=== PATIENT | female | born 1950 | race Caucasian/White ===

== ENCOUNTER → 2016-10-22 | Outpatient (CLI) | payer OTHER ==
[~2016-10-22] VITALS: Ht 160 cm; Wt 109.4 kg
[~2016-10-22] MED LIST: ACETAMINOPHEN325 M1 PO; ADULT LOW DOSE81 MG PO; ADVAIR HFA 230M1 AER INH; ALBUTEROL2.5 MG/0.5 INH; ALLOPURINOL 30300 M1 PO; AMLODIPINE BESY10 MG PO; ASPIR 8181 MG PO; ASPIRIN EC81 M1 PO; AUGMENTIN 875875 MG PO; AZITHROMYCIN 2250 MG PO; CARDIZEM CD180 MG PO; CEFTIN 250 MG250 MG PO; CEPACOL SORE T1 EAC7; COLACE100 MG PO; CORTISPORIN OTI10 M2; CORTISPORIN OTI10 ML OTIC; COUMADIN 3 MG TA3 M1 PO; COUMADIN 4 MG TA4 M1 PO; COUMADIN 5 MG TA5 M1 PO; COZAAR 25 MG TA25 M1 PO; DOLOPHINE HCL10 MG PO; DUONEB 2.5-0.5 M3 ML INH; EX-LAX MAXIMUM25 MG PO; FLECAINIDE ACET50 M1 PO; FOLIC ACID1 MG PO; GABAPENTIN800 M1 PO; INDAPAMIDE2.5 MG PO; LASIX 40 MG TAB40 M2 PO; LIPITOR10 MG PO; LOVENOX100 MG/1 M SQ; LYRICA300 MG PO; MAG-AL PLUS XS30 ML PO; METHADONE HCL 110 M1 PO; METHOTREXATE 22.5 M1 PO; METHOTREXATE 22.5 MG PO; MILK OF MA2400 MG/10 PO; MOBIC15 MG PO; NEO-POLYMYXIN-H10 ML OTIC; NEO/POLY/HC OTIC; NEURONTIN 300300 M1 PO; NEURONTIN 300M300 M2 PO; NEW BLOOD PRESSURE; NOLVADEX20 MG; NOLVADEX20 MG PO; OXCARBAZEPINE150 MG PO; OXCARBAZEPINE300 MG PO; OXYGEN; PEPCID20 MG PO; POTASSIUM20 PO; PRADAXA150 MG PO; PREDNISONE 10 M10 MG; PREDNISONE 20 M20 MG PO; PROAIR HFA8.5 GM INH; PROVENTIL; RECTICARE30 GM TP; SERTRALINE HCL50 MG PO; SPIRIVA INH; SPIRIVA18 MCG INH; STOOL SOFTENER; TENORMIN50 MG PO; TRILEPTAL 300300 MG PO; TRILEPTAL150 MG PO; TYLENOL325 MG PO; VENTOLIN HFA INH8 GM INH; VERAPAMIL ER180 MG PO; VITAMIN D400 UNI1; WATER PILL; ZOLOFT50 MG PO
--- NOTE | ~2016-10-22 | HPC ---
[facility] [address] PAIN MANAGEMENT CONSULTATION Name: DAVID VINCENT Room #: REG MICHAEL Heber.#: [id number] Admission: 10/22/16 Attend Phys: Asya Lai MD Discharge: Date of : 50 Report #: [id number] THIS REPORT FOR: //name// CC: Cole Lai DATE OF SERVICE: 10/22/2016 FOLLOWUP COMPLAINT: Here for medication renewal. FOLLOWUP HISTORY: The patient is a 66-year-old female who has been seen in the pain clinic because of chronic right arm pain. As you recall, she was injured a number of years ago. She continues to have pain and discomfort in her right arm, right wrist and hand. She feels that her medications are helpful. She would like to have the medications renewed. She has had no complication from their use. She notes that there has been some change in the pain course secondary to the change in weather. She feels that gabapentin, methadone and Neurontin continue to be efficacious. These enable her to engage in activities of daily living, she would not be able to without their use. She rates her pain as 5-6 at this juncture. She has pain and discomfort in her right arm as well as in her right leg. PHYSICAL EXAMINATION: GENERAL: BMI is 42, weight 109 kilograms, BMI is 42.7, weight 109 kilograms. VITAL SIGNS: Blood pressure 146/77, pulse 71, respiratory rate 18, room air saturation 94%. EXTREMITIES: The patient complains of pain in the right arm and right wrist especially, rates it as a 5-6 with it and it poses a deep aching pain. IMPRESSION: Chronic right arm pain treated with oxcarbazepine, Neurontin, methadone. RECOMMENDATIONS: We discussed treatment options with the patient. We will continue with her Trileptal 300 mg b.i.d.; Neurontin 300 mg 3 in the morning, 1 in the afternoon and 2 at bedtime; methadone 10, 2 in morning, 1 midday and 2 at night. She will call us if she has any problems with her medications. We would like to thank you for letting us participate in her care. We hope she continues to improve. <ELECTRONICALLY SIGNED> By: Asya Lai MD 10/25/16 0819 1426 1858 Asya Lai MD /nt
[2016-10-22 13:12] VITALS: BP 146/77
== END ==
LOC: PAIN 09:20
DX: G89.29 Other chronic pain (principal); I10 Essential (primary) hypertension; Z87.891 Personal history of nicotine dependence; J44.9 Chronic obstructive pulmonary disease, unspecified; I50.9 Heart failure, unspecified

== ENCOUNTER → 2016-11-18 | Outpatient (CLI) | payer OTHER ==
[~2016-11-18] VITALS: Ht 160 cm; Wt 107.2 kg
--- NOTE | ~2016-11-18 | HPC ---
[facility] [address] [address] PAIN MANAGEMENT CONSULTATION Name: DAVID VINCENT Room #: REG Renea MWill.#: [id number] Admission: 11/18/16 Attend Phys: Julio Silvestre DO Discharge: Date of : 50 Report #: [id number] THIS REPORT FOR: //name// CC: Cole Silvestre The patient is a 66-year-old female, prior seen in the pain clinic for neuropathic pain, brachial plexopathy (right side) requiring complex medication management. She has been stable for remarkably long time utilizing Trileptal 300 mg b.i.d., gabapentin 300 mg 3 tablets in the morning, 1 at noon, and 2 at night for a total of 6 a day and methadone 10 mg 2 in the morning, 1 at noon, and 2 at night. She was last seen by my partner, Dr. Lj Lai in the beginning of the month. She returns to pain clinic today noting that while medications have been helpful, she is having increasing pain in the right arm, which is quite problematic. She relates this to getting off of warfarin and starting Pradaxa. I researched the agent and there are no direct side effects of Pradaxa compatible with patient's increased neuropathic pain. Further, there are no drug interactions between Pradaxa and methadone, gabapentin or Trileptal. PHYSICAL EXAMINATION: Remains relatively unchanged. A 66-year-old female. BMI is 41.9 kilograms per meter squared. Vital signs stable as noted in the EMR. Cervical range of motion is modestly limited. Right arm has a significantly diminished supination, abduction is limited about 45 degrees. There is no light touch allodynia, but simply deep neuropathic aching in the shoulder and arm. ASSESSMENT: Neuropathic pain secondary to distant brachial plexopathy and injury requiring complex medication management. RECOMMENDATION: Given the patient has been stable for quite some time on these agents, the only seeming change is rotation from warfarin to Pradaxa, I would respectfully suggest that Dr. Carter consider rotating back to warfarin for at least 30 days to see if the symptoms erica. If they do, we can point to Pradaxa being the etiology of the change in her pain. If; however, she reverts back to warfarin for 30 days and pain remains unchanged, we can safely say that the changed Pradaxa had no effect and we will look at getting more aggressive with medication changes. I would like, however, to not make a great deal of changes in a patient who has been stable on some fairly significant central acting agents for several years, if the etiology of the pain change is correctable. Today, I have taken the liberty of renewing patient's baseline medication unchanged, methadone 10 mg 2 in the morning, 1 at noon and 2 at night, continuing Trileptal and gabapentin unchanged. Follow up in 2 months for reevaluation. She has a followup appointment with Dr. Carter later in [address] [place] [address] PAIN MANAGEMENT CONSULTATION Name: DAVID VINCENT Room #: REG MICHAEL Crawford#: [id number] Admission: 11/18/16 Attend Phys: Julio Silvestre DO Discharge: Date of : 50 Report #: [id number] November and I will ask that a copy of this dictation be sent to him and respectfully request the rotation back to warfarin or another agent in a class outside of [facility]. <ELECTRONICALLY SIGNED> By: Julio Silvestre DO 11/22/16 0811 1533 2049 Julio Silvestre DO /nt
[2016-11-18 13:12] VITALS: BP 135/70
== END | disposition home or self-care (01) ==
LOC: PAIN 07:07
DX: G54.0 Brachial plexus disorders (principal); G89.29 Other chronic pain; F11.20 Opioid dependence, uncomplicated; Z87.891 Personal history of nicotine dependence

== ENCOUNTER → 2017-02-10 | Outpatient (CLI) | payer OTHER ==
[~2017-02-10] VITALS: Ht 162.6 cm; Wt 110.0 kg
--- NOTE | ~2017-02-10 | HPC ---
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 She had been stable on methadone 10 mg 2 in the morning, 1 at noon and 2 at night for quite some time. Last visit 11/18/2016. Gabapentin 300 mg 6 a day, had prior been little higher, I believe we may have decreased that dose sometime this past fall. She had been doing quite well with this along with oxcarbazepine 300 mg b.i.d. She returns to pain clinic today noting pain is increasing in her right hand, this prompted a moderately prolonged visit, from 14:32 to 15:00 greater than 50% of the 25+ minute visit was spent counseling the patient. She notes she has been unable to afford methotrexate, which now costs $131. She also takes Pradaxa, which is again $132, fortunately Dr. Carter has been giving her samples for this, but with Spiriva and Advair for her chronic pulmonary disease, her medications are becoming quite onerous from an expense standpoint. Having discontinued the methotrexate due to cost concerns, she thought that this may have been increasing pain in her right arm. I am hard pressed think that discontinuing methotrexate would have affected neuropathic pain. She is actually describing transient epidsodic "waves" of pain in her right arm, which come on fairly quickly within seconds and last for 10-30 seconds, but are quite problematic. It has been going on for several months now, which on further discussion with the patient seems to have actually predated her cessation of methotrexate. PHYSICAL EXAMINATION: GENERAL: A 66-year-old female. VITAL SIGNS: BMI is 41.6 kilograms per meter squared. Uses supplemental oxygen. Vital signs stable with oxygen saturation 96 on 2 liters air. MUSCULOSKELETAL: Cervical range of motion is actually fairly good. Right arm has abduction limited about 45 degrees, unable to supinate. Does have some hyperpathia, allodynia about the right forearm. Remaining physical exam is unchanged. We reviewed the fact that opiate medications are being used to provide analgesia adequate to support activities of daily living, not attempting to achieve a specific pain score on the 0-10 Visual Analog Scale. The current opiate medications are providing sufficient analgesia to allow the patient to participate in activities of daily living. The patient is not exhibiting any aberrant behavior suggestive of drug diversion. The patient is not having any [address] [address] PAIN MANAGEMENT CONSULTATION Name: DAVID VINCENT Room #: REG [facility] Yvette#: [id number] Admission: 02/10/17 Attend Phys: Julio Silvestre DO Discharge: Date of : 50 Report #: [id number] adverse reactions to medications. The patient is not suffering from daytime somnolence or mental acuity changes. The patient is managing opiate-induced constipation with appropriate zfkt-rhb-btxvrdj agents and dietary considerations. The patient was counseled on concern for caution with operating a motor vehicle while using opiate medications. A physical exam was performed and the patient's functional status was evaluated. All patients with back pain were advised against the bed rest greater than 4 days and were advised to return to normal activities. Pain score assessment was noted and the treatment plan was reviewed with the patient. All current medications, both prescribed and OTC were reviewed and reconciled on the electronic medical record. Tobacco screening was accomplished and smoking cessation was advised when indicated. BMI was noted and diet/exercise modification was recommended for all patients following outside normal parameters. I reviewed with the patient today their responsibilities to safeguard prescription medications, reviewed their responsibility to utilize medications only as prescribed by the physician. They are to seek and receive pain medications only from 1 physician group ( [facility]). They are to use 1 pharmacy and keep the clinic informed if they change pharmacies. Their responsibilities include making followup visits in a timely fashion and to avoid abrupt discontinuation of medication usage. Their responsibilities further include bringing their medications (bottles from the pharmacy with residual pills) to the visit for possible confirmation of pill counts and the patient understands it is their responsibility to submit to random drug screens to ensure both that the medications prescribed are present, and that no other controlled substances are present. All prescriptions provided today were generated electronically. ASSESSMENT: Neuropathic pain, complex regional pain syndrome, right upper extremity, status post right brachial plexus avulsion injury greater than a decade ago requiring complex medication management. Incidentally, last urine drug screen was on October 2015, positive for prescribed medications. RECOMMENDATION: After a long discussion with the patient today, we have elected to increase gabapentin from 6 to 8 tablets a day. If after one week, this does not afford adequate relief, we will increase her oxcarbazepine from 300 mg b.i.d. to t.i.d. We will continue methadone unchanged 10 mg 2 in the morning, 1 at noon, and 2 at night. I have taken the liberty of writing for 2 months current medications. Follow up for medicaiton management in 2 months, earlier if needed. <ELECTRONICALLY SIGNED> By: Julio Silvestre DO 02/12/17 0932 1516 0216 Julio Silvestre DO /nt
[2017-02-10 14:20] VITALS: BP 141/85
== END | disposition home or self-care (01) ==
LOC: PAIN 07:49
DX: G90.511 Complex regional pain syndrome I of right upper limb (principal); I50.9 Heart failure, unspecified; F11.20 Opioid dependence, uncomplicated; J44.1 Chronic obstructive pulmonary disease with (acute) exacerbation; Z87.81 Personal history of (healed) traumatic fracture

== ENCOUNTER → 2017-03-26 | Outpatient (CLI) | payer OTHER | LOC: RAD 01:43 | DX: R92.1 Mammographic calcification found on diagnostic imaging of breast (principal) ==

== ENCOUNTER → 2017-04-17 | Outpatient (CLI) | payer OTHER ==
[~2017-04-17] VITALS: Ht 160 cm; Wt 111.3 kg
[2017-04-17 12:59] VITALS: BP 142/79
== END ==
LOC: PAIN 04-14 06:51
DX: M79.2 Neuralgia and neuritis, unspecified (principal); I10 Essential (primary) hypertension; Z87.891 Personal history of nicotine dependence; Z79.899 Other long term (current) drug therapy; Z98.890 Other specified postprocedural states; E66.01 Morbid (severe) obesity due to excess calories; Z68.41 Body mass index [BMI] 40.0-44.9, adult

== ENCOUNTER 2017-06-09 09:41 | Emergency (ER) | payer OTHER ==
[~2017-06-09] VITALS: Ht 160 cm; Wt 104.3 kg
--- NOTE | ~2017-06-09 | EKG ---
[address] [address] ELECTROCARDIOGRAM REPORT Name: DAVID VINCENT Room #: DEP HERMINIA Crawford#: [id number] Admission: 06/09/17 Attend Phys: Discharge: 06/09/17 Date of : 50 Report #: [id number] THIS REPORT FOR: //name// [facility] ED Test Date: 2017-06-09 Test Time: 10:01:21 Pat Name: DAVID VINCENT Department: Room: Gender: F Hematologist: MELONY : 1950 Requested By: Cole Lanza Order Number: [id number] MD: Walt Carter Measurements Intervals [place] Rate: 78 P: 52 NM: QRS: 24 QRSD: 178 T: 6 QT: 397 QTc: 453 Interpretive Statements Sinus rhythm RBBB Electronically Signed On 06-09-2017 16:48:45 CDT by Walt Carter [email or web address] <ELECTRONICALLY SIGNED> By: Walt Carter MD 06/09/17 1648 1001 1001 Walt Carter MD /EPI
--- NOTE | ~2017-06-09 | EKG ---
[address] [place] [address] ELECTROCARDIOGRAM REPORT Name: DAVID VINCENT Room #: DEP HREMINIA Crawford#: [id number] Admission: 06/09/17 Attend Phys: Discharge: 06/09/17 Date of : 50 Report #: [id number] THIS REPORT FOR: //name// [facility] ED Test Date: 2017-06-09 Test Time: 10:40:26 Pat Name: DAVID VINCENT Department: Room: Gender: F Rn Recruitment: MELONY : 1950 Requested By: Cole Lanza Order Number: [id number] MD: Walt Carter Measurements Intervals [place] Rate: 76 P: -21 [place]: 207 QRS: 16 QRSD: 149 T: 1 QT: 405 QTc: 456 Interpretive Statements Sinus rhythm Right bundle branch block Compared to ECG 09/18/2016 23:04:40 No significant changes Electronically Signed On 06-09-2017 16:49:48 CDT by Walt Carter [email or web address] <ELECTRONICALLY SIGNED> By: Walt Carter MD 06/09/17 1649 1040 39 Walt Carter MD /TORO
[2017-06-09] MEDS ORDERED: COUMADIN 2.5MG2.5 M1 PO (09:57)
[2017-06-09 10:26] LABS: HEMATOCRIT 35.6 % (37.0-47.0); HEMOGLOBIN 11.6 gm/dL (12.0-15.0); MANUAL DIFF YES; MCH 29.9 pg (26.0-34.0); MCHC 32.6 g/dL (28.0-37.0); MCV 91.6 fL (80.0-100.0); PLATELET COUNT 148 thou/uL (150-400); RBC 3.88 mil/uL (4.20-5.00); RDW 15.7 % (10.5-14.5); WBC 6.3 thou/uL (4.0-11.0)
[2017-06-09 10:34] LABS: ANION GAP 1 mmol/L (7-16); BUN 17 mg/dL (7-18); CHLORIDE 103 mmol/L (98-107); CO2 38 mmol/L (21-32); CREATININE 0.7 mg/dL (0.6-1.0); GLUCOSE 121 mg/dL (74-106); INR 2.7; POTASSIUM 4.5 mmol/L (3.5-5.1); SODIUM 142 mmol/L (136-145)
[2017-06-09 10:43] LABS: ALBUMIN 3.7 g/dL (3.4-5.0); ALKALINE PHOSPHATASE 118 U/L (46-116); SGOT 21 U/L (15-37); SGPT 19 U/L (30-65); TOTAL BILIRUBIN 0.2 mg/dL (<0.1-1.0); TOTAL PROTEIN 7.3 g/dL (6.4-8.2); TROPONIN-I < 0.04 ng/mL (<0.04-0.07)
[2017-06-09 11:00] LABS: ABSOLUTE NEUTROPHILS 5.4 thou/uL (1.4-8.2); ANISOCYTOSIS SLIGHT; TOTAL CELL COUNT 100
== END 2017-06-09 13:43 | disposition home or self-care (01) ==
LOC: ER 09:41
PROVIDERS: Emergency Medicine
DX: R06.00 Dyspnea, unspecified (principal); J44.9 Chronic obstructive pulmonary disease, unspecified; M06.9 Rheumatoid arthritis, unspecified; I48.91 Unspecified atrial fibrillation; I11.0 Hypertensive heart disease with heart failure; I50.9 Heart failure, unspecified; Z90.721 Acquired absence of ovaries, unilateral; Z88.5 Allergy status to narcotic agent; Z87.891 Personal history of nicotine dependence

== ENCOUNTER → 2017-06-20 | Outpatient (CLI) | payer OTHER ==
[~2017-06-20] VITALS: Ht 157.5 cm; Wt 110.2 kg
[~2017-06-20] MED LIST changes: +COUMADIN 2.5MG2.5 M1 PO
--- NOTE | ~2017-06-20 | HPC ---
[facility] [place] [address] PAIN MANAGEMENT CONSULTATION Name: DAVID VINCENT Room #: REG SWATIRenea Crawford#: [id number] Admission: 06/20/17 Attend Phys: Julio Silvestre DO Discharge: Date of : 50 Report #: [id number] THIS REPORT FOR: //name// CC: Cole Silvestre The patient is a 67-year-old female, long treated for neuropathic pain, status post brachial plexus avulsion (right) requiring high-risk complex medication management. Last seen on 04/17/2017. Continued on methadone 10 mg increased from 5 to 6 a day; gabapentin 300 mg, 2400 mg daily (3 in the morning, 2 at noon, 3 at night); oxcarbazepine 300 mg t.i.d. Last visit on 04/17/2017. We had obtained a urine drug screen. It was positive for prescribed medications as expected. She returns to the pain clinic today noting medications are helpful. The large bruise on her left arm. She does not remember what happened there, though she is on warfarin. She describes chronic deep aching sensation in that right arm. Rates it 6 on a VAS, exacerbated with movement. PHYSICAL EXAMINATION: Shows a pleasant 67-year-old female, BMI is elevated at 44.4 kg/m2. Blood pressure is elevated at 159/89, pulse 80, respirations 18. She has about 45 degrees abduction. She can pronate, but cannot supinate her right arm. Actually has pretty good flexion and extension at the elbow. Remarkable recoveries following nerve transposition surgery after the brachial plexus avulsion. We reviewed the fact that opiate medications are being used to provide analgesia adequate to support activities of daily living, not attempting to achieve a specific pain score on the 0-10 Visual Analog Scale. The current opiate medications are providing sufficient analgesia to allow the patient to participate in activities of daily living. The patient is not exhibiting any aberrant behavior suggestive of drug diversion. The patient is not having any adverse reactions to medications. The patient is not suffering from daytime somnolence or mental acuity changes. The patient is managing opiate-induced constipation with appropriate bjkx-kbq-kdahdvg agents and dietary considerations. The patient was counseled on concern for caution with operating a motor vehicle while using opiate medications. A physical exam was performed and the patient's functional status was evaluated. All patients with back pain were advised against the bed rest greater than 4 days and were advised to return to normal activities. Pain score assessment was noted and the treatment plan was reviewed with the patient. All current medications, both prescribed and OTC were reviewed and reconciled on the electronic medical record. Tobacco screening was accomplished and smoking cessation was advised when indicated. BMI was noted and diet/exercise modification was recommended for all patients following outside normal parameters. I reviewed with the patient today their responsibilities to [address] [address] PAIN MANAGEMENT CONSULTATION Name: DAVID VINCENT Room #: REG CL Yvette#: [id number] Admission: 06/20/17 Attend Phys: Julio Silvestre DO Discharge: Date of : 50 Report #: [id number] prescription medications, reviewed their responsibility to utilize medications only as prescribed by the physician. They are to seek and receive pain medications only from 1 physician group ([facility]). They are to use 1 pharmacy and keep the clinic informed if they change pharmacies. Their responsibilities include making followup visits in a timely fashion and to avoid abrupt discontinuation of medication usage. Their responsibilities further include bringing their medications (bottles from the pharmacy with residual pills) to the visit for possible confirmation of pill counts and the patient understands it is their responsibility to submit to random drug screens to ensure both that the medications prescribed are present, and that no other controlled substances are present. All prescriptions provided today were generated electronically. ASSESSMENT: Neuropathic pain requiring high-risk complex medication management. The patient with comorbidities including morbid obesity. Body mass index is 44.4 kg/m2. Chronic obstructive pulmonary disease. We did talk a little bit today about the patient changing from supplemental oxygen canisters to an oxygen concentrator. I suggested she follow up with her curriculum and assessment coordinator regarding this technology as I am not very well versed on outpatient care for her chronic obstructive pulmonary disease. She was admitted to the hospital on 06/09/2017 (again, last seen in the pain clinic on 04/17/2017) for shortness of breath. This appeared just to be an exacerbation of chronic obstructive pulmonary disease. Otherwise, the patient is doing well on current medications. We have elected to continue unchanged methadone 10 mg 6 a day, gabapentin 2400 mg a day, oxcarbazepine 900 mg a day. Follow up in 3 months for reevaluation. Discharged in good and stable condition. <ELECTRONICALLY SIGNED> By: Julio Silvestre DO 06/26/17 0847 1239 2138 Julio Silvestre DO /nt
[2017-06-20 15:09] VITALS: BP 159/89
== END | disposition home or self-care (01) ==
LOC: PAIN 14:00
DX: G62.9 Polyneuropathy, unspecified (principal); E66.01 Morbid (severe) obesity due to excess calories; Z68.41 Body mass index [BMI] 40.0-44.9, adult; J44.9 Chronic obstructive pulmonary disease, unspecified; Z79.899 Other long term (current) drug therapy; Z87.891 Personal history of nicotine dependence

== ENCOUNTER → 2017-09-19 | Outpatient (CLI) | payer OTHER ==
[~2017-09-19] VITALS: Ht 160 cm; Wt 101.6 kg
[~2017-09-19] MED LIST changes: +PREDNISONE 5 MG5 M1 PO
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
[2017-09-19 13:01] LABS: ABG SAMPLE TYPE ARTERIAL; BE(vivo) 3.6 mmol/L (-2 to +3); HCO3 28.8 mmol/L (22.0-26.0); LACTATE 0.85 mmol/L (0.5-2.0); O2(CT) 15.5 mL/dL (15.0-23.0); O2Hb 89.4 % (92.0-98.0); PO2 55.7 mmHg (80.0-100.0); pH 7.414 (7.360-7.450); sO2 89.2 % (92.0-98.0); tCO2 30.2 mmol/L (24.0-30.0)
[2017-09-19 13:02] LABS: STICK SITE L.BRACHIAL
[2017-09-19 14:30] LABS: HEMATOCRIT 36.5 % (37.0-47.0); HEMOGLOBIN 11.6 gm/dL (12.0-15.0); MCH 30.3 pg (26.0-34.0); MCHC 31.7 g/dL (28.0-37.0); MCV 95.5 fL (80.0-100.0); RBC 3.83 mil/uL (4.20-5.00); RDW 15.6 % (10.5-14.5); WBC 4.8 thou/uL (4.0-11.0)
[2017-09-19 14:34] VITALS: BP 137/60
[2017-09-19 14:40] LABS: CALCIUM 8.8 mg/dL (8.5-10.1); CREATININE 0.5 mg/dL (0.6-1.0)
[2017-09-19 14:45] LABS: % SATURATION 11 % (20-39); IRON 31 ug/dL (50-170); TIBC 286 ug/dL (250-450); UIBC 255 ug/dL
[2017-09-19 14:46] LABS: ALBUMIN 3.6 g/dL (3.4-5.0); TOTAL BILIRUBIN 0.1 mg/dL (<0.1-1.0); TOTAL PROTEIN 6.5 g/dL (6.4-8.2)
== END ==
LOC: PAIN 06:57
PROVIDERS: Anesthesiology Pain Medicine
DX: J44.9 Chronic obstructive pulmonary disease, unspecified (principal); G89.4 Chronic pain syndrome; M79.2 Neuralgia and neuritis, unspecified; Z98.890 Other specified postprocedural states; Z79.899 Other long term (current) drug therapy

== ENCOUNTER 2017-10-24 19:51 | Emergency (ER) | payer OTHER ==
[~2017-10-24] VITALS: Ht 160 cm; Wt 101.6 kg
[2017-10-24] MEDS ORDERED: ZPAK PO (21:20)
[2017-10-24 21:30] VITALS: BP 102/55
[2017-11-13] MEDS ORDERED: METHADONE HCL 110 M1 PO (13:50)
[2017-11-13] MEDS ORDERED: NEURONTIN 300300 M1 PO (13:50)
[2017-11-13] MEDS ORDERED: OXCARBAZEPINE300 MG PO (13:50)
[2018-01-15] MEDS ORDERED: OXCARBAZEPINE300 MG PO (14:31)
[2018-01-15] MEDS ORDERED: NEURONTIN 300300 M1 PO (14:31)
[2018-01-15] MEDS ORDERED: METHADONE HCL 110 M1 PO (14:31)
[2018-03-20] MEDS ORDERED: OXCARBAZEPINE300 MG PO (13:52)
[2018-03-20] MEDS ORDERED: METHADONE HCL 110 M1 PO (13:52)
[2018-03-20] MEDS ORDERED: NEURONTIN 300300 M1 PO (13:52)
[2018-05-15] MEDS ORDERED: OXCARBAZEPINE300 MG PO (07:57)
[2018-05-15] MEDS ORDERED: NEURONTIN 300300 M1 PO (07:57)
[2018-05-15] MEDS ORDERED: METHADONE HCL 110 M1 PO (07:57)
[2018-07-15] MEDS ORDERED: METHADONE HCL 110 M1 PO ×2 (14:03→14:32)
[2018-07-15] MEDS ORDERED: NEURONTIN 300300 M1 PO (14:32)
[2018-07-15] MEDS ORDERED: OXCARBAZEPINE300 MG PO (14:32)
== END 2017-10-24 21:31 | disposition home or self-care (01) ==
LOC: ER 19:51
DX: J06.9 Acute upper respiratory infection, unspecified (principal); I10 Essential (primary) hypertension; M06.9 Rheumatoid arthritis, unspecified; I48.91 Unspecified atrial fibrillation; I50.9 Heart failure, unspecified; Z87.891 Personal history of nicotine dependence; Z88.6 Allergy status to analgesic agent

== ENCOUNTER → 2017-11-13 | Outpatient (CLI) | payer OTHER ==
[~2017-11-13] VITALS: Ht 160 cm; Wt 98.0 kg
[~2017-11-13] MED LIST changes: +ZPAK PO
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
[2017-11-13 13:32] VITALS: BP 114/66
== END ==
LOC: PAIN 06:57
DX: M79.604 Pain in right leg (principal); M79.2 Neuralgia and neuritis, unspecified; Z79.899 Other long term (current) drug therapy

== ENCOUNTER → 2018-01-15 | Outpatient (CLI) | payer OTHER ==
[~2018-01-15] VITALS: Ht 160 cm; Wt 101.6 kg
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
[2018-01-15 14:09] VITALS: BP 144/64
== END ==
LOC: PAIN 07:11
DX: M79.2 Neuralgia and neuritis, unspecified (principal); Z79.899 Other long term (current) drug therapy

== ENCOUNTER → 2018-03-20 | Outpatient (CLI) | payer OTHER ==
[~2018-03-20] VITALS: Ht 160 cm; Wt 98.3 kg
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
[2018-03-20 13:21] VITALS: BP 151/69
== END ==
LOC: PAIN 07:36
DX: M79.601 Pain in right arm (principal); M79.2 Neuralgia and neuritis, unspecified; J44.9 Chronic obstructive pulmonary disease, unspecified

== ENCOUNTER → 2018-04-09 | Outpatient (CLI) | payer OTHER ==
[2018-04-09 16:13] LABS: HEMATOCRIT 31.4 % (37.0-47.0); HEMOGLOBIN 10.6 gm/dL (12.0-15.0); MCH 31.9 pg (26.0-34.0); MCHC 33.7 g/dL (28.0-37.0); MCV 94.6 fL (80.0-100.0); RBC 3.32 mil/uL (4.20-5.00); RDW 13.9 % (10.5-14.5); WBC 3.8 thou/uL (4.0-11.0)
[2018-04-09 16:28] LABS: % SATURATION 10 % (20-39); IRON 26 ug/dL (50-170); TIBC 267 ug/dL (250-450)
[2018-04-09 16:30] LABS: ALBUMIN 3.6 g/dL (3.4-5.0); CALCIUM 8.4 mg/dL (8.5-10.1); CREATININE 0.7 mg/dL (0.6-1.0); POTASSIUM 3.9 mmol/L (3.5-5.1); TOTAL BILIRUBIN 0.2 mg/dL (<0.1-1.0); TOTAL PROTEIN 6.2 g/dL (6.4-8.2)
== END ==
LOC: RAD 15:33
PROVIDERS: Internal Medicine Pulmonary Disease
DX: J16.8 Pneumonia due to other specified infectious organisms (principal); I51.7 Cardiomegaly; J98.4 Other disorders of lung; I50.9 Heart failure, unspecified; M25.311 Other instability, right shoulder; R91.8 Other nonspecific abnormal finding of lung field

== ENCOUNTER → 2018-05-15 | Outpatient (CLI) | payer OTHER ==
[~2018-05-15] VITALS: Ht 160 cm; Wt 96.3 kg
[2018-05-15 14:57] VITALS: BP 139/51
== END ==
LOC: PAIN 06:35
DX: M79.601 Pain in right arm (principal); G89.29 Other chronic pain; I10 Essential (primary) hypertension; M17.0 Bilateral primary osteoarthritis of knee; Z79.899 Other long term (current) drug therapy; Z79.891 Long term (current) use of opiate analgesic; Z87.891 Personal history of nicotine dependence

== ENCOUNTER → 2018-07-15 | Outpatient (CLI) | payer OTHER ==
[~2018-07-15] VITALS: Ht 160 cm; Wt 91.4 kg
--- NOTE | ~2018-07-15 | HPC ---
[facility] [address] [place] [address] PAIN MANAGEMENT CONSULTATION Name: DAVID VINCENT Room #: REG MICHAEL MHeber.#: [id number] Admission: 07/15/18 Attend Phys: Asya Lai MD Discharge: Date of : 50 Report #: [id number] THIS REPORT FOR: //name// CC: Cole Lai DATE OF SERVICE: 07/15/2018 FOLLOWUP COMPLAINT: Here for medication renewal. FOLLOWUP HISTORY: The patient is a 68-year-old female who has been followed in the Pain Clinic because of chronic pain. She has been treated since 2002. She continues to have neuropathic pain involving her right upper extremity. She finds that opioid medications over the years have been helpful. She uses methadone, which has been beneficial. She also continues to find that gabapentin 300 mg is helpful. She would like to have renewal of her medications. She continues to feel that her thinking remains clear. No confusion with use of her medications. Does continue to have some burning and dysesthesia involving her right arm. Pain is worse when she lets it hang in a dependent position. Rates her pain as a 5-10. Notes her pain improves when she holds her arm at chest level. Tylenol is beneficial as well. ALLERGIES: MORPHINE. CURRENT MEDICATIONS: Oxcarbazepine 300 mg t.i.d.; methadone 10 mg 1 p.o. a.m., 1 noon, 2 at bedtime; Coumadin 2.5 mg; Colace 100 mg; Zoloft 50 mg; albuterol 2.5/0.5 mL inhalation 4 times daily; potassium 20 mEq; Lasix 40 mg; amlodipine 10 mg; Lipitor 10 mg; atenolol 50 mg b.i.d.; oxygen; methotrexate 2.5 mg; 20 mg methotrexate weekly; Advair 2 puffs b.i.d.; folic acid 1 mg. PAIN CLINIC ASSESSMENT/PQRS: 1. Osteoarthritis. The patient has some left lower extremity as well as right lower extremity osteoarthritic changes. 2. The patient is complaining of some problems with her left lower extremity in regards to rheumatoid arthritis. 3. Height 5 feet 3 inches, weight 201 pounds, BMI is 35. 4. Vital signs: Blood pressure 145/74, pulse 60, respiratory rate 12, room air saturation 97%. 5. Pain intensity 5/6. 6. Risk assessment. The patient has not fallen in the last 3 months, but does need some assistance with walking. 7. Blood thinner. The patient is on warfarin. 8. History of hypertension. The patient is being treated for hypertension. 9. Opioid therapy greater than 6 weeks. The patient is receiving her medications from [place] [address] PAIN MANAGEMENT CONSULTATION Name: DAVID VINCENT Room #: REG CLRenea Crawford#: [id number] Admission: 07/15/18 Attend Phys: Asya Lai MD Discharge: Date of : 50 Report #: [id number] 10. Risk assessment tool, low risk 0/3 for use of opioids. 11. Functional assessment tool, . 12. Recreational drug use: The patient denies. 13. Tobacco: The patient is a former smoker. 14. Alcohol: The patient denies use of alcoholic beverages at this juncture. PHYSICAL EXAMINATION: GENERAL: The patient is a well-developed, well-nourished white female. She has nasal cannula in place. She is receiving oxygen. The patient's speech is fluent. Affect is appropriate. Speech is appropriate. The patient did find that her oxygen tank had run low while she was on her way to the hospital. HEENT: Normocephalic, atraumatic. Extraocular eye muscles intact. Sclerae nonicteric. Mucous membranes are moist. Nasal cannula in her nose. Hearing is within normal limits. Sclerae nonicteric. NECK: Supple, nontender. Right cervical exam without bruits. LUNGS: Clear without wheezing or rhonchi. The patient was a bit short of breath when she arrived secondary to her oxygen tank running out of oxygen. CARDIOVASCULAR: Regular rate. History of atrial fibrillation. ABDOMEN: Protuberant without organomegaly. EXTREMITIES: All extremities are with normal pulses. The patient has pain and discomfort involving her right arm. Notes some decreased function below the biceps and forearm areas. States her arm is sore as the ____. IMPRESSION: 1. 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 2. Hypertension. 3. 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 4. Hypercholesterolemia. 5. Respiratory problems/chronic obstructive pulmonary disease, uses 4 liters of oxygen. 6. Rheumatoid arthritis. 7. Factor V Leiden - on Coumadin. 8. History of atrial fibrillation. 9. Congestive heart failure. RECOMMENDATIONS: We discussed treatment options with the patient. At this juncture, she finds that her medications are helpful. She has returned to the Pain Clinic for a renewal. The patient states that while she was driving here, she noticed that her oxygen canisters started to misfunction. There was a lack of oxygen. She did have some difficulty secondary to low oxygenation. She was provided oxygen in the Pain Clinic. She was provided oxygen to return home. She will return the canister to the hospital. We explained to her the need to return this empty canister and states that she would. She would like to continue with her medications of methadone, oxcarbazepine, and gabapentin. A script for these medications have been written. She will call us if she has any [facility] [address] [place] [address] PAIN MANAGEMENT CONSULTATION Name: DAVID VINCENT Room #: REG [facility].#: [id number] Admission: 07/15/18 Attend Phys: Asya Lai MD Discharge: Date of : 50 Report #: [id number] concerns. We would like to thank you for letting us participate in her care. We hope she continues to improve. <ELECTRONICALLY SIGNED> By: Asya Lai MD 08/03/18 1124 [id number] Asya Lai MD /nt
[2018-07-15 13:51] VITALS: BP 145/74
== END ==
LOC: PAIN 06:56
DX: M79.601 Pain in right arm (principal); G89.29 Other chronic pain; M17.0 Bilateral primary osteoarthritis of knee; M06.862 Other specified rheumatoid arthritis, left knee; M06.861 Other specified rheumatoid arthritis, right knee; Z79.899 Other long term (current) drug therapy

== ENCOUNTER 2018-07-17 20:27 | Emergency (ER) | payer OTHER ==
[~2018-07-17] VITALS: Ht 160 cm; Wt 86.2 kg
[2018-07-17 21:04] LABS: ABSOLUTE NEUTROPHILS 3.9 thou/uL (1.4-8.2); BASOPHILS 0.3 % (0.0-2.0); EOSINOPHILS 0.5 % (0.0-3.0); HEMATOCRIT 32.9 % (37.0-47.0); HEMOGLOBIN 11.4 gm/dL (12.0-15.0); LYMPHOCYTES 11.6 % (24.0-44.0); MCH 32.6 pg (26.0-34.0); MCHC 34.8 g/dL (28.0-37.0); MCV 93.8 fL (80.0-100.0); MONOCYTES 4.5 % (1.0-8.0); PLATELET COUNT 149 thou/uL (150-400); POLYS 83.1 % (36.0-66.0); RBC 3.51 mil/uL (4.20-5.00); RDW 13.9 % (10.5-14.5); WBC 4.7 thou/uL (4.0-11.0)
[2018-07-17 21:09] LABS: CALCIUM 8.7 mg/dL (8.5-10.1); CREATININE 0.6 mg/dL (0.6-1.0); POTASSIUM 3.7 mmol/L (3.5-5.1)
[2018-07-17 21:16] LABS: INR 3.3; PROTIME 32.8 Seconds (9.3-11.4)
[2018-07-17 21:32] LABS: URINE BILIRUBIN NEGATIVE (Negative); URINE BLOOD NEGATIVE (Negative); URINE CLARITY CLEAR; URINE COLOR YELLOW; URINE GLUCOSE-RANDOM* NEGATIVE (Negative); URINE KETONES NEGATIVE (Negative); URINE LEUKOCYTES-REFLEX NEGATIVE (Negative); URINE NITRITE-REFLEX NEGATIVE (Negative); URINE PROTEIN (DIPSTICK) TRACE (Negative); URINE UROBILINOGEN 0.2 E.U./dl (0.2-1.0)
== END 2018-07-17 22:51 | disposition home or self-care (01) ==
LOC: ER 20:27
PROVIDERS: Physician Assistant
DX: R25.2 Cramp and spasm (principal); R60.0 Localized edema; J44.9 Chronic obstructive pulmonary disease, unspecified; M06.9 Rheumatoid arthritis, unspecified; I48.0 Paroxysmal atrial fibrillation; I11.0 Hypertensive heart disease with heart failure; I50.9 Heart failure, unspecified; Z87.891 Personal history of nicotine dependence; Z88.5 Allergy status to narcotic agent

== ENCOUNTER → 2018-09-08 | Outpatient (CLI) | payer OTHER ==
[~2018-09-08] VITALS: Ht 160 cm; Wt 95.3 kg
[~2018-09-08] MED LIST changes: +VOLTAREN GEL 1100 G2 TOP
--- NOTE | ~2018-09-08 | HPC ---
[facility] [address] [place] [address] PAIN MANAGEMENT CONSULTATION Name: DAVID VINCENT [id number] Admission: 09/08/18 Attend Phys: Hamida Nava Discharge: Date of : 50 Report #: [id number] THIS REPORT FOR: //name// CC: Hamida Lai MD DATE OF SERVICE: 09/08/2018 CHIEF COMPLAINT: Neuropathic pain, right upper extremity, status post brachial plexus avulsion injury. HISTORY OF PRESENT ILLNESS: This is a very pleasant 68-year-old female who returns to the pain clinic today for followup for her medications. She suffers from a right brachial plexus avulsion injury. She has been having ongoing neuropathic pain involving her right upper extremity. She does complain of right knee pain and left knee pain, but tells me the right is worse today. She needs a knee replacement and is thinking about having that done in October. She rates her pain today of 8/10, worse with movement, using her arm that her medication is helpful. The patient denies daytime somnolence or constipation currently. She tells me that she is awaiting to have surgery with Dr. Fernández for her knee on the right side; he had already replaced her left knee. She is needing pulmonary clearance and is waiting that from Dr. Quesada, but is very hopeful to have it done in October. CURRENT MEDICATIONS: Morphine. List of medications, Neurontin 300 mg 3 tablets in the morning, 2 at noon, 3 at night, methadone 10 mg tablets 4 tablets total daily, oxcarbazepine 300 mg 3 times a day, Coumadin 2.5 mg daily, Colace, Zoloft 50 mg daily, albuterol inhaler as needed, potassium 40 mEq daily, Lasix 40 mg twice a day, amlodipine 10 mg daily, Lipitor 10 mg twice a day, Tenormin 50 mg twice a day, methotrexate 2.5 mg weekly, Advair and folic acid. PQRS: 1. She has a history of osteoarthritis in her upper and lower extremities, history of rheumatoid arthritis in her upper extremities and lower extremities. 2. Her height is 5 feet 3 inches, her weight is 210, BMI is 37.2, blood pressure 147/67, pulse is 68, respirations are 14, oxygen sat is 94%. Pain intensity is 8/10. 3. She denies any dizziness is in a wheelchair today and does not require help walking, has not fallen in the last 3 months. She is on Coumadin and she has a history of taking antihypertensive medicines. Her opioid therapy is greater than 6 weeks; therefore an opioid signed contract is on the chart. She has a low risk assessment and her functional assessment is . 4. She denies recreational drug use. Does not smoke tobacco and does not drink alcohol. [address] [address] PAIN MANAGEMENT CONSULTATION Name: DAVID VINCENT Room #: REG [facility] Yvette#: [id number] Admission: 09/08/18 Attend Phys: Hamida Nava Discharge: Date of : 50 Report #: [id number] 5. We did check her prescription monitoring system and she is filling from Dr. Lj Lai most recently and prior to that, Dr. Julio Silvestre. They seem appropriate for her medication fills. I told her to keep her medicines safeguarded. PHYSICAL EXAMINATION: GENERAL: The patient is a well-developed white female. She is wearing 2 liters of nasal cannula currently. Speech is fluent. Her affect is appropriate. She is alert and orientated x 3. HEENT: Normocephalic, atraumatic. Extraocular eye muscles are intact. Mucous membranes are moist. Again, nasal cannula in use. Hearing is within normal limits. NECK: No JVD or adenopathy present. EXTREMITIES: Moves all extremities. She has pain and discomfort in her right arm, noticed severe dryness flaky in her right hand. The patient does complain of some pain in her right wrist, has some allodynia throughout the arm. The patient also has right knee pain, tender to the touch. Rates her pain score of 8/10. We reviewed the fact that opiate medications are being used to provide analgesia adequate to support activities of daily living, not attempting to achieve a specific pain score on the 0-10 Visual Analog Scale. The current opiate medications are providing sufficient analgesia to allow the patient to participate in activities of daily living. The patient is not exhibiting any aberrant behavior suggestive of drug diversion. The patient is not having any adverse reactions to medications. The patient is not suffering from daytime somnolence or mental acuity changes. The patient is managing opiate-induced constipation with appropriate xmup-haf-smjtket agents and dietary considerations. The patient was counseled on concern for caution with operating a motor vehicle while using opiate medications. A physical exam was performed and the patient's functional status was evaluated. All patients with back pain were advised against the bed rest greater than 4 days and were advised to return to normal activities. Pain score assessment was noted and the treatment plan was reviewed with the patient. All current medications, both prescribed and OTC were reviewed and reconciled on the electronic medical record. Tobacco screening was accomplished and smoking cessation was advised when indicated. BMI was noted and diet/exercise modification was recommended for all patients following outside normal parameters. I reviewed with the patient today their responsibilities to safeguard prescription medications, reviewed their responsibility to utilize medications only as prescribed by the physician. They are to seek and receive pain medications only from 1 physician group ( [facility]). They are to use 1 pharmacy and keep the clinic informed if they change pharmacies. Their [facility] [address] [place] [address] PAIN MANAGEMENT CONSULTATION Name: DAVID VINCENT Room #: REG MICHAEL Crawford#: [id number] Admission: 09/08/18 Attend Phys: Hamida Nava Discharge: Date of : 50 Report #: [id number] responsibilities include making followup visits in a timely fashion and to avoid abrupt discontinuation of medication usage. Their responsibilities further include bringing their medications (bottles from the pharmacy with residual pills) to the visit for possible confirmation of pill counts and the patient understands it is their responsibility to submit to random drug screens to ensure both that the medications prescribed are present, and that no other controlled substances are present. All prescriptions provided today were generated electronically. ASSESSMENT: 1. 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 2. Hypertension. 3. 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 4. Hypocholesterolemia. 5. Chronic obstructive pulmonary disease, uses oxygen from 2-4 liters nasal cannula. 6. Rheumatoid arthritis. 7. Osteoarthritis involving both knees. 8. Factor V Leiden, Coumadin use. 9. History of atrial fibrillation. 10. Congestive heart failure. PLAN: 1. The patient to return to the clinic today for a refill of her medications. The patient tells me that she is going to have a right total knee hopefully in October as long as she has medical clearance. We discussed in great detail and length about decreasing the opioids that she currently takes for better pain control post-surgery. She does tell me that when she had her left knee replaced, she had significant pain following surgery and understands that lowest most effective dose prior would probably be a good thing, but unsure that she would like to decrease at this time: 2. I discussed with the patient the guidelines that the practice has been using of the CDC guidelines of 90 morphine mEq or lower per day. The patient is on methadone taking 2 in the morning, 1 in the midday and 1 at night. Therefore, her amount that she takes on a daily basis is per the calculations 320 on one calculation and the other calculation is 120. The patient understands the need to decrease this medicine. She tells me that sometimes she does skip her noontime methadone dose and may take it at night or not take it at all. We have decided that we will continue with her four pills a day currently that the patient does not take her middle dose. She is to put it in a pill bottle and not to take it in the evening, but to bring it with her at her next appointment and we will determine how many methadone that she did actually takes a day. She maybe has significantly already decreased her methadone use and not be aware of it. The patient did fill her last prescription in a timely fashion, so I believe she may be taking all 4 pills a day, but we will see how this goes in [address] [address] PAIN MANAGEMENT CONSULTATION Name: DAVID VINCENT Room #: REG MICHAEL Crawford#: [id number] Admission: 09/08/18 Attend Phys: Hamida Nava Discharge: Date of : 50 Report #: [id number] the next month. The patient is agreeable to this plan of care. 3. The patient also told that according to the clinic guidelines now, she will be seen on a monthly basis for her methadone if we are able to decrease her that she will be able to go out and be seen every 2 months. The patient is not happy about this, but understands the guidelines. 4. The patient has severe scaling of her skin on her right hand today. We did talk about moisturizers such as coconut oil to see if that would help the flakiness that is present. The patient will try to use this in the future. 5. We discussed that the patient is unable to take oral nonsteroidal anti-inflammatories due to her Coumadin therapy, but since she is having increased pain in her right knee, we discussed Voltaren gel. The patient thinks she has tried this in the past that her mother may have used unsure if that is actually what it was called. We decided that we would give her a prescription today to try on her right arthritic knee and her right wrist, which her arthritis has also been bothering her there. Script for diclofenac gel 1% 2 grams 4 times a day #2 with one additional refill was given today for that. 6. The patient is agreeable with the above plan of care, will return in 1 month's time frame with her left over prescription of methadone and we will develop the plan for the next month after that. The patient is seen in collaboration today with Dr. Thierno Silvestre. <ELECTRONICALLY SIGNED> By: Hamida Nava 09/14/18 0951 [id number] 1511 Hamida Nava /nt
[2018-09-08 12:48] VITALS: BP 147/67
== END ==
LOC: PAIN 10:05
DX: S14.3XXA Injury of brachial plexus, initial encounter (principal); I10 Essential (primary) hypertension; G89.29 Other chronic pain; E78.00 Pure hypercholesterolemia, unspecified; M17.0 Bilateral primary osteoarthritis of knee; I50.9 Heart failure, unspecified; I48.91 Unspecified atrial fibrillation; M06.9 Rheumatoid arthritis, unspecified; J44.9 Chronic obstructive pulmonary disease, unspecified; Z79.01 Long term (current) use of anticoagulants; X58.XXXA Exposure to other specified factors, initial encounter; Y93.89 Activity, other specified; Y92.89 Other specified places as the place of occurrence of the external cause; Y99.8 Other external cause status

== ENCOUNTER → 2018-10-05 | Outpatient (CLI) | payer OTHER ==
[~2018-10-05] VITALS: Ht 160 cm; Wt 98.4 kg
--- NOTE | ~2018-10-05 | HPC ---
[facility] [address] [place] [address] PAIN MANAGEMENT CONSULTATION Name: DAVID VINCENT Room #: REG MICHAEL Crawford#: [id number] Admission: 10/05/18 Attend Phys: Hamida Nava Discharge: Date of : 50 Report #: [id number] THIS REPORT FOR: //name// CC: Hamida Nava Cole Elsa DATE OF SERVICE: 10/05/2018 CHIEF COMPLAINT: Neuropathic pain, right upper extremity, status post brachial plexus avulsion injury. HISTORY OF PRESENT ILLNESS: This is a very pleasant 68-year-old female who returns to the pain clinic today for followup for her medication refills. She had a right brachial plexus avulsion injury and has had ongoing right arm neuropathic pain since she tells me that she is also having right knee pain today. The patient rates her pain score of 6/7 and mostly a throbbing, piercing feeling in her right upper arm. At last visit, we tried to have her decrease her methadone from 4 pills a day to 3 pills a day because the patient thought that maybe she was taking only 3 most days. The patient returns today saying that she realized she was taking 4 every day and thinks that best controls her pain. We also offered her a trial of her Voltaren gel and she tells us that did not help any knee pain subside, so she has stopped taking that. The patient denies any constipation or daytime sleepiness. She thinks the medications are helpful and would like a refill today of her methadone. CURRENT ALLERGIES: TO MORPHINE. CURRENT MEDICATIONS: Diclofenac gel; methadone 10 mg 1 in the morning, 1 at noon and 2 at night; gabapentin 300 mg 3 in the morning, 2 at midday and 3 at night; oxcarbazepine 300 mg 3 times a day; Coumadin 2.5 mg 2 tablets on Friday and 1 the rest of the week; Zoloft 50 mg a day; potassium 40 mEq; Lasix 40 mg daily; amlodipine 10 mg daily; Lipitor 10 mg twice a day; Tenormin 50 mg twice a day; methotrexate 20 mg weekly; Advair daily and folic acid 1 mg a day. PQRS: She has osteoarthritis in her knees, right wrist and hand and rheumatoid arthritis in her lower extremities. Height 5 feet 3 inches, weight 217, BMI is 38.4. Vital signs: Blood pressure 136/54, pulse is 80, respirations 16, oxygen sat is 98. Pain score is 6/10. Fall risk, she denies dizziness, does not need help walking or standing and has not fallen in the last 3 months. The patient is currently taking Coumadin and does take antihypertensive medicines. She has opioid therapy greater than 6 weeks, therefore, an opioid signed contract is on the chart. Her risk assessment tool is low. Her functional assessment is . The patient denies any recreational drug use. She is a former smoker and does not drink alcohol. We did check the prescription monitoring system and the patient is feeling appropriately with her medications. She tells me she keeps them safeguarded at all times. [address] [address] PAIN MANAGEMENT CONSULTATION Name: DAVID VINCENT Room #: PB Crawford#: [id number] Admission: 10/05/18 Attend Phys: Hamida Nava Discharge: Date of : 50 Report #: [id number] PHYSICAL EXAMINATION: GENERAL: The patient is a well-developed white female. She is wearing 2 liters of oxygen on nasal cannula. Currently, she is alert and orientated. Her affect is appropriate. Her speech is fluent. HEENT: Normocephalic, atraumatic. Extraocular eye muscles are intact. Mucous membranes are moist. Hearing is within normal limits. NECK: No JVD or adenopathy present. EXTREMITIES: The patient currently moves all of her extremities. She does have limited movement in her right arm, does guard it at times. Does complain of some right wrist pain. Some allodynia is present throughout her right arm. The patient complains of right knee pain, which is tender to the touch. We reviewed the fact that opiate medications are being used to provide analgesia adequate to support activities of daily living, not attempting to achieve a specific pain score on the 0-10 Visual Analog Scale. The current opiate medications are providing sufficient analgesia to allow the patient to participate in activities of daily living. The patient is not exhibiting any aberrant behavior suggestive of drug diversion. The patient is not having any adverse reactions to medications. The patient is not suffering from daytime somnolence or mental acuity changes. The patient is managing opiate-induced constipation with appropriate vddk-dyk-pfvnkut agents and dietary considerations. The patient was counseled on concern for caution with operating a motor vehicle while using opiate medications. A physical exam was performed and the patient's functional status was evaluated. All patients with back pain were advised against the bed rest greater than 4 days and were advised to return to normal activities. Pain score assessment was noted and the treatment plan was reviewed with the patient. All current medications, both prescribed and OTC were reviewed and reconciled on the electronic medical record. Tobacco screening was accomplished and smoking cessation was advised when indicated. BMI was noted and diet/exercise modification was recommended for all patients following outside normal parameters. I reviewed with the patient today their responsibilities to safeguard prescription medications, reviewed their responsibility to utilize medications only as prescribed by the physician. They are to seek and receive pain medications only from 1 physician group ([facility]). They are to use 1 pharmacy and keep the clinic informed if they change pharmacies. Their responsibilities include making followup visits in a timely fashion and to avoid abrupt discontinuation of medication usage. Their responsibilities further include bringing their medications (bottles from the pharmacy with residual pills) to the visit for possible confirmation of pill counts and the patient understands it is their responsibility to submit to random drug screens to ensure both that the medications prescribed are present, and that no other [address] [address] PAIN MANAGEMENT CONSULTATION Name: DAVID VINCENT Room #: REG [facility].#: [id number] Admission: 10/05/18 Attend Phys: Hamida Nava Discharge: Date of : 50 Report #: [id number] controlled substances are present. All prescriptions provided today were generated electronically. PLAN: 1. The patient to returns to the pain clinic today. We discussed treatment options. The patient had attempted to decrease her methadone use from 4 tablets to 3 tablets at least some of the time. The patient tells me that she was unable to do that. The patient tells me she takes 4 pills a day, almost every day and find that this has been very beneficial for helping her neuropathic pain. It was decided then that we will keep her at 40 mg of methadone daily, which puts her at a high level according to the CDC guidelines, but the patient has been controlled and having good results on this current regime for quite a while. The patient understands that by the clinic's standard, she will be seen monthly for her opioid medications. She is agreeable with this plan of care. 2. The patient did not find that Voltaren was beneficial, so therefore we will not be renewing that for her right knee pain. She tells me that she is planning on having her knee replaced by Dr. Fernández at [facility], hopefully in the spring. The patient is not wanting to do it in the winter time to get out for therapy when it will be icy. 3. We had talked about coconut oil for the patient's flaky hand and arm. The patient has been using that some and there has been a decrease in the skin flaking off the dryness associated with it. She does have allodynia on her right arm. 4. Appointment made for the patient in 1 month for a refill of her medications. Care given today in collaboration with Dr. Mu Muniz. <ELECTRONICALLY SIGNED> By: Hamida Nava 10/06/18 0715 [id number] Hamida Nava /rahul
[2018-10-05 13:08] VITALS: BP 136/54
== END ==
LOC: PAIN 02:03
DX: M79.621 Pain in right upper arm (principal); G62.9 Polyneuropathy, unspecified; M25.531 Pain in right wrist; Z79.899 Other long term (current) drug therapy

== ENCOUNTER → 2018-11-05 | Outpatient (CLI) | payer OTHER ==
[~2018-11-05] VITALS: Ht 160 cm; Wt 99.8 kg
[2018-11-05 11:20] VITALS: BP 155/76
--- NOTE | 2018-11-05 11:23 | NUR ---
Pain Clinic Assessment: 1. History of Osteoarthritis: VANGIE KNEES RIGHT WRIST HANDS History of Rheumatoid Arthritis: Left Lower Extremity Right Lower Extremity 2. Height: 5 ft. 3 in. 160.0 cm. Weight: 220.0 lb. oz. 99.792 kg. Patient's BMI: 39.0 3. Vital Signs: BP: 155/76 Pulse: 73 Resp: 22 Temp: 02 Sat: 93 ECG Mon: 4. Pain Intensity: 7 5. Fall Risk: Dizziness: Y Needs help standing or walking: Y Fallen in the last 3 months: N Fall risk comments: USES CANE SOMETIMES- NOT TODAY 6. Patient on Blood Thinner: WARFARIN 7. History of Hypertension: Y 8. Opioid Therapy greater than 6 weeks: Y Opiate Contract Signed: 05/02/16 9. Risk Assessment Tool Provided: LOW RISK 0/3 10. Functional Assessment Tool: 11. Recreational Drug Use: Never Drug Type: Tobacco Use: Former Smoker Tobacco Type: Amount or Packs/day: How Many Years: Alcohol Use: No Frequency: Quant:
--- NOTE | 2018-11-10 07:56 | HPC ---
[facility] [address] [email or web address] [address] PAIN MANAGEMENT CONSULTATION Name: DAVID VINCENT Room #: REG Renea Koenig.#: [id number] Admission: 11/05/18 Attend Phys: Hamida Nava Discharge: Date of : 50 Report #: [id number] THIS REPORT FOR: //name// CC: Hamida Nava Colecole Hunter DATE OF SERVICE: 11/05/2018 CHIEF COMPLAINT: Neuropathic pain, right upper extremity, status post brachial plexus avulsion injury. HISTORY OF PRESENT ILLNESS: This is a very pleasant 68-year-old female who returns to the pain clinic today for medication refills. She had a right brachial plexus avulsion injury and has ongoing right arm neuropathic pain since. She also complains of some shoulder pain today. Pain score today is 7/10. She thinks most of her pain may be arthritic related and not all arm pain today due to the weather and recent changes that we have been having. She tells me that her medication is very helpful in controlling her pain. Also, holding her arm at chest level does help. She said it is worse with movement and hanging her arm down. She denies any constipation today. She tells me that it is controlled with some medication and diet. She does not have any daytime sleepiness. She tells me she does not need the Voltaren gel refilled today. She has been using that just as needed. She just needs a refill of her methadone today. CURRENT ALLERGIES: MORPHINE. CURRENT LIST OF MEDICATION: Methadone 10 mg 2 in the morning, 1 midday and 1 at night. Gabapentin 300 mg capsules, the patient takes 3 tablets in a.m., 2 tablets noon, 3 at night. Oxcarbazepine is 300 mg 3 times a day. Coumadin is 2.5 mg daily, Colace as needed, Zoloft 50 mg daily, albuterol inhaler as needed. Potassium is 40 mEq daily. Lasix 40 mg twice a day, amlodipine 10 mg daily, Lipitor 10 mg twice a day, atenolol 50 mg twice a day. Methotrexate weekly on Friday. Advair inhaler, folic acid and oxygen therapy. PQRS TODAY: 1. The patient has osteoarthritis in her bilateral knees, right wrist and hand. History of rheumatoid arthritis in her lower extremities. 2. Height is 5 feet 3 inches, weight is 220, BMI is 39. 3. Vital signs: Blood pressure 155/76, pulse is 73, respirations 22, oxygen sat is 93. 4. Pain score 7/10. 5. Fall risk. She complains of some dizziness, does not need help walking or standing and has not fallen in the last 3 months. She does use a cane at times. 6. She is on Coumadin therapy and does take antihypertensive medications. 7. Opioid therapies is greater than 6 weeks, therefore, an opioid signed [address] [address] PAIN MANAGEMENT CONSULTATION Name: DAVID VINCENT Room #: REG [facility] Yvette#: [id number] Admission: 11/05/18 Attend Phys: Hamida Nava Discharge: Date of : 50 Report #: [id number] contract is on the chart. Risk assessment tool is low. Her functional assessment is 70. 8. Recreational drug use. She denies. She is a former smoker and does not drink alcohol. We did check the prescription monitoring system. The patient is filling appropriately for her medications. She is on time for her refills today. We are obtaining a drug screen on her since it has been a year with the last it was done. The patient tells me that she does safeguard her medications. PHYSICAL EXAMINATION GENERAL: The patient is a well-developed, well hydrated white female. She is wearing 2 L of nasal cannula. She is alert and orientated. Her affect is appropriate, and her speech is fluent. HEENT: Normocephalic, atraumatic. Extraocular eye muscles are intact. Mucous membranes are moist. Hearing is within normal limits. NECK: No JVD or adenopathy. EXTREMITIES: The patient is able to move all of her extremities. She does have limited movement of her right arm, which she does keep guarded or bent at her chest level at all times. Some allodynia is present throughout her right arm. We reviewed the fact that opiate medications are being used to provide analgesia adequate to support activities of daily living, not attempting to achieve a specific pain score on the 0-10 Visual Analog Scale. The current opiate medications are providing sufficient analgesia to allow the patient to participate in activities of daily living. The patient is not exhibiting any aberrant behavior suggestive of drug diversion. The patient is not having any adverse reactions to medications. The patient is not suffering from daytime somnolence or mental acuity changes. The patient is managing opiate-induced constipation with appropriate oazd-civ-paqwwgo agents and dietary considerations. The patient was counseled on concern for caution with operating a motor vehicle while using opiate medications. A physical exam was performed and the patient's functional status was evaluated. All patients with back pain were advised against the bed rest greater than 4 days and were advised to return to normal activities. Pain score assessment was noted and the treatment plan was reviewed with the patient. All current medications, both prescribed and OTC were reviewed and reconciled on the electronic medical record. Tobacco screening was accomplished and smoking cessation was advised when indicated. BMI was noted and diet/exercise modification was recommended for all patients following outside normal parameters. I reviewed with the patient today their responsibilities to safeguard prescription medications, reviewed their responsibility to utilize medications only as prescribed by the physician. They are to seek and receive pain medications only from 1 physician group ( [facility]). They are to use 1 pharmacy and keep the clinic informed if they change pharmacies. Their [facility] [address] [place] [address] PAIN MANAGEMENT CONSULTATION Name: DAVID VINCENT Room #: REG MICHAEL Crawford#: [id number] Admission: 11/05/18 Attend Phys: Hamida Nava Discharge: Date of : 50 Report #: [id number] responsibilities include making followup visits in a timely fashion and to avoid abrupt discontinuation of medication usage. Their responsibilities further include bringing their medications (bottles from the pharmacy with residual pills) to the visit for possible confirmation of pill counts and the patient understands it is their responsibility to submit to random drug screens to ensure both that the medications prescribed are present, and that no other controlled substances are present. All prescriptions provided today were generated electronically. IMPRESSION: 1. 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 2. Hypertension. 3. Chronic pain in her right arm. 4. Hypercholesterolemia. 5. Chronic obstructive pulmonary disease, uses oxygen from 2-4 liters nasal cannula. 6. Rheumatoid arthritis. 7. Osteoarthritis involving both knees. 8. Factor V Leiden Coumadin use. 9. History of atrial fibrillation. 10. Congestive heart failure. PLAN: 1. We discussed treatment options with the patient today. We looked at her medication list and her recent refills. It looks like she only needs to have her methadone filled today. She should have plenty refills of her gabapentin and her oxcarbazepine until at least the next appointment with us. Script was given today of methadone 10 mg for a quantity of 120. The patient takes 1-1. 2. The patient requests to be seen every 2 months due to the weather issues since the winter is difficult to get here. I explained based on her CDC guidelines at her current level of MME, which is 120, it is the practice of the clinic to see those patients on a monthly basis. If we were to decrease her use, then she could go to every 2 months. The patient verbally understands this. She will make an appointment for 1 month. 3. We did check a drug screen on this patient today, had been a year since her last screen done. 4. The patient denies any constipation or daytime sleepiness. 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 [address] [address] PAIN MANAGEMENT CONSULTATION Name: DAVID VINCENT Room #: REG MICHAEL Crawford#: [id number] Admission: 11/05/18 Attend Phys: Hamida Nava Discharge: Date of : 50 Report #: [id number] The patient is seen in collaboration today with Dr. Mu Muniz. <ELECTRONICALLY SIGNED> By: Hamida Nava 11/10/18 [id number] Hamida Nava /nt
== END ==
LOC: PAIN 11-02 07:18
DX: S49.81XA Other specified injuries of right shoulder and upper arm, initial encounter (principal); M17.0 Bilateral primary osteoarthritis of knee; M06.9 Rheumatoid arthritis, unspecified; G89.29 Other chronic pain; I11.0 Hypertensive heart disease with heart failure; I50.9 Heart failure, unspecified; E78.00 Pure hypercholesterolemia, unspecified; J44.9 Chronic obstructive pulmonary disease, unspecified; I48.91 Unspecified atrial fibrillation; Z79.01 Long term (current) use of anticoagulants; Z79.899 Other long term (current) drug therapy; X58.XXXA Exposure to other specified factors, initial encounter; Y93.89 Activity, other specified; Y92.89 Other specified places as the place of occurrence of the external cause; Y99.8 Other external cause status

== ENCOUNTER → 2018-12-11 | Outpatient (CLI) | payer OTHER ==
[~2018-12-11] VITALS: Ht 160 cm; Wt 102.2 kg
[2018-12-11 10:57] VITALS: BP 153/58
--- NOTE | 2018-12-11 11:12 | NUR ---
Pain Clinic Assessment: 1. History of Osteoarthritis: VANGIE KNEES RIGHT WRIST HANDS History of Rheumatoid Arthritis: Left Lower Extremity Right Lower Extremity 2. Height: 5 ft. 3 in. 160.0 cm. Weight: 225.4 lb. oz. 102.241 kg. Patient's BMI: 39.9 3. Vital Signs: BP: 153/58 Pulse: 67 Resp: 14 Temp: 02 Sat: 95 ECG Mon: 4. Pain Intensity: 6 5. Fall Risk: Dizziness: N Needs help standing or walking: N Fallen in the last 3 months: N Fall risk comments: USES CANE SOMETIMES- NOT TODAY 6. Patient on Blood Thinner: WARFARIN 7. History of Hypertension: Y 8. Opioid Therapy greater than 6 weeks: Y Opiate Contract Signed: 05/02/16 9. Risk Assessment Tool Provided: LOW RISK 0/3 10. Functional Assessment Tool: 11. Recreational Drug Use: Never Drug Type: Tobacco Use: Former Smoker Tobacco Type: Amount or Packs/day: How Many Years: Alcohol Use: No Frequency: Quant:
== END ==
LOC: PAIN 12-02 07:06
DX: M25.531 Pain in right wrist (principal); M25.511 Pain in right shoulder; M25.512 Pain in left shoulder; G89.29 Other chronic pain; M79.601 Pain in right arm; Z87.891 Personal history of nicotine dependence; Z79.899 Other long term (current) drug therapy

== ENCOUNTER → 2019-01-08 | Outpatient (CLI) | payer OTHER ==
[~2019-01-08] VITALS: Ht 160 cm; Wt 101.2 kg
[2019-01-08 10:46] VITALS: BP 168/79
--- NOTE | 2019-01-08 10:47 | NUR ---
Pain Clinic Assessment: 1. History of Osteoarthritis: VANGIE KNEES RIGHT WRIST HANDS History of Rheumatoid Arthritis: Left Lower Extremity Right Lower Extremity 2. Height: 5 ft. 3 in. 160.0 cm. Weight: 223.2 lb. oz. 101.243 kg. Patient's BMI: 39.5 3. Vital Signs: BP: 168/79 Pulse: 70 Resp: 16 Temp: 02 Sat: 98 ECG Mon: 4. Pain Intensity: 9 5. Fall Risk: Dizziness: N Needs help standing or walking: N Fallen in the last 3 months: N Fall risk comments: USES CANE SOMETIMES- NOT TODAY 6. Patient on Blood Thinner: WARFARIN 7. History of Hypertension: Y 8. Opioid Therapy greater than 6 weeks: Y Opiate Contract Signed: 05/02/16 9. Risk Assessment Tool Provided: LOW RISK 0/3 10. Functional Assessment Tool: 11. Recreational Drug Use: Never Drug Type: Tobacco Use: Former Smoker Tobacco Type: Amount or Packs/day: How Many Years: Alcohol Use: No Frequency: Quant:
--- NOTE | 2019-01-11 16:10 | HPC ---
[facility] [address] [place] [address] PAIN MANAGEMENT CONSULTATION Name: DAVID VINCENT Room #: REG Renea Koenig.#: [id number] Admission: 01/08/19 ������������������ Attend Phys: Hamida Nava Discharge: ������������������ Date of : 50 Report #: [id number] THIS REPORT FOR: //name// CC: Hamida HARRIS MD DATE OF SERVICE: 01/08/2019 CHIEF COMPLAINT: Neuropathic pain and right upper extremity pain, status post brachial plexus avulsion injury. HISTORY OF PRESENT ILLNESS: This is a 68-year-old female who returns to the pain clinic today for her chronic pain. She suffers from right brachial plexus avulsion injury. She has been on methadone therapy for quite a long time and finds that it is very helpful in relieving or decreasing her pain. Today, she rates her pain score as a 9. She says she has not taken her medication today. She tells me that she takes methadone 2 in the morning, 1 at noon and 1 at bedtime. She also takes gabapentin and oxcarbazepine, which are very helpful in at least controlling her pain. She denies any constipation because she takes Dulcolax daily. She does not have any daytime sleepiness. She tells me she has been very active. Her daughter had moved in with her this past winter and is still living with her, but she tells me that it is going fairly well and no plans for her daughter to move out anytime soon since the living arrangements are working nicely. The patient would like a refill of her medicines that do help her with her right arm and wrist and shoulder pain. ALLERGIES: MORPHINE. MEDICATIONS: Oxcarbazepine 300 mg 3 times a day; methadone 10 mg 2 in the morning, one midday and one night; Coumadin 2.5 mg daily; Colace daily; Zoloft 50 mg daily; albuterol inhaler as needed; potassium 40 mEq daily; Lasix 40 mg b.i.d.; amlodipine 10 mg daily; Lipitor 10 mg b.i.d.; atenolol 50 mg b.i.d.; methotrexate 2.5 mg on Sundays; folic acid daily. PQRS: 1. The patient has a history of osteoarthritis involving her upper and lower extremities. She is being treated for rheumatoid arthritis as well. 2. Height is 5 feet 3 inches, weight is 223, BMI is 39.5. 3. Vital signs: Blood pressure 168/79, pulse is 70, respirations 16, oxygen sat is 98%. 4. Pain score is 9/10. 5. Fall risk. Denies dizziness, does not need help walking or standing, does use a cane at times and has not fallen in the last 3 months. 6. The patient is on Coumadin and does take medicine for hypertension. [address] [address] PAIN MANAGEMENT CONSULTATION Name: DAVID VINCENT Room #: REG CL Yvette#: [id number] Admission: 01/08/19 ������������������ Attend Phys: Hamida Nava Discharge: ������������������ Date of : 50 Report #: [id number] 7. The patient's opiate therapy greater than 6 weeks, therefore, an opioid signed contract is on the chart. Her risk assessment tool is low. Her functional assessment is . 8. Recreational drug use, she denies. She is a former smoker and does not drink alcohol. We did check the prescription monitoring system. The patient is filling appropriately with her medications. We have a recent drug screen on the chart that is appropriate for her medications as well. The patient tells me that she does safeguard her medicines at all times. PHYSICAL EXAMINATION: GENERAL: This is a well-developed, well-nourished, well-hydrated 68-year-old female who appears her stated age. She is wearing oxygen today. Her speech is fluent. Her affect is appropriate. HEENT: Normocephalic, atraumatic. Extraocular eye muscles are intact. Mucous membranes are moist. Again, the nasal cannula is in place. NECK: Without JVD or adenopathy. EXTREMITIES: Moves all extremities. She does have some pain in her right arm and dryness and flakiness in her right hand, but an allodynia of her right arm. Her lower extremity strength judged to be 5/5 in all major muscle groups. ASSESSMENT: 1. Chronic right brachial plexus avulsion, history of neuropathic pain in her right upper extremity. 2. Hypertension. 3. Chronic pain. 4. Hypercholesterolemia. 5. Chronic obstructive pulmonary disease, uses oxygen. 6. Rheumatoid arthritis. 7. Osteoarthritis involving bilateral knees. 8. Factor V Leiden, on Coumadin. 9. History of atrial fibrillation. 10. Congestive heart failure. We reviewed the fact that opiate medications are being used to provide analgesia adequate to support activities of daily living, not attempting to achieve a specific pain score on the 0-10 Visual Analog Scale. The current opiate medications are providing sufficient analgesia to allow the patient to participate in activities of daily living. The patient is not exhibiting any aberrant behavior suggestive of drug diversion. The patient is not having any adverse reactions to medications. The patient is not suffering from daytime somnolence or mental acuity changes. The patient is managing opiate-induced constipation with appropriate gmbc-uyh-uthyrfq agents and dietary considerations. The patient was counseled on concern for caution with operating a motor vehicle while using opiate medications. A physical exam was performed and the patient's functional status was evaluated. [facility] [address] [place] [address] PAIN MANAGEMENT CONSULTATION Name: DAVID VINCENT Room #: REG [facility].#: [id number] Admission: 01/08/19 ������������������ Attend Phys: Hamida Nava Discharge: ������������������ Date of : 50 Report #: [id number] All patients with back pain were advised against the bed rest greater than 4 days and were advised to return to normal activities. Pain score assessment was noted and the treatment plan was reviewed with the patient. All current medications, both prescribed and OTC were reviewed and reconciled on the electronic medical record. Tobacco screening was accomplished and smoking cessation was advised when indicated. BMI was noted and diet/exercise modification was recommended for all patients following outside normal parameters. I reviewed with the patient today their responsibilities to safeguard prescription medications, reviewed their responsibility to utilize medications only as prescribed by the physician. They are to seek and receive pain medications only from 1 physician group ([facility]). They are to use 1 pharmacy and keep the clinic informed if they change pharmacies. Their responsibilities include making followup visits in a timely fashion and to avoid abrupt discontinuation of medication usage. Their responsibilities further include bringing their medications (bottles from the pharmacy with residual pills) to the visit for possible confirmation of pill counts and the patient understands it is their responsibility to submit to random drug screens to ensure both that the medications prescribed are present, and that no other controlled substances are present. All prescriptions provided today were generated electronically. PLAN: 1. We discussed treatment options with the patient today. The patient feels like she is well managed with her current medication regimen. Therefore, we will continue on her methadone 10 mg, #120. We will refill it for today and 4-week. The patient does have some difficulty getting here even though she is on a high MME. We will give her 2 months of medications today and then have her return every 2 months for followup for her medication refills. The patient is agreeable with this plan of care. 2. No scripts for gabapentin or her oxcarbazepine were needed today. She was given 6 months' supply in November of those medications. 3. The patient is seen with Dr. Lai who also collaborated care today. ��������������������������������������������� <ELECTRONICALLY SIGNED> ���������������������������������������� By: Hamida Nava ��������������������������������������������� 01/11/19 1610 [id number] Hamida Nava /rahul
== END ==
LOC: PAIN 01-06 07:16
DX: I10 Essential (primary) hypertension (principal); G89.29 Other chronic pain; E78.00 Pure hypercholesterolemia, unspecified; J44.9 Chronic obstructive pulmonary disease, unspecified; M06.9 Rheumatoid arthritis, unspecified; I50.9 Heart failure, unspecified; I48.91 Unspecified atrial fibrillation; M17.0 Bilateral primary osteoarthritis of knee; Z79.899 Other long term (current) drug therapy

== ENCOUNTER → 2019-03-10 | Outpatient (CLI) | payer OTHER ==
[~2019-03-10] VITALS: Ht 160 cm; Wt 99.8 kg
[2019-03-10 13:52] VITALS: BP 129/63
--- NOTE | 2019-03-10 13:55 | NUR ---
Pain Clinic Assessment: 1. History of Osteoarthritis: VANGIE KNEES RIGHT WRIST HANDS History of Rheumatoid Arthritis: Left Lower Extremity Right Lower Extremity 2. Height: 5 ft. 3 in. 160.0 cm. Weight: 220.0 lb. oz. 99.792 kg. Patient's BMI: 39.0 3. Vital Signs: BP: 129/63 Pulse: 63 Resp: 18 Temp: 02 Sat: 97 ECG Mon: 4. Pain Intensity: 10 5. Fall Risk: Dizziness: N Needs help standing or walking: N Fallen in the last 3 months: N Fall risk comments: USES CANE SOMETIMES- NOT TODAY 6. Patient on Blood Thinner: WARFARIN 7. History of Hypertension: Y 8. Opioid Therapy greater than 6 weeks: Y Opiate Contract Signed: 05/02/16 9. Risk Assessment Tool Provided: LOW RISK 0/3 10. Functional Assessment Tool: 11. Recreational Drug Use: Never Drug Type: Tobacco Use: Former Smoker Tobacco Type: Amount or Packs/day: How Many Years: Alcohol Use: No Frequency: Quant:
--- NOTE | 2019-03-11 08:10 | HPC ---
[facility] [address] [place] [address] PAIN MANAGEMENT CONSULTATION Name: DAVID VINCENT [id number] Admission: 03/10/19 ������������������ Attend Phys: Hamida Nava Discharge: ������������������ Date of : 50 Report #: [id number] THIS REPORT FOR: //name// CC: Hamida Hunter DATE OF SERVICE: 03/10/2019 CHIEF COMPLAINT: Neuropathic pain and right upper extremity pain status post brachial plexus avulsion injury. HISTORY OF PRESENT ILLNESS: This is a pleasant 68-year-old female who returns to the pain clinic today for refill of her medications that she takes for her chronic ongoing pain that is in her right upper extremity as a result of a brachial plexus avulsion injury. She tells me that her right arm has been aching more in the past few days. She even is having some pain in her left shoulder as well, rating her pain score today at 10/10, worse with movement and hanging her arm down. The medications are helpful as well as rest. She denies any problems with constipation or daytime sleepiness. ALLERGIES: MORPHINE. CURRENT LIST OF MEDICATIONS: Methadone 10 mg 2 in the morning, 1 midday 1 at night; oxcarbazepine 300 mg 3 times a day; gabapentin 300 mg 3 tablets in the morning, 2 at noon and 3 at night; Coumadin 2.5 mg daily; Colace, Zoloft, albuterol, potassium, Lasix, amlodipine, atorvastatin, atenolol, methotrexate, Advair and folic acid. PQRS: 1. She has a history of osteoarthritis involving her upper and lower extremities and is being treated for rheumatoid arthritis. 2. Height is 5 feet 3 inches, weight is 220 and BMI is 39. 3. Blood pressure 129/63, pulse is 63, oxygen sat is 97 and respirations 18. 4. Pain score is 10/10. 5. Fall risk. Denies dizziness. Does not need help with walking or standing and has not fallen in the last 3 months. 6. The patient is on Coumadin and does take medicine for hypertension. 7. Opioid therapy is greater than 6 weeks; therefore, an opioid signed contract is on the chart. 8. Risk assessment tool is low. Functional assessment is . 9. Recreational drug use, she denies. She is a former smoker and does not drink alcohol. We did check the prescription monitoring system. The patient is filling appropriately for her medications. She is due for her refill today. She tells me she does safeguard her medications and there [place] [address] PAIN MANAGEMENT CONSULTATION Name: DAVID VINCENT Room #: REG MICHAEL Crawford#: [id number] Admission: 03/10/19 ������������������ Attend Phys: Hamida Nava Discharge: ������������������ Date of : 50 Report #: [id number] that is appropriate for her medications. PHYSICAL EXAMINATION: GENERAL: This is a well-developed, well-nourished, well-hydrated 68-year-old female who appears her stated age. She is wearing oxygen today. Her speech is fluent. Her affect is appropriate. She is placing her pain score at 10/10. HEENT: Normocephalic and atraumatic. Extraocular eye muscles are intact. Mucous membranes are moist. Nasal cannula is in place. NECK: Without JVD or adenopathy. EXTREMITIES: Moves all extremities. She complains of increased pain in her right shoulder and right lower forearm today as well as some pain in her left shoulder. She is able to move her extremities with active range of motion without difficulty though. She does have some allodynia in her right arm. Her lower extremity strength judged to be 5/5 in all major muscle groups and symmetrical and muscle tone. ASSESSMENT: 1. Chronic right brachial plexus avulsion, history of neuropathic pain in her right upper extremity. 2. Rheumatoid arthritis. 3. Osteoarthritis involving her shoulders and knees. 4. Chronic pain. 5. Complex medical management in terms of written opioid agreement. We reviewed the fact that opiate medications are being used to provide analgesia adequate to support activities of daily living, not attempting to achieve a specific pain score on the 0-10 Visual Analog Scale. The current opiate medications are providing sufficient analgesia to allow the patient to participate in activities of daily living. The patient is not exhibiting any aberrant behavior suggestive of drug diversion. The patient is not having any adverse reactions to medications. The patient is not suffering from daytime somnolence or mental acuity changes. The patient is managing opiate-induced constipation with appropriate ovgu-iif-fuqbngf agents and dietary considerations. The patient was counseled on concern for caution with operating a motor vehicle while using opiate medications. A physical exam was performed and the patient's functional status was evaluated. All patients with back pain were advised against the bed rest greater than 4 days and were advised to return to normal activities. Pain score assessment was noted and the treatment plan was reviewed with the patient. All current medications, both prescribed and OTC were reviewed and reconciled on the electronic medical record. Tobacco screening was accomplished and smoking cessation was advised when indicated. BMI was noted and diet/exercise modification was recommended for all patients following outside normal parameters. [address] [address] PAIN MANAGEMENT CONSULTATION Name: DAVID VINCENT Room #: REG MICHAEL Crawford#: [id number] Admission: 03/10/19 ������������������ Attend Phys: Hamida Nava Discharge: ������������������ Date of : 50 Report #: [id number] I reviewed with the patient today their responsibilities to safeguard prescription medications, reviewed their responsibility to utilize medications only as prescribed by the physician. They are to seek and receive pain medications only from 1 physician group ( [facility]). They are to use 1 pharmacy and keep the clinic informed if they change pharmacies. Their responsibilities include making followup visits in a timely fashion and to avoid abrupt discontinuation of medication usage. Their responsibilities further include bringing their medications (bottles from the pharmacy with residual pills) to the visit for possible confirmation of pill counts and the patient understands it is their responsibility to submit to random drug screens to ensure both that the medications prescribed are present, and that no other controlled substances are present. All prescriptions provided today were generated electronically. PLAN: 1. We discussed treatment options with the patient today. The patient finds her medications very helpful, though complaining of some increased shoulder pain today. We discussed the use of her diclofenac gel that she has at home to use on her shoulder joints. The patient will try that since she has been noticing some significant stiffness and then the last few days. 2. Scripts given for her methadone 10 mg 2 in the morning, 1 noon, 1 at night, quantity 120 for release today and 4 weeks. 3. The patient does not need any refills at this time of her gabapentin and oxcarbazepine. 4. The patient was having some issues with her oxygen cannula today. We worked with that for quite a while and did send her with one of our oxygen tanks to her next doctor's appointment for her cardiology visit. 5. She recently also had cataract surgery and is wearing dark glasses because it is very bright for her new eyes, but she tells me that she feels like she can see better since her cataract surgery. 6. Dr. Lai did see the patient and collaborated care today. The patient will make a followup appointment in 2 months. ��������������������������������������������� <ELECTRONICALLY SIGNED> ���������������������������������������� By: Hamida Nava ��������������������������������������������� 03/11/19 0810 [id number] Hamida Nava /rahul
== END ==
LOC: PAIN 07:07
DX: M06.9 Rheumatoid arthritis, unspecified (principal); G89.29 Other chronic pain; M19.012 Primary osteoarthritis, left shoulder; M19.011 Primary osteoarthritis, right shoulder; M17.0 Bilateral primary osteoarthritis of knee; Z79.899 Other long term (current) drug therapy

== ENCOUNTER → 2019-04-28 | Outpatient (CLI) | payer OTHER ==
[~2019-04-28] VITALS: Ht 160 cm; Wt 102.8 kg
--- NOTE | ~2019-04-28 | HPC ---
[facility] [address] [place] [address] PAIN MANAGEMENT CONSULTATION Name: DAVID VINCENT Room #: REG [facility] Crawford#: [id number] Admission: 04/28/19 ������������������ Attend Phys: Asya Lai MD Discharge: ������������������ Date of : 50 Report #: [id number] THIS REPORT FOR: //name// CC: Cole Lai DATE OF SERVICE: 04/28/2019 CHIEF COMPLAINT: Here for medication management. FOLLOWUP HISTORY: The patient is a 69-year-old female who has been followed in the pain clinic. As you may recall, she has chronic brachial plexus pain. She suffered a right brachial avulsion, brachial plexus avulsion injury. She has been treated for this with medications. Because of the neuropathic pain, she continues to need treatment. She has some pain in her right knee as well as the left knee. She states that her pain is worse in the right wrist area. Has some right upper arm discomfort as well as some problems with her shoulder. She rates her pain as an 8-9. It is exacerbated with movement as well as when her arm is "hanging down." Notes that the pain improves with rest. Her medications are beneficial, also notes that holding her arm close to her chest can be helpful. As you recall, her injury occurred about 9 years ago. She has had multiple surgeries. She is being treated for rheumatoid arthritis. MEDICATION LIST: Methadone 10 mg 2 tablets in the morning, one midday, 1 at night, oxcarbazepine 300 mg t.i.d., gabapentin 300 mg 3 tablets in the morning and 2 tablets at noon and 3 tablets at night, Coumadin 2.5 mg, Colace, Zoloft, albuterol, potassium, Lasix, amlodipine, atorvastatin, atenolol, methotrexate, Advair, folic acid. PAIN CLINIC ASSESSMENT/PQRS: 1. The patient has a history of osteoarthritis involving her upper extremities and is being treated for rheumatoid arthritis. 2. Height 5 feet 3 inches, weight 226 pounds, BMI is 40. 3. Vital Signs: Blood pressure 166/67, pulse 68, respiratory rate 16, room air saturation 94%. 4. Pain intensity 8-9/10. 5. Fall history: The patient has not fallen in the last 3 months. 6. Blood thinner. The patient is not on a blood thinning medication. The patient uses a cane on occasion to ambulate. She is not using it today. 7. Hypertension. The patient is being treated for hypertension. 8. Opioids greater than 6 weeks. The patient receives her medication from one source, the pain clinic. 9. Risk assessment tool, low for opioid use . 10. Functional assessment tool . 11. Recreational drug use. The patient denies. 12. Tobacco: The patient is a former tobacco smoker. [address] [address] PAIN MANAGEMENT CONSULTATION Name: DAVID VINCENT Room #: REG [facility] Yvette#: [id number] Admission: 04/28/19 ������������������ Attend Phys: Asya Lai MD Discharge: ������������������ Date of : 50 Report #: [id number] 13. Alcohol: The patient denies use of alcoholic beverages. PHYSICAL EXAMINATION: GENERAL: The patient is a well-developed, well-nourished white female. Appears her stated age. She is alert and oriented x3. Her affect is appropriate. Speech is fluent. HEENT: Normocephalic, atraumatic. Extraocular eye muscles intact. The patient is wearing oxygen. NECK: Without adenopathy or JVD. EXTREMITIES: Moves all extremities. The patient has increased pain and discomfort in her right shoulder and right forearm. She is able to move her extremities with active range of motion without significant difficulty. Complains of some allodynia in her arm. Lower extremity muscle strength is judged to be 5/5 for the major muscle groups in the lower extremity. Muscle tone remains normal. IMPRESSION: 1. 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 2. Rheumatoid arthritis. 3. Osteoarthritis involving her shoulders and knees. 4. Chronic pain. 5. Complex medical management in terms of written opioid agreement. RECOMMENDATIONS: We discussed treatment options with the patient. At this juncture, we will continue with her medications. She feels her medications are working reasonably well. She does not have any problems with them. We have discussed the problems with opioid medications, which could be development of addiction as well as tolerance. The patient feels her medications are working reasonably well. She keeps them in a guarded area. She is aware that opioid medications has been problematic in the media. She keeps her medications in a guarded area and has requested that we continue with her medications. We will provide a script with Neurontin 300 mg tablets, 3 tablets in the morning and 2 tablets at noon and 3 tablets at bedtime. Quantity 240 has been distributed. The patient will also continue with oxcarbazepine 300 mg 3-month supply, 270 tablets 1 p.o. t.i.d. She will also continue with methadone, 2 tablets in the morning, 1 at noon and 1 tablet at bedtime of 10 mg. We would like to thank you for letting us participate in her care. We hope she continues to improve. ��������������������������������������������� ���������������������������������������� By: ��������������������������������������������� [id number] Asya Lai MD /rahul
[2019-04-28 13:06] VITALS: BP 166/67
--- NOTE | 2019-04-28 13:09 | NUR ---
Pain Clinic Assessment: 1. History of Osteoarthritis: VANGIE KNEES RIGHT WRIST HANDS History of Rheumatoid Arthritis: Left Lower Extremity Right Lower Extremity 2. Height: 5 ft. 3 in. 160.0 cm. Weight: 226.6 lb. oz. 102.785 kg. Patient's BMI: 40.2 3. Vital Signs: BP: 166/67 Pulse: 68 Resp: 16 Temp: 02 Sat: 94 ECG Mon: 4. Pain Intensity: 8-9 5. Fall Risk: Dizziness: N Needs help standing or walking: N Fallen in the last 3 months: N Fall risk comments: USES CANE SOMETIMES- NOT TODAY 6. Patient on Blood Thinner: WARFARIN 7. History of Hypertension: Y 8. Opioid Therapy greater than 6 weeks: Y Opiate Contract Signed: 05/02/16 9. Risk Assessment Tool Provided: LOW RISK 0/3 10. Functional Assessment Tool: 11. Recreational Drug Use: Never Drug Type: Tobacco Use: Former Smoker Tobacco Type: Amount or Packs/day: How Many Years: Alcohol Use: No Frequency: Quant:
== END ==
LOC: PAIN 07:04
DX: M17.0 Bilateral primary osteoarthritis of knee (principal); M19.011 Primary osteoarthritis, right shoulder; M19.012 Primary osteoarthritis, left shoulder; G89.29 Other chronic pain; G62.9 Polyneuropathy, unspecified; M06.9 Rheumatoid arthritis, unspecified; Z79.899 Other long term (current) drug therapy; Z79.891 Long term (current) use of opiate analgesic

== ENCOUNTER → 2019-07-07 | Outpatient (CLI) | payer OTHER ==
[~2019-07-07] VITALS: Ht 160 cm; Wt 104.1 kg
[2019-07-07 10:53] VITALS: BP 145/71
--- NOTE | 2019-07-07 11:09 | NUR ---
Pain Clinic Assessment: 1. History of Osteoarthritis: VANGIE KNEES RIGHT WRIST HANDS History of Rheumatoid Arthritis: Left Lower Extremity Right Lower Extremity 2. Height: 5 ft. 3 in. 160.0 cm. Weight: 229.4 lb. oz. 104.055 kg. Patient's BMI: 40.6 3. Vital Signs: BP: 145/71 Pulse: 65 Resp: 14 Temp: 02 Sat: 95 ECG Mon: 4. Pain Intensity: 9 5. Fall Risk: Dizziness: N Needs help standing or walking: N Fallen in the last 3 months: Y Fall risk comments: USES CANE SOMETIMES- NOT TODAY 6. Patient on Blood Thinner: WARFARIN 7. History of Hypertension: Y 8. Opioid Therapy greater than 6 weeks: Y Opiate Contract Signed: 05/02/16 9. Risk Assessment Tool Provided: LOW RISK 0/3 10. Functional Assessment Tool: 11. Recreational Drug Use: Never Drug Type: Tobacco Use: Former Smoker Tobacco Type: Amount or Packs/day: How Many Years: Alcohol Use: No Frequency: Quant:
--- NOTE | 2019-07-13 09:00 | HPC ---
[facility] [address] [place] [address] PAIN MANAGEMENT CONSULTATION Name: DAVID VINCENT Room #: REG [facility] Yvette#: [id number] Admission: 07/07/19 ������������������ Attend Phys: Hamida Nava Discharge: ������������������ Date of : 50 Report #: [id number] THIS REPORT FOR: //name// CC: Hamida Nava Cole Hunter DATE OF SERVICE: 07/07/2019 CHIEF COMPLAINT: Chronic brachial plexus pain in her right upper extremity, neuropathic pain. HISTORY OF PRESENT ILLNESS: This is a 69-year-old female who returns to the Pain Clinic today for her medications that we use to help treat her brachial plexus pain as a result of a right brachial avulsion injury. She has neuropathic pain and needs continued treatment for this in her right upper extremity. Today, she is also complaining of some left knee pain from her recent fall. Her pain score is 9/10. It is an aching, sharp, shooting pain that the medications do usually help, but that recently they have not been as beneficial as normal. The patient today would like a refill of her methadone. CURRENT ALLERGIES: MORPHINE. CURRENT LIST OF MEDICATIONS: Trileptal 300 mg 3 times a day; methadone 10 mg tablets 20 in the morning, 10 midday, 10 at bedtime; gabapentin 900 mg in the morning, 600 at noon, 900 at night; Coumadin, varying doses; Colace; Zoloft; potassium; Lasix; amlodipine; atorvastatin; atenolol; methotrexate; and folic acid. PQRS: 1. She has a history of osteoarthritis in her upper extremities and also being treated for rheumatoid arthritis in her lower extremities. 2. Height is 5 feet 3 inches, weight is 229, BMI is 40. 3. Vital signs: Blood pressure 145/71, pulse is 65, respirations 14, oxygen sat is 95. 4. Pain score is 9/10. 5. Denies dizziness; does not need help walking or standing, but has fallen in the last 3 months. 6. She is on warfarin as well as medicines for hypertension. 7. Opioid therapy is greater than 6 weeks; therefore, an opioid signed contract is on the chart. Risk assessment is low. Functional assessment is 21. 8. Recreational drug use, she denies. She is a former smoker and does not drink alcohol. According to the prescription monitoring system, the patient is filling appropriately for her medications and is due for those later this week. There is a drug screen on the chart that is appropriate for her medications as well. [address] [address] PAIN MANAGEMENT CONSULTATION Name: DAVID VINCENT Room #: REG [facility] Yvette#: [id number] Admission: 07/07/19 ������������������ Attend Phys: Hamida Nava Discharge: ������������������ Date of : 50 Report #: [id number] PHYSICAL EXAMINATION: GENERAL: This is a well-developed, well-nourished white female, who appears her stated age, placing her current pain score at 9/10. HEENT: Normocephalic, atraumatic. Extraocular eye muscles are intact. The patient is wearing oxygen at 3 liters nasal cannula in her nares. Slight facial bruising noted in various stages of healing. NECK: Without adenopathy or JVD. EXTREMITIES: Moves all extremities. She has increased pain in her right shoulder and right arm, but is able to move this without difficulty. She has some allodynia also on her right upper extremities. Complaining of left knee pain from recent fall. She has 2+ edema in her left lower extremity with no edema present in her right. Lower extremity strength judged to be 5/5 in all major muscle groups. IMPRESSION: 1. Chronic right brachial plexus avulsion with history of neuropathic pain in her right upper extremity. 2. Rheumatoid arthritis. 3. Osteoarthritis involving her shoulders and knees. 4. Chronic pain. 5. Complex medical management under terms of written opioid agreement. 6. On anticoagulation therapy. We reviewed the fact that opiate medications are being used to provide analgesia adequate to support activities of daily living, not attempting to achieve a specific pain score on the 0-10 Visual Analog Scale. The current opiate medications are providing sufficient analgesia to allow the patient to participate in activities of daily living. The patient is not exhibiting any aberrant behavior suggestive of drug diversion. The patient is not having any adverse reactions to medications. The patient is not suffering from daytime somnolence or mental acuity changes. The patient is managing opiate-induced constipation with appropriate tdbk-mnd-qyulnjj agents and dietary considerations. The patient was counseled on concern for caution with operating a motor vehicle while using opiate medications. A physical exam was performed and the patient's functional status was evaluated. All patients with back pain were advised against the bed rest greater than 4 days and were advised to return to normal activities. Pain score assessment was noted and the treatment plan was reviewed with the patient. All current medications, both prescribed and OTC were reviewed and reconciled on the electronic medical record. Tobacco screening was accomplished and smoking cessation was advised when indicated. BMI was noted and diet/exercise modification was recommended for all patients following outside normal parameters. [address] [address] PAIN MANAGEMENT CONSULTATION Name: DAVID VINCENT Room #: REG MICHAEL Crawford#: [id number] Admission: 07/07/19 ������������������ Attend Phys: Hamida Nava Discharge: ������������������ Date of : 50 Report #: [id number] I reviewed with the patient today their responsibilities to safeguard prescription medications, reviewed their responsibility to utilize medications only as prescribed by the physician. They are to seek and receive pain medications only from 1 physician group ( [facility]). They are to use 1 pharmacy and keep the clinic informed if they change pharmacies. Their responsibilities include making followup visits in a timely fashion and to avoid abrupt discontinuation of medication usage. Their responsibilities further include bringing their medications (bottles from the pharmacy with residual pills) to the visit for possible confirmation of pill counts and the patient understands it is their responsibility to submit to random drug screens to ensure both that the medications prescribed are present, and that no other controlled substances are present. All prescriptions provided today were generated electronically. PLAN: 1. We discussed treatment options with the patient today. The patient tells me that she had recently fallen, landed on her face and her left knee, did see Dr. Fernández. No fractures to her knee or face. They did encourage her to wear a compression hose due to some edema in her left lower extremity. I did examine this; she does have 2+ edema today present. Encouraged her to go to the medical supplies place that they recommended or she can order compression hoses on [address]. The patient stated she would go there today on her way to the pharmacy. 2. Scripts given today for methadone 10 mg, #120, 2 in the morning, 1 midday, and 1 at bedtime for today and 4-week release. The patient is not needing her oxcarbazepine or her gabapentin since there is plenty of refills left at the pharmacy. 3. The patient will return in 3 months. The patient seen today in collaboration with Dr. Benoit Lai who did see the patient as well. ��������������������������������������������� <ELECTRONICALLY SIGNED> ���������������������������������������� By: Hamida Nava ��������������������������������������������� 07/13/19 0900 [id number] Hamida Nava /nt
== END ==
LOC: PAIN 07:01
DX: M19.011 Primary osteoarthritis, right shoulder (principal); G89.29 Other chronic pain; M06.9 Rheumatoid arthritis, unspecified; M19.012 Primary osteoarthritis, left shoulder; M17.0 Bilateral primary osteoarthritis of knee; Z88.8 Allergy status to other drugs, medicaments and biological substances; Z79.899 Other long term (current) drug therapy; Z79.891 Long term (current) use of opiate analgesic

== ENCOUNTER 2019-08-14 11:40 | Inpatient (IN) | payer OTHER ==
[2019-08-14] VITALS (21 sets, daily range): BP systolic 131–183; BP diastolic 47–81
[~2019-08-14] VITALS: Ht 170.2 cm; Wt 99.2 kg
--- NOTE | ~2019-08-14 | HC ---
[facility] [place] [address] CONSULTATION Name: DAVID VINCENT Room #: 237-P [facility] IN M.R.#: [id number] Admission: 08/14/19 Attend Phys: Maral Cortes Discharge: Date of : 50 Report #: [id number] THIS REPORT FOR: //name// CC: Cole Badillomy Tobi DATE OF SERVICE: 08/15/2019 REASON FOR CONSULTATION: Antibiotic management. HISTORY OF PRESENT ILLNESS: A 69-year-old white woman, who is admitted through the Emergency Room and diagnosed to have severe pneumonia, requires orotracheal intubation and mechanical ventilation. She is hypertensive and this is being addressed. She has received treatment with Levaquin, Unasyn and of lately she is on cefepime and vancomycin. The patient is sedated. All information gathered from conversation with the patient's daughter that is not a good historian and review of her medical records. The patient appears to have chronic pain syndrome, being addressed by Dr. Lai here in the pain clinic. PAST MEDICAL HISTORY: COPD, on 4 liters oxygen nasal cannula; brachial plexus injury; multiple surgeries; chronic pain; rheumatoid arthritis. Previous episode of pneumonia and ovarian cyst, ovary removed in 2008. Factor V Leiden deficiency, history of atrial fibrillation. Total knee replacement on the left side. DRUG ALLERGIES: MORPHINE, vomiting. MEDICATIONS: The patient on treatment with cefepime and vancomycin dose or change to linezolid 600 mg IV twice daily, Levaquin 750 mg IV daily, meropenem 1 g IV daily. She is on fentanyl p.r.n., famotidine, propofol sedation, ondansetron p.r.n., acetaminophen, p.r.n., glucose and glucagon p.r.n. She is on pressors as needed. SOCIAL HISTORY: See H and P in old records, unable to obtain. FAMILY HISTORY: See H and P, see old records, unable to obtain. REVIEW OF SYSTEMS: Unable to obtain. PHYSICAL EXAMINATION: GENERAL: Overweight woman, sedated in the intensive care unit. VITAL SIGNS: Temperature of 103.8 rectally, pulse 128, respirations 32, BP 143/53 on admission. Currently, her blood pressure is 178/70, temperature 99.2, pulse 75, respirations 24. HEENMT: Pupils reactive. Conjunctivae are normal. Mouth, unable to examine. [facility] [address] [place] [address] CONSULTATION Name: DAVID VINCENT Room #: 237-P [facility] IN M.R.#: [id number] Admission: 08/14/19 Attend Phys: Maral Cortes Discharge: Date of : 50 Report #: [id number] LUNGS: Rhonchi, crackles, mainly on the right side, anterior and posteriorly. HEART: S1, S2. No gallop or murmur. ABDOMEN: Soft, no masses or megaly. PELVIC AND RECTAL: Deferred. EXTREMITIES: No clubbing, cyanosis, warm extremities, surgical scar on left knee from knee replacement. LABORATORY DATA: Sodium 141, potassium 3.9, CO2 of 38, BUN 19, creatinine 0.5, glucose 110, albumin 2.8 g/dL. Lactic acid normal. NT-proBNP elevated at 1337. Protime on admission 59.4, repeated today 25.1. INR 5.8 on admission, 2.4 today, WBCs on admission 11,200, repeated today is 7.4 g/dL. Hemoglobin 11.5 on admission, repeat is 8.4 g/dL today. Platelets are normal at 206,000 on admission, today they dropped to 119,000. No white blood cell count differential available. MRSA screen pending. Arterial blood gases yesterday revealed pH 7.28, pCO2 of 82, pO2 of 176, bicarbonate 38.5. Lactate normal. This is on FiO2 of 100%. Obviously, it could be cut down. Microbiology data is still pending at the time of this dictation. RADIOLOGY EVALUATION: A CT scan of the chest without contrast revealed extensive right-sided pulmonary infiltrates on the anterior lobe superiorly and right lower lobe atelectasis and bronchiectasis. COPD changes noted as well. Cardiomegaly noted. Multiple thyroid nodules noted. Left adrenal adenoma noted. ASSESSMENT: 1. Extensive pneumonia with respiratory failure, on mechanical ventilator in a patient with severe chronic obstructive pulmonary disease, oxygen dependent. 2. Chronic pain syndrome. 3. Coagulation disorder, on chronic warfarin. 4. Rheumatoid arthritis. 5. History of atrial fibrillation. 6. Congestive heart failure. SUGGESTIONS: Recommend urine for legionella and Streptococcus pneumoniae antigen. MRSA screen already ordered. Favor combination of Zyvox 600 mg IV every 12 hours, meropenem 1 g IV every 8 hours and Levaquin 750 mg IV daily. The patient might benefit from steroids and we will order as well. Dr. Cortes, thank you for requesting my suggestions. By: [phone] Tommy Carter MD /nt
--- NOTE | ~2019-08-14 | EMS ---
[address] [address] EMS Patient Care Report Name: DAVID VINCENT Room #: PRE M.Go#: [id number] Admission: Attend Phys: Discharge: Date of : 50 Report #: [id number] THIS REPORT FOR: //name// Report Transmitted: 08/14/2019 11:09 EMS Care Summary [facility] MED-ACT Incident [id number] @ 08/14/2019 10:59 Incident Location [address] [place] [address] Patient DAVID VINCENT Female, 69 Years 1950 Patient Address [address] [place] [address] Patient History Congestive Heart Failure (CHF),Chronic Obstructive Pulmonary Disease (COPD),Diabetes, Patient Allergies No known allergies, Patient Medications Spiriva, Methadone, Atenolol, Gabapentin, Methotrexate, Advair, Chief Complaint altered loc Disposition Transported No Lights/Junction Dispatch Reason Breathing Problem Transported To [facility] Narrative [id number] arrived on scene to find the patient sitting on the floor next to her bed in the care of first responders. Patient's family advised that she has not been acting right for 2 days and now is not responding correctly. They stated that [facility] [address] [place] [address] EMS Patient Care Report Name: DAVID VINCENT Room #: [facility] Yvette#: [id number] Admission: Attend Phys: Discharge: Date of : 50 Report #: [id number] she has not been taking care of herself recently with her diabetes and has had pneumonia multiple times. Patient was incontinent to urine which had a foul smell to it. Patient is normally on oxygen but stated she was having difficulty breathing. Patient was placed on EMS oxygen and LPM increased from 2 to 5. Patient had an improvement but still appeared to have respiratory distress. Patient was places on a NRB @ 15lpm which patient stated she felt better but was still altered and pulling away at the NRB mask. CPAP withheld due to patient not tolerating a mask and had improvement and no complaints of difficulty breathing while on NRB. Initial Vitals @11:25P: 108,SpO2: 86, @11:30P: 107,R: 20,BP: 156/110,Pain: 0/10,GCS: 12,Temp: 98.8F,SpO2: 88,Revised Trauma: 11, @11:09P: 110,R: 20,BP: 154/111,Pain: 0/10,GCS: 13,Glucose: 164,SpO2: 76,Revised Trauma: 12, Assessments @11:07MENTAL:Confused,Person Oriented,Event Oriented,SKIN:HEENT:Head/Face: No Abnormalities,Eyes: No Abnormalities,Neck/Airway: No Abnormalities,LUNG SOUNDS:General: No Abnormalities,Left Upper: No Abnormalities,Right Upper: No Abnormalities,Left Lower: No Abnormalities,Right Lower: No Abnormalities,ABDOMEN:General: No Abnormalities,Left Upper: No Abnormalities,Right Upper: No Abnormalities,Left Lower: No Abnormalities,Right Lower: No Abnormalities,PELVIS//GI:Incontinence,EXTREMITIES:Left Arm: No Abnormalities,Right Arm: No Abnormalities,Left Leg: No Abnormalities,Right Leg: No Abnormalities,PULSE:NEURO:No Abnormalities, Impression Altered Mental Status Procedures @11:07ALS AssessmentResponse: UnchangedSucceeded@11:27Oxygen FlowRate: 15 Device: Non Re-breather Mask (NRB) Response: ImprovedSucceeded@11:08Oxygen FlowRate: 5 Device: Nasal Cannula (NC) Response: ImprovedSucceeded Timeline 10:59,Call Received 10:59,Psap Call 10:59,Dispatched 10:59,En Route 11:04,On Scene 11:06,At Patient 11:07,ALS Assessment,Response: UnchangedSucceeded, 11:08,Oxygen FlowRate: 5 Device: Nasal Cannula (NC) Response: ImprovedSucceeded, 11:09,BP: 154/111 M,PULSE: 110,RR: 20 R,SPO2: 76 Ox,ETCO2: ,B,PAIN: [place] [address] EMS Patient Care Report Name: DAVID VINCENT Room #: PRE M.R.#: [id number] Admission: Attend Phys: Discharge: Date of : 50 Report #: [id number],GCS: 13, 11:24,Depart Scene 11:25,BP: / M,PULSE: 108,RR: R,SPO2: 86 Ox,ETCO2: ,BG: ,PAIN: ,GCS: , 11:27,Oxygen FlowRate: 15 Device: Non Re-breather Mask (NRB) Response: ImprovedSucceeded, 11:30,BP: 156/110 M,PULSE: 107,RR: 20 R,SPO2: 88 Ox,ETCO2: ,BG: ,PAIN: 0,GCS: 12, 11:39,At Destination 11:55,Call Closed Disclaimer v1.1 Copyright 2019 [employer] This EMS Care Summary contains data elements from the applicable legal record (which may be displayed differently). It is designed to provide pertinent information for the following purposes: continuity of care, clinical quality, and state data reporting. The complete legal record is available to ED staff and administrators of the receiving hospital in [employer]'s Patient Tracker. All data is provided "as is."
[2019-08-14 11:56] LABS: BE(vivo) 7.4 mmol/L (-2 to +3); HCO3 36.6 mmol/L (22.0-26.0); PO2 75.1 mmHg (80.0-100.0); sO2 92.6 % (92.0-98.0)
[2019-08-14 11:57] LABS: PCO2 79.3 mmHg (35.0-45.0); pH 7.282 (7.360-7.450)
[2019-08-14 12:01] LABS: HEMATOCRIT 35.3 % (37.0-47.0); HEMOGLOBIN 11.5 gm/dL (12.0-15.0); MCH 31.7 pg (26.0-34.0); MCHC 32.5 g/dL (28.0-37.0); MCV 97.4 fL (80.0-100.0); RBC 3.63 mil/uL (4.20-5.00); RDW 14.2 % (10.5-14.5); WBC 11.2 thou/uL (4.0-11.0)
[2019-08-14 12:11] LABS: ANION GAP 4 mmol/L (7-16); BUN 22 mg/dL (7-18); CALCIUM 8.7 mg/dL (8.5-10.1); CHLORIDE 99 mmol/L (98-107); CO2 37 mmol/L (21-32); CREATININE 0.7 mg/dL (0.6-1.0); GLUCOSE 176 mg/dL (74-106); POTASSIUM 4.3 mmol/L (3.5-5.1); SODIUM 140 mmol/L (136-145)
[2019-08-14 12:13] LABS: PROTIME 59.4 Seconds (9.3-11.4)
[2019-08-14 12:15] LABS: INR 5.8
[2019-08-14 12:20] LABS: TROPONIN-I <0.06 ng/mL (<0.06)
[2019-08-14 13:51] LABS: BE(vivo) 9.5 mmol/L (-2 to +3); HCO3 38.5 mmol/L (22.0-26.0); PO2 176.6 mmHg (80.0-100.0)
[2019-08-14 13:52] LABS: PCO2 82.3 mmHg (35.0-45.0); pH 7.288 (7.360-7.450)
--- NOTE | 2019-08-14 15:07 | NUR ---
PATIENT ARRIVED TO UNIT AT 1447. PATIENT TRANSFERRED BY RT AND EMS. PATIENT SETTLED IN BED.
--- NOTE | 2019-08-14 16:03 | NUR ---
VASCULAR ACCESS TEAM CONSULTED FOR PICC PLACEMENT. PT'S LABS,MEDS,HISTORY AND ORDER REVIEWED. DISCUSSED WITH PT'S SISTER WHO IS A RN AND DAUGHTER BENEFITS AND RISKS ARE HIGHER WITH PICC FOR DVT WITH FACTOR 5 AND PT'S INR IS ELEVATED 5.8 SO INCREASED RISK OF BLEEDING. FAMILY VERBALIZED UNDERSTANDING AND WANTS TO SEE PT AND SPEAK WITH PHYSICIANS PRIOR TO SIGNING CONSENT FOR PICC LINE. JUAN RAJAN NOTIFIED OF FAMILIES CHOICE. 3RD PIV STARTED FOR MEDS
[2019-08-14 18:04] LABS: HCO3 36.9 mmol/L (22.0-26.0); PCO2 63.8 mmHg (35.0-45.0); PO2 177.4 mmHg (80.0-100.0); sO2 99.1 % (92.0-98.0)
[2019-08-14 19:14] LABS: CALCIUM 8.2 mg/dL (8.5-10.1); CREATININE 0.6 mg/dL (0.6-1.0); POTASSIUM 4.2 mmol/L (3.5-5.1)
--- NOTE | 2019-08-14 19:39 | NUR ---
FAMILY AGREEABLE TO PICC LINE CONSENT SIGNED. ZAINA CEPHALIC WAS WIDELY PATENT WITH USG. 5FR TL POWER PICC TRIMMED TO 52CM INSERTED TO 2CM EXTERNAL. SITE IMMEDIATELY BRUISING DUE TO ELLEVATED INR. PRESSURE HELD AT SITE FOR SEVERAL MINUTES. PICC INSERTED PER HOSPITAL P&P, PT TOLERATED WELL. STAT CXR ORDERED
--- NOTE | 2019-08-14 19:50 | NUR ---
PATIENT SETTLED IN UNIT. FAMILY UPDATED ABOUT PLAN OF CARE. IV NURSE DISCUSSED PICC LINE PLACEMENT WITH FAMILY. FAMILY REQUESTING TO SPEAK WITH PHYSICIAN BEFORE MAKING DECSION. FAMILY BROUGHT BACK TO ICU, BY RN. UPDATED ON PLAN OF CARE. FAMILY REQUESTING TO SPEAK WITH PHYSCIAN, FAMILY EDUCATED ABOUT GIVING PRIORITY MEDICATIONS BEFOR CALLING PHYSCIAN. RN ALEXEY INTO ROOM TO HELP RN REPOSITION PATIENT. RN HOLDING RESTRAINTS FOR REPOSITIONING TO PREVENT PAITIENT SELF EXTUBATION. . DPOA (SISTER) PAT BECOMING AGGRESSIVE WITH GBEMISOLA BECAUSE SHE WAS HOLDING THE RESTRAINT. PAT UPSET, WAS EDUCATED ON WHY RESTRAINTS NEEDED TO BE HELD WHEN REPOSITIONING PATIENT. DAUGHTER AND SISTER, DEMANDING TO SPEAK WITH PHYSCIAN. DR. TAVAREZ PAGED AND SPOKE WITH FAMILY ABOUT PLAN OF CARE. PATIENT BECOMMING INCREASINGLY AGITATED AND PROPOFOL TITRATED PER PROTOCOL. RN TO BEDSIDE TO PUT PICC LINE. CONSENT RECIEVED FROM SISTER TRINO VIA PHONE. 2 RNS CONFIRMED. PATIENT AGITATED AND INCREASED PROPOFOL GTT PER PROTOCOL. PPATIENT TOLERATED PROCEDURE WELL. REPORT GIVEN TO TRAUMA NURSE RN.
--- NOTE | 2019-08-14 20:12 | NUR ---
PICC RELEASED FOR IMMEDIATE USE PER PROTOCOL TO DAVID RAJAN. C XR CONFIRMED CAJ
[2019-08-14 21:46] LABS: HEMATOCRIT 29.6 % (37.0-47.0); HEMOGLOBIN 9.6 gm/dL (12.0-15.0); MCH 31.5 pg (26.0-34.0); MCHC 32.4 g/dL (28.0-37.0); MCV 97.3 fL (80.0-100.0); RBC 3.04 mil/uL (4.20-5.00); RDW 14.4 % (10.5-14.5); WBC 7.9 thou/uL (4.0-11.0)
[2019-08-15] VITALS (42 sets, daily range): BP systolic 140–197; BP diastolic 49–108
[2019-08-15 04:43] LABS: HEMATOCRIT 25.5 % (37.0-47.0); HEMOGLOBIN 8.4 gm/dL (12.0-15.0); MCH 31.9 pg (26.0-34.0); MCHC 33.1 g/dL (28.0-37.0); MCV 96.2 fL (80.0-100.0); RBC 2.65 mil/uL (4.20-5.00); RDW 14.3 % (10.5-14.5); WBC 7.4 thou/uL (4.0-11.0)
[2019-08-15 04:53] LABS: PROTIME 25.1 Seconds (9.3-11.4)
[2019-08-15 04:55] LABS: CALCIUM 8.4 mg/dL (8.5-10.1); CREATININE 0.5 mg/dL (0.6-1.0); POTASSIUM 3.9 mmol/L (3.5-5.1)
[2019-08-15 04:58] LABS: INR 2.4
[2019-08-15 05:00] LABS: ALBUMIN 2.8 g/dL (3.4-5.0); TOTAL BILIRUBIN 0.4 mg/dL (<0.1-1.0); TOTAL PROTEIN 5.7 g/dL (6.4-8.2)
--- NOTE | 2019-08-15 06:00 | NUR ---
PT REMAINS INTUBATED AND SEDTED WITH PROPOFOL GTT AT 80 MCG WHEN SEDATION IS OFF PT BECOMES VERY RESTLESS AND COUGHING. ATTEMPT TO PLUG MAKING OPERATOR WEAKLY TO COMMAND RONNIE COOK AT 0345 LOPRESSOR 5 MG IV FOR INCREASED BP OF 189/70 FENTANYL 50 MCG X 2 FOR COMFORT. BATHED. REPOSITIONED. 650 CC UO THIS SHIFT. WULL CONT TO MONITOR
--- NOTE | 2019-08-15 06:00 | NUR ---
PT HAD ONE UNIT OF FFP AT 2345 INR DOWN TO 2.4 THIS AM. WILL CONT TO MONITIOR
[2019-08-15 10:00] LABS: BE(vivo) 11.4 mmol/L (-2 to +3); HCO3 36.8 mmol/L (22.0-26.0); PCO2 54.1 mmHg (35.0-45.0); PO2 144.2 mmHg (80.0-100.0); pH 7.451 (7.360-7.450); sO2 98.9 % (92.0-98.0)
--- NOTE | 2019-08-15 11:46 | EKG ---
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
[2019-08-15 16:05] LABS: % SATURATION 14 % (20-39); IRON 30 ug/dL (50-170); TIBC 222 ug/dL (250-450)
--- NOTE | 2019-08-15 16:46 | NUR ---
ASSESSMENTS AND INTERVENTIONS DOCCUMENTED. PATIENT RESTING QUIETLY DURING SHIFT CHANGE. FAMILY AT BEDSIDE, DR. MOORE EDUCATING DAUGHTER ABOUT BRONCHOSOPY. DAUGHTER EXPRESSING UNDERSTANDING. PATIENT HAD BRONCH, TOLERATED IT WELL. PATIENT HAVING HIGH BP, DR. AYOUB PAGEFreda, NO ANSWER. DR. MOORE IN UNIT AND ORDERS FOR LOPRESSOR RECIEVED. PATIENT GIVEN LOPRESSOR AND NO CHANGE IN BP. PATIENT GOING INTO AN IRREGULAR RHYTHM, DR. ANITRA CALDERÓN. DR. MCFARLANE ORDERED CONSULT TO CARDIOLOGY. LUNGREN ROUNDED AND ORDERS RECIEVED. RN GIVING ORDERED MEDS. DAUGHTER AND AUNT AT BEDSIDE ASKING ABOUT BIOPSY RESULTS. NURSE EDUCATED FAMILY THAT BIOPSY WAS NOT INDICATED AT THIS TIME. DAUGHTER GETTING ANXIOUS ABOUT SITUATION AND REQUESTING TO SPEAK WITH DR. MOORE. DR. MOORE PAGED AND FAMILY EDUCATED ABOUT THE PROCEDURE. MORE FAMILY ARRIVED TO THE BEDSIDE. FAMILY REMINDED THAT PER ICU VISITORS POLICY ON 2 PEOPLE IN THE ROOM AT A TIME. FAMILY AGREED AND NEPHEW AND FRIEND STAYED. NEPHEW EMOTIONAL AND ASKING QUESTIONS ABOUT MEDICATION AND HOW "MORPHINE IS KILLING PATIENT". PATIENT EDUCATED THAT THERE IS NO MORPHINE BEING GIVEN RELATED TO PATIENTS ALLERGY TO IT. NEPHEW, GETTING AGGRESSIVE CONTINUES TO QUESTION MEDICATIONS GIVEN. RN ATTEMPTING TO CALM THE NEPHEW DOWN. NEPHEW BEGINS TO GET VERBALLY ABBUSIVE USING PROFANITY. SAYING " YOU ARE SCREWING UP HER FUCKING HOME MEDICATIONS" PATIENT STANDS UP AND BEHIND HIM WAS AN ALCHOLIC BEVERAGE. RN ASKS NEPHEW TO LEAVE AND REMINDED HIM THAT THERE IS NO ALCOHOL ALLOWED IN THE HOSPITAL. SECURITY NOTIFIED. NEPHEW OUTSIDE IN THE WAITING ROOM, NEPHEW REFERING TO RN "BITCH". ICU DOORS CLOSED. PATIENT RESTING AT THIS TIME. THE PLAN OF CARE IS TO CONINTUE TO MONITOR RESPIRATORY STATUS, TREAT INFECTION AND MONITOR HEART RATE AND RHYTHM.
[2019-08-16] VITALS (28 sets, daily range): BP systolic 114–194; BP diastolic 43–81
--- NOTE | 2019-08-16 06:00 | NUR ---
REMAINS INTUBATED AND SEDATED. SINUS RHYTHM. CARDIZEM GTT OFF AT 0400 HEART RATE DECREASED TO 55. REMAINS HYPERTENSIVE. LOPRESSOR 5 MG IV GIVEN 1 X FOR HTN. 1000 CC UO THIS SHIFT. BATHED . WILL CONT TO MONITOR.
[2019-08-16 08:16] LABS: CALCIUM 8.4 mg/dL (8.5-10.1); CREATININE 0.7 mg/dL (0.6-1.0); POTASSIUM 3.3 mmol/L (3.5-5.1)
[2019-08-16 08:24] LABS: HEMATOCRIT 28.3 % (37.0-47.0); HEMOGLOBIN 9.5 gm/dL (12.0-15.0); MCHC 33.7 g/dL (28.0-37.0); RBC 2.98 mil/uL (4.20-5.00); RDW 14.6 % (10.5-14.5); WBC 6.6 thou/uL (4.0-11.0)
--- NOTE | 2019-08-16 10:19 | NUR ---
Nutrition: Pt NPO x 2 days on vent. Propofol demands are high at present (1029 kcals from lipid). REC consider start Vital HP at 20 mL/hr. Will follow for goal rate.
--- NOTE | 2019-08-16 10:25 | 2DMMODE ---
[facility] [address] [place] [address] 2 D/M-MODE ECHOCARDIOGRAM Name: DAVID VINCENT Room #: 237-P ADM IN .R.#: [id number] Admission: 08/14/19 Attend Phys: Maral Carpenter Discharge: Date of : 50 Report #: [id number] THIS REPORT FOR: //name// APPROVED REPORT Study performed: 08/16/2019 09:00:52 EXAM: Comprehensive 2D, Doppler, and color-flow Echocardiogram Patient Location: ICU Room #: [facility] Status: routine BSA: 2.14 HR: 53 bpm BP: 182/77 mmHg Rhythm: NSR Other Information Study Quality: Adequate Indications Congestive Heart Failure COPD Atrial Fibrillation Hypertension/HDD 2D Dimensions RVDd: 43.67 mm IVSd: 16.42 (7-11mm) LVOT Diam: 18.80 (18-24mm) LVDd: 39.47 mm PWd: 15.89 (7-11mm) LVDs: 25.72 (25-40mm) Aortic Root: 31.44 mm IVC: 27.00 mm Volumes Left Atrial Volume (Systole) Single Plane 4CH: 61.42 mL Single Plane 2CH: 49.05 mL LA ESV Index: 27.00 mL/m2 Aortic Valve AoV Peak Stefano.: 3.28 m/s AO Peak Gr.: 42.91 mmHg LVOT Max P.41 mmHg AO Mean Gr.: 22.05 mmHg LVOT Mean P.40 mmHg AO V2 Mean: 2.17 m/s LVOT Max V: 1.53 m/s AO V2 VTI: 71.48 cm LVOT Mean V: 0.81 m/s KODAK (VTI): 1.18 cm2 LVOT V1 VTI: 30.45 cm [facility] [place] [address] 2 D/M-MODE ECHOCARDIOGRAM Name: MELISADAVID Marcos Room #: [facility] IN .R.#: [id number] Admission: 08/14/19 Attend Phys: Maral Jackson Dec Discharge: Date of : 50 Report #: [id number] Vmax: 1.30 cm2 AI Vmax: 5.19 m/s SV (LVOT): 84.48 mL AI Frederick: 2.25 m/s2 AI PHT: 669.90 ms Mitral Valve E/A Ratio: 0.7 MV Decel. Time: 339.83 ms MV E Max Stefano.: 0.65 m/s MV A Stefano.: 0.95 m/s MV PHT: 98.55 ms IVRT: 133.79 ms Pulmonary Valve PV Peak Stefano.: 1.15 m/s PV Peak Gr.: 5.30 mmHg Pulmonary Vein P Vein S: 0.57 m/s P Vein A: 0.29 m/s P Vein D: 0.38 m/s P Vein A Dur.: 120.0 msec P Vein S/D Ratio: 1.50 Left Ventricle The left ventricle is normal size. There is normal LV segmental wall motion. Moderate concentric left ventricular hypertrophy. The left ventricular systolic function is normal. The left ventricular ejection fraction is within the normal range. LVEF is 60-65%. Mild diastolic dysfunction is present (impaired relaxation pattern). Right Ventricle The right ventricle is normal size. The right ventricular systolic function is normal. Atria The left atrium size is normal. Right atrium is mildly dilated. PICC line vs. Chiari network is noted in the right atrium. Aortic Valve Aortic valve is mildly calcified. Mild to moderate aortic regurgitation. There is mild to moderate valvular aortic stenosis. Calculated aortic valve area is 1.3 cm2 with maximum pressure gradient of 43 mmHg and mean pressure gradient of 22 mmHg. Mitral Valve Mild mitral annular calcification. Trace mitral regurgitation. No evidence of mitral valve stenosis. [facility] [address] [place] [address] 2 D/M-MODE ECHOCARDIOGRAM Name: DAVID VINCENT Room #: 237-P [facility] IN M.R.#: [id number] Admission: 08/14/19 Attend Phys: Maral Carpenter Discharge: Date of : 50 Report #: [id number] Tricuspid Valve The tricuspid valve is normal in structure. There is no tricuspid valve regurgitation noted. Unable to assess PA pressure. Pulmonic Valve Pulmonic valve is not well visualized. Great Vessels The aortic root is normal in size. IVC is dilated. Pericardium There is no pericardial effusion. <Conclusion> The left ventricular systolic function is normal. There is normal LV segmental wall motion. LVEF is 60-65%. Mild diastolic dysfunction Aortic valve is mildly calcified, mild to moderate valvular aortic stenosis and insufficiency Calculated aortic valve area is 1.3 cm2 with maximum pressure gradient of 43 mmHg and mean pressure gradient of 22 mmHg. Mild mitral annular calcification. Trace mitral regurgitation. Unable to assess pulmonary artery pressure. There is no pericardial effusion. <ELECTRONICALLY SIGNED> By: Nhan Lund MD, FACC 08/16/19 1025 1025 1025 Nhan Lund MD, FACC /INF
[2019-08-16 11:19] LABS: HCO3 38.2 mmol/L (22.0-26.0); PCO2 51.6 mmHg (35.0-45.0); PO2 114.2 mmHg (80.0-100.0); pH 7.487 (7.360-7.450); sO2 98.4 % (92.0-98.0)
--- NOTE | 2019-08-16 12:56 | HC ---
[facility] [place] [address] CONSULTATION Name: DAVID VINCENT Room #: 237-P [facility] IN M.R.#: [id number] Admission: 08/14/19 Attend Phys: Maral Cortes Discharge: Date of : 50 Report #: [id number] THIS REPORT FOR: //name// CC: Cole Britton REASON FOR CONSULTATION: Paroxysmal atrial fibrillation. HISTORY OF PRESENT ILLNESS: The patient is a 69-year-old woman with a history of oxygen dependent lung disease, rheumatoid arthritis, factor V Leiden deficiency and paroxysmal atrial fibrillation. She has been followed in our office by Dr. Walt Carter. She now is admitted with severe hypoxemia and multilobar pneumonia requiring intubation. In this setting, all of her medicines have been held including fairly high dose atenolol. She has had paroxysms of atrial fibrillation throughout the day today, although none of these have been sustained or symptomatic. I have been kindly asked to see her in this regard. She is sedated and unable to give any meaningful history, which comes from her family who are present in the room. No prior history of myocardial infarction. Prior stress testing demonstrated no ischemia. PAST MEDICAL HISTORY: Her past history is notable for diastolic heart failure, severe chronic obstructive pulmonary disease, rheumatoid arthritis, hypertension, factor V Leiden deficiency, rheumatoid arthritis, COPD. SOCIAL HISTORY: She is a nonsmoker. FAMILY HISTORY: Unremarkable for premature coronary artery disease. REVIEW OF SYSTEMS: All systems negative except as that noted above. PHYSICAL EXAMINATION: GENERAL: Reveals an elderly woman who is intubated and ventilated. VITAL SIGNS: Blood pressure is 188/95, temperature is 99.4 degrees, 5 feet 7 inches tall and 223 pounds. HEENT: There is neither xanthelasma, subcutaneous xanthomata, oral mucosal or digital cyanosis or kyphoscoliosis present. CHEST: Reveals diminished breath sounds at both bases, especially at the right base. CARDIAC: Regular rate and rhythm with a normal S1 and increased pulmonic closure sound. ABDOMEN: Soft and nontender. EXTREMITIES: With trace edema. Radial pulses are 2+. NEUROLOGIC: She is alert with a nonfocal exam. LABORATORY DATA: Sodium 141, potassium 3.9, creatinine 0.5. ProBNP of 1337, iron saturation of 10. White count 7.4, hemoglobin 8.4, hematocrit 25, platelet [address] [address] CONSULTATION Name: DAVID VINCENT Room #: 237-P ADM IN M.R.#: [id number] Admission: 08/14/19 Attend Phys: Maral Cortes Discharge: Date of : 50 Report #: [id number] count 119. Chest x-ray demonstrates mixed interstitial and alveolar infiltrates in the right upper and right lower lobe. EKG, sinus rhythm with right bundle-branch block. IMPRESSION: 1. Hypoxemic respiratory failure. 2. Multilobar predominantly right-sided pneumonia. 3. Severe oxygen-dependent chronic obstructive pulmonary disease. 4. Paroxysmal atrial fibrillation, not unexpected in this setting. 5. Diastolic heart failure. 6. Rheumatoid arthritis. 7. Hypertension. 8. Sleep apnea. 9. Factor V Leiden deficiency. 10. Severe anemia. RECOMMENDATIONS: 1. Resume atenolol and low dose diuretic. 2. Intravenous Cardizem for sustained dysrhythmia, not adequately suppressed by beta asvhin. 3. Atrial fibrillation, rates may be hard to control in this setting; if this is the case, I would consider antiarrhythmic therapy. 4. Her paroxysmal atrial fibrillation has been longstanding and previously rate controlled on her current regimen. Thank you for asking me to participate in her care. <ELECTRONICALLY SIGNED> By: Nhan Lund MD, FACC 08/16/19 1256 1441 0056 Nhan Lund MD, FACC /nt
--- NOTE | 2019-08-16 15:01 | NUR ---
ON THE VENT, SEDATED AND TITRATING SEDATION DOWN. NO CPAP TRIAL TODAY. HYPERTENSIVE AND PRN ANTIHYPERTENSIVE GIVEN. METHADONE HOME DOSE RESTARTED THIS MORNING. OGT NOTED AND DIETITIAN WILL LOOK INTO TUBEFEEDING RECOMMENDATION. FAMILY AT THE BEDSIDE AND UPDATED FREQUENTLY. SWS CONSULTED REGARDING ADVANCED DIRECTIVES, DAUGHTER STATES DURING PATIENT'S LAST ADMISSION SHE WAS DNR. WE DO NOT HAVE ANYTHING IN RECORD OR IN WRITING STATING THIS. FR. DE LA CRUZ PAGED BY CHAPLAIN PATEL PER FAMILY REQUEST.
--- NOTE | 2019-08-16 16:24 | NUR ---
INITIAL ASSESSMENT: Received consult regarding Advanced Directives. SW reviewed chart and spoke with nursing and attending physician. Pt was admitted from home due to sepsis. Pt is currently intubated and sedated. Pt had a bronch on 08/15 and remains on IV abx. Pt has document on file from October of 2015 that she signed stating she would want to be a full code. Document place on pt's chart. SW met with pt's sister, nephew and turner in at bedside. Introduced role of CLARENCE. Pt has been living with her dtr, Lydia. Pt has a cane, walker and home O2 through [facility]. Pt has used [facility] for home health and has been to [facility] and [facility] in the past. Pt's PCP is Dr. Cole Hunter. Pt's family had questions regarding code status. SW showed family form that pt has signed. Pt's family is unaware if pt has signed any additional form since. Per family, pt does not have a DPOA document in place. Pt's dtr is her next of kin. CLARENCE is following to assist as needed with discharge planning.
--- NOTE | 2019-08-16 17:22 | NUR ---
TUBEFEEDING STARTED AT 20ML/HR
[2019-08-17] VITALS (24 sets, daily range): BP systolic 116–186; BP diastolic 54–82
[2019-08-17 05:27] LABS: HEMATOCRIT 30.7 % (37.0-47.0); HEMOGLOBIN 10.4 gm/dL (12.0-15.0); MCHC 33.8 g/dL (28.0-37.0); MCV 94.5 fL (80.0-100.0); RBC 3.25 mil/uL (4.20-5.00); RDW 14.5 % (10.5-14.5); WBC 9.4 thou/uL (4.0-11.0)
[2019-08-17 05:40] LABS: CALCIUM 8.6 mg/dL (8.5-10.1); CREATININE 0.6 mg/dL (0.6-1.0); POTASSIUM 3.4 mmol/L (3.5-5.1)
--- NOTE | 2019-08-17 08:31 | EKG ---
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
--- NOTE | 2019-08-17 08:31 | EKG ---
[address] [place] [address] ELECTROCARDIOGRAM REPORT Name: DAVID VINCENT Room #: 237-P ADM IN M.R.#: [id number] Admission: 08/14/19 Attend Phys: Maral Cortes Discharge: Date of : 50 Report #: [id number] THIS REPORT FOR: //name// [facility] Test Date: 2019-08-15 Test Time: 15:11:56 Pat Name: DAVID VINCENT Department: Room: 237 P Gender: F Concierge Manager: Bob ADKINS : 1950 Requested By: Nhan Lund Order Number: [id number] MD: Walt Carter Measurements Intervals [place] Rate: 80 P: 30 MT: 161 QRS: 31 QRSD: 142 T: -2 QT: 422 QTc: 487 Interpretive Statements Sinus rhythm Right bundle branch block Compared to ECG 08/14/2019 11:50:21 Sinus tachycardia no longer present Electronically Signed On 08-17-2019 8:31:20 CDT by Walt Carter [email or web address] <ELECTRONICALLY SIGNED> By: Walt Carter MD 08/17/19 0831 10 10 Walt Carter MD /TORO
--- NOTE | 2019-08-17 08:33 | EKG ---
[place] [address] [facility] [place] [address] ELECTROCARDIOGRAM REPORT Name: DAVID VINCENT Room #: 237-P ADM IN M.R.#: [id number] Admission: 08/14/19 Attend Phys: Maral Cortes Discharge: Date of : 50 Report #: [id number] THIS REPORT FOR: //name// [facility] Test Date: 2019-08-16 Test Time: 06:57:49 Pat Name: DAVID VINCENT Department: Room: 237 P Gender: F Operations Clerk: Sylvie LEPE : 1950 Requested By: Nhan Lund Order Number: [id number] MD: Nhan Lund Measurements Intervals [place] Rate: 63 P: 27 OR: 165 QRS: 25 QRSD: 138 T: -8 QT: 460 QTc: 471 Interpretive Statements Sinus rhythm Right bundle branch block Compared to ECG 08/14/2019 11:50:21 No significant change was found Electronically Signed On 08-17-2019 8:32:49 CDT by Nhan Lund [email or web address] <ELECTRONICALLY SIGNED> By: Nhan Lund MD, [facility] 08/17/19 0832 0657 0657 Nhan Lund MD, FACC /EPI
[2019-08-17 13:54] LABS: BE(vivo) 10.7 mmol/L (-2 to +3); HCO3 36.4 mmol/L (22.0-26.0); PCO2 54.1 mmHg (35.0-45.0); PO2 72.7 mmHg (80.0-100.0); pH 7.446 (7.360-7.450); sO2 94.9 % (92.0-98.0)
[2019-08-17 16:42] LABS: ALBUMIN 3.1 g/dL (3.4-5.0); TOTAL BILIRUBIN 0.3 mg/dL (<0.1-1.0); TOTAL PROTEIN 6.7 g/dL (6.4-8.2)
[2019-08-18] VITALS (26 sets, daily range): BP systolic 124–171; BP diastolic 53–74
[2019-08-18 06:44] LABS: CALCIUM 8.5 mg/dL (8.5-10.1); CREATININE 0.6 mg/dL (0.6-1.0); POTASSIUM 3.7 mmol/L (3.5-5.1)
--- NOTE | 2019-08-18 07:00 | NUR ---
No significant changes observed through the night. VS remain stable and SpO2 adequate on current vent settings. Tolerating TF with minimal residuals and no BM observed. Urine output adequate for this shift. PRN fentanyl given frequently for breakthrough restlessness and agitation with desired effect achieved. Am lab results noted, continue with POC.
--- NOTE | 2019-08-18 13:07 | PATH ---
[facility] [address] [place] [address] PATHOLOGY RPT PROCEDURE Name: DAVID VINCENT Room #: 237-P ADM IN .R.#: [id number] Admission: 08/14/19 Date of : 50 Discharge: Report #: [id number] Path Case #: [id number] Note [facility] Accession Number: [id number] TESTS RESULT FLAG UNITS REF RANGE LAB Clinician Provided Cytology Information No. of containers..01 Other (Miscellaneous) Source: RLL CYTO BRUSH TIP DIAGNOSIS: 02 RLL CYTO BRUSH TIP NEGATIVE FOR MALIGNANT CELLS. REACTIVE BRONCHIAL CELLS ARE PRESENT. Comment: Dr. Adelaide Lin has seen this case and concurs with the diagnosis rendered. Pathologist ICD10: 02 A41.9 Signed out by: 02 Lauren Baum MD, Pathologist NPI- [id number] Performed by: Rafi Peters, Route Delivery Driver ([facility]) Gross description: 01 25ML, COLORLESS, CLEAR /LCS 10/19/1840 0000 Local FLAG LEGEND: L-Low Normal,H-High Normal,LL-Alert Low,HH-Alert High <-Panic Low,>-Panic High,A-Abnormal,AA-Critical Abnormal Performed at: [address] [place] [address] Jayme Woods MD, [address] [address] Lauren Baum MD, Specimen Comment: A courtesy copy of this report has been sent to [phone] Specimen Comment: [phone] Specimen Comment: Report sent to / DR TAVAREZ Performed at: [address], [place], [place] [id number] MD Jayme Woods MD Phone: [phone]
--- NOTE | 2019-08-18 13:07 | PATH ---
[facility] [address] [place] [address] PATHOLOGY RPT PROCEDURE Name: DAVID VINCENT Room #: 237-P ADM IN M.R.#: [id number] Admission: 08/14/19 Date of : 50 Discharge: Report #: [id number] Path Case #: [id number] Note [facility] Accession Number: [id number] TESTS RESULT FLAG UNITS REF RANGE LAB Clinician Provided Cytology Information No. of containers..01 Slide Source: RLL BRONCH BRUSHINGS DIAGNOSIS: 02 RLL BRONCH BRUSHINGS NEGATIVE FOR MALIGNANT CELLS. REACTIVE BRONCHIAL CELLS ARE PRESENT. SCATTERED RARE FUNGAL HYPHAE IDENTIFIED. MARKED AIR-DRYING ARTIFACT LIMITING INTERPRETATION. Comment: This case was coreviewed by Dr. Adelaide Lin, who concurs with my diagnosis. Pathologist ICD10: 02 A41.9 Signed out by: 02 Lauren Baum MD, Pathologist NPI- [id number] Performed by: Rafi Peters, Freight Car Repairer ([facility]) FLAG LEGEND: L-Low Normal,H-High Normal,LL-Alert Low,HH-Alert High <-Panic Low,>-Panic High,A-Abnormal,AA-Critical Abnormal Performed at: [address] [place] [address] Jayme Woods MD, [address] [address] Lauren Baum MD, Specimen Comment: A courtesy copy of this report has been sent to [phone] Specimen Comment: [phone] Specimen Comment: Report sent to / DR TAVAREZ Performed at: [address], [place], [place] [id number] MD Jayme Woods MD Phone: [phone]
--- NOTE | 2019-08-18 13:07 | PATH ---
[facility] [place] [address] [address] PATHOLOGY RPT PROCEDURE Name: DAVID VINCENT Room #: 237-P ADM IN M.R.#: [id number] Admission: 08/14/19 Date of : 50 Discharge: Report #: [id number] Path Case #: [id number] Note LCA Accession Number: [id number] TESTS RESULT FLAG UNITS REF RANGE LAB Clinician Provided Cytology Information No. of containers..01 Other (Miscellaneous) Source: RML BAL DIAGNOSIS: 02 RML BAL NEGATIVE FOR MALIGNANT CELLS. PULMONARY MACROPHAGES (DUST CELLS) ARE PRESENT. SCATTERED RARE FUNGAL HYPHAE IDENTIFIED, SEE COMMENT. Comment: A properly controlled GMS fungal special is performed and it shows rare to few hyphae as well as yeast forms identified; however due to the scant nature the morphologic evaluation is limited. Dr. Adelaide Lin has seen this case and concurs with my interpretation. Pathologist ICD10: 02 A41.9 Signed out by: Ron Baum MD, Pathologist NPI- [id number] Performed by: Ct Peters, Build Automation Engineer ([facility]) Gross description: 01 7ML, RED, CLOUDY /LCS 10/19/1840 0000 Local FLAG LEGEND: L-Low Normal,H-High Normal,LL-Alert Low,HH-Alert High <-Panic Low,>-Panic High,A-Abnormal,AA-Critical Abnormal Performed at: 01 [facility] [address] [facility] [address] [place] [address] Jayme Woods MD, 02 [facility] [address] [address] Lauren Baum MD, Specimen Comment: A courtesy copy of this report has been sent to [phone] Specimen Comment: [phone] Specimen Comment: Report sent to / DR TAVAREZ Performed at: [address] [address] PATHOLOGY RPT PROCEDURE Name: DAVID VINCENT Room #: 237-P [facility] IN M.R.#: [id number] Admission: 08/14/19 Date of : 50 Discharge: Report #: [id number] Path Case #: [id number] [facility] [address] [facility] [address], [place], [place] [id number] MD Jayme Woods MD Phone: [phone]
--- NOTE | 2019-08-18 17:35 | NUR ---
PT IS SLEEPY REMAINS ON SEDATION. DOES NOT FOLLOW ANY COMMANDS. LUNGS ARE COARSE.FAMILY AT BEDSIDE FOR SUPPORT. REMAINS OF THE VENT FOR SUPPORT. TURN Q 2 HOURS FOR CARE. GALEANA CATH TO DD WITH GREENISH COLORED OUTPUT BUT GOOD OUTPUT AT THIS TIME. DOESNT APPEAR IN ANY PAIN AT THIS TIME WITH ASSESSMENT. VS STABLE.BILATERAL WRIST RESTRAINTS AT THIS TIME PER NURSING.
[2019-08-19] VITALS (25 sets, daily range): BP systolic 117–178; BP diastolic 45–89
--- NOTE | 2019-08-19 06:00 | NUR ---
REMAINS INTUBATED AND SEDATED WITH PROPOFOL. 600 CC UO THIS SHIFT BATHED REMAINBS IN SINUS RHYUTH, FOLLOWS BNO COMMANDS WHRN SEDATION IS LIGHTENED.
[2019-08-19 06:39] LABS: CALCIUM 8.5 mg/dL (8.5-10.1); CREATININE 0.5 mg/dL (0.6-1.0); POTASSIUM 3.5 mmol/L (3.5-5.1)
--- NOTE | 2019-08-19 12:42 | NUR ---
SISTER REQUESTED AN UPDATE FROM ONE OF THE DOCTORS. TEXT SENT TO DR. ZIMMERMAN AND HE CALLED AND TALKED TO HER ON THE PHONE. CT HEAD ORDERED AND NEUROLOGIST CONSULTED.
--- NOTE | 2019-08-19 15:28 | NUR ---
FOLLOWING FOR DC PLANNING. CLINICAL INFO REVIEWED. PT REMAINS ON VENT, OPENS EYES BUT NOT FOLLOWING COMMANDS. CT HEAD DONE TODAY WITH NO ACUTE FINDING. FAMILY SUPPPORTIVE AND HERE DAILY. PT LIVES WITH DTR AND HX OF SEVERE EMPHYSEMA WITH FEV1 0.8 LITERS AND HOME O2 USE 4L NC. WILL NEED LTAC VS REHAB.
--- NOTE | 2019-08-19 15:43 | NUR ---
PATIENT TAKEN FOR CT HEAD WHICH WAS NEGATIVE. UPON GETTING BACK IN BED FROM THE CT TABLE THE PICC LINE DRESSING WAS NOTED TO HAVE PEELED BACK. DRESSING WAS REINFORCED WITH TAPE AND PROPOFOL AND KCL STOPPED. ENROBING MACHINE CORDER CAT WAS NOTIFIED WHO CAME AND REDRESSED IT AND A STAT CXR WAS OBTAINED WHICH CONFIRMED IT WAS IN THE RIGHT PLACE. INFUSIONS WERE RESUMED.
[2019-08-19 15:50] LABS: PROTIME 10.9 Seconds (9.3-11.4)
[2019-08-19 23:06] LABS: ADENOVIRUS Negative (Negative); INFLUENZA A Negative (Negative); INFLUENZA B Negative (Negative); METAPNEUMOVIRUS Negative (Negative); PARAINFLUENZA 1 Negative (Negative); PARAINFLUENZA 2 Negative (Negative); PARAINFLUENZA 3 Negative (Negative); RHINOVIRUS Negative (Negative); RSV A Negative (Negative); RSV B Negative (Negative)
[2019-08-20] VITALS (24 sets, daily range): BP systolic 121–157; BP diastolic 41–93
[2019-08-20 05:30] LABS: HEMATOCRIT 27.9 % (37.0-47.0); HEMOGLOBIN 9.2 gm/dL (12.0-15.0); MCH 31.7 pg (26.0-34.0); MCHC 33.1 g/dL (28.0-37.0); MCV 95.9 fL (80.0-100.0); RBC 2.91 mil/uL (4.20-5.00); RDW 14.2 % (10.5-14.5); WBC 8.1 thou/uL (4.0-11.0)
[2019-08-20 05:52] LABS: PROTIME 10.9 Seconds (9.3-11.4)
[2019-08-20 06:00] LABS: CALCIUM 8.3 mg/dL (8.5-10.1); CREATININE 0.5 mg/dL (0.6-1.0); MAGNESIUM 2.1 mg/dL (1.8-2.4); POTASSIUM 3.6 mmol/L (3.5-5.1)
--- NOTE | 2019-08-20 07:41 | NUR ---
pt following commands by nodding her head and wiggling her toes. RN able to wean sedation from 30 mcg to 25 mcg throughout the night. Pt tolerating tube feed. Vital signs stable throughout the night. Pt therapeutic on the heparin drip this am.
[2019-08-20 10:32] LABS: BE(vivo) 7.5 mmol/L (-2 to +3); HCO3 33.3 mmol/L (22.0-26.0); PCO2 53.1 mmHg (35.0-45.0); PO2 85.1 mmHg (80.0-100.0); pH 7.415 (7.360-7.450); sO2 96.4 % (92.0-98.0)
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
--- NOTE | 2019-08-20 15:10 | NUR ---
PT EXTUBATED TODAY AND ON FACE SHIELD, REMAINS LETHARGIC. THERAPY EVAL ORDERED FOR REHAB NEEDS.
--- NOTE | 2019-08-20 16:50 | NUR ---
PT WAS EXTUBAITED TODAY. ON 35 PERCENT FACE SHEILD. OXYGEN SATURATJION IS 96 PERCENT. VS STABLE. FAMILY AT BEDSIDE TODAY VISITING PT. REPOSITION Q 2 HOURS. FEW ICE CHIPS GIVEN TO PT FOR DRY MOUTH. LUNGS ARE COARSE. GALEANA WITH YELLOW URINE OUTPUT GOOD AMOUNT. NO CONCERNS NOTED AT THIS TIME PER NURSING. RESTRAINTS REMOVED.
[2019-08-21] VITALS (18 sets, daily range): BP systolic 122–146; BP diastolic 38–78
--- NOTE | 2019-08-21 05:48 | NUR ---
1899 Received report from MOHINI Casey and assumed patient care. Patient noted to be in NSR with O2 sats 93% with a face shield at 35%. Patient resting with eyes shut. 2022 Patient complains of nausea and feeling sick. Patient given Zofran at this time and place on 4 L NC. 2138 Patient medicated at this time. Meds were given crushed and in applesauce. Patient tolerated swallowing well. 2314 Patient is resting with eyes shut and in no distress at this time. 3 Patient medicated at this time with the Elixer delivered by pharmacy. Patient unable to swallow the liquid given by syringe but was able to take it mixed in applesauce. 0338 Patient resting with eyes shut. No distress is noted. [address] Roth at this time. Patient quicker to respond than previously noted. 07 Report given to oncplacido RAJAN. Care relinquished.
[2019-08-21 06:05] LABS: CREATININE 0.5 mg/dL (0.6-1.0)
[2019-08-21 06:10] LABS: INR 1.1; PROTIME 11.3 Seconds (9.3-11.4)
--- NOTE | 2019-08-21 10:57 | NUR ---
0730-Pt was awake but a little confused w/ time. Pt denied pain at the time of assessment. Pt followed this nurse's commands appropriately. LS clear. O2 sat was between 90 to 93 w/ 4 L of oxygen. Murmur was ascultated. NSR on monitor. No edema present. NPO status. Speech therapy was consulted for swallow eval. 7265-This nurse notified Dr. Rose re pt's diet and speech therapy eval. Dr. Rose asked this nurse to do at bedside. 0963-This nurse did swallow test at bedside. Pt did not have respiratory distress for taking apple sauce, jello or water but drinking w/o straw was better to swallow. Dentures are at home per daughter. This nurse ordered for diet as Dr. Rose told this nurse to do so after the swallow eval.
--- NOTE | 2019-08-21 17:46 | NUR ---
Transfer notes @1710 Pt was transferred to Rm 357. Report was given to MOHINI Natarajan @7540. Pt was notified in advance and packed pt's belongings and delivered them with pt to the new room. Notified pharmacy re pt's transfer to 357 and asked pharmacy to deliver methadone to the nurse of 357.
[2019-08-22 04:56] VITALS: BP 142/66
[2019-08-22 06:20] LABS: INR 1.2; PROTIME 12.3 Seconds (9.3-11.4)
[2019-08-22 07:03] VITALS: BP 143/54
--- NOTE | 2019-08-22 07:37 | NUR ---
ASSUMED CARE AT 1900. PT DENIED PAIN OR SOB OVERNIGHT. INITIALLY HAD NO NAUSEA, BUT AFTER REPOSITIONING AND LYING FLAT, C/O NAUSEA. SAT PT UP AND GAVE LEMON-WICHITA SODA, WHICH HELPED SOME. HAS BEEN SR WITH BBB, HR 60-70, OCCASIONALLY DROPPING TO 50'S WHILE ASLEEP. HEPARIN DRIP INFUSING TO PICC. APTT RESULT CRITICAL HIGH THIS AM, NOTIFIED VAT TENDER AND ADJUSTED PER PROTOCOL WITH ON-COMING RN. NO OTHER CONCERNS, SHIFT REPORT GIVEN AT 0700.
[2019-08-22 12:07] LABS: HEMATOCRIT 30.6 % (37.0-47.0); HEMOGLOBIN 10.1 gm/dL (12.0-15.0); MCH 31.7 pg (26.0-34.0); MCHC 33.1 g/dL (28.0-37.0); MCV 95.8 fL (80.0-100.0); RBC 3.19 mil/uL (4.20-5.00); RDW 14.1 % (10.5-14.5)
[2019-08-22 12:21] LABS: CALCIUM 8.9 mg/dL (8.5-10.1); CREATININE 0.6 mg/dL (0.6-1.0); MAGNESIUM 1.9 mg/dL (1.8-2.4); POTASSIUM 3.7 mmol/L (3.5-5.1)
[2019-08-22 15:05] VITALS: BP 122/54
--- NOTE | 2019-08-22 18:38 | NUR ---
Patient's sister, Sarika Bustos, has pateint's code. However, patient only wants this sister to receive minimal information regarding her condition. I was asked to inform the sister the patient was doing better and was alert and oriented, only.
[2019-08-22 19:16] VITALS: BP 118/68
[2019-08-23 04:12] VITALS: BP 145/62
--- NOTE | 2019-08-23 04:28 | NUR ---
PATIENT IS ALERT AND ORIENTED. PATIENT IS UP WITH TWO CAN GET DIZZY WITH STANDING. PATIENT IS CONTIENT. PATIENT HAS VOIDED SENSE DC OF GALEANA. PATIENT IS NSR WITH BBB. PATIENTS LBM WAS THE 3RD. PATIENT IS 4LNC WHITCH IS HER BASELINE. PLAN IS TO ENCOURAGE ACTIVITY. AND TO TAKE PRECRIPTIONS AT HOME PRECRIBED. PATIENT IS RESTING COMFORTABLY IN BED. WCM. PATIENT IS PROGRESSING TO GOALS.
[2019-08-23 06:43] LABS: HEMATOCRIT 29.9 % (37.0-47.0); HEMOGLOBIN 9.8 gm/dL (12.0-15.0); MCH 31.3 pg (26.0-34.0); MCHC 32.6 g/dL (28.0-37.0); MCV 96.1 fL (80.0-100.0); RBC 3.12 mil/uL (4.20-5.00); RDW 14.1 % (10.5-14.5); WBC 6.9 thou/uL (4.0-11.0)
[2019-08-23 06:53] LABS: CALCIUM 9.4 mg/dL (8.5-10.1); CREATININE 0.5 mg/dL (0.6-1.0); POTASSIUM 3.8 mmol/L (3.5-5.1)
[2019-08-23 06:55] LABS: PROTIME 19.3 Seconds (9.3-11.4)
[2019-08-23 07:04] LABS: INR 1.9
[2019-08-23 08:14] VITALS: BP 151/60
--- NOTE | 2019-08-23 14:33 | NUR ---
CLARENCE reviewed chart and spoke with nursing and attending physician. Pt was transferred to from ICU on 08/21. Pt is progressing towards goals for discharge. [facility] consulted and can accept pt when medically stable. ENT consulted today to evaluate pt. CLARENCE met with pt at bedside. Introduced role of SW. Pt is alert/orientated. Pt states she does live at home with her dtr. Pt is normally on 4L of O2 at home. Pt's PCP is Dr. Cole Hunter. CLARENCE discussed recommendation for post-acute placement on 5[facility]. Pt is agreeable and states her plan is to return home after rehab. CLARENCE left voice message for [place] APS worker, Robert, to provide update and notify of new room and update on pt's condition. CLARENCE is following to assist as needed with discharge planning.
--- NOTE | 2019-08-23 15:01 | NUR ---
PATIENT SEEN BY DR. COHEN THIS DATE. PATIENT IS A CANDIDATE FOR ACUTE REHAB. PATIENT IS NOT MEDICAL READY TODAY. WILL CONTINUE TO FOLLOW. EVENT MARKETING SPECIALIST INFORMED. THANK YOU FOR THIS REFERRAL.
[2019-08-23 17:43] VITALS: BP 149/54
--- NOTE | 2019-08-23 20:08 | NUR ---
Patient advised today she did not want her sister, Sarika Bustos, to receive ANY information regarding her condition. Patient is slowly working towards her discharge goals: sheworked with PT and OT today; she also had a consult with [facility]. Tomorrow she is scheduled for a thyroid biopsy and an adrenal MRI- NPO after MN.
[2019-08-23 20:21] VITALS: BP 141/70
[2019-08-24] VITALS (7 sets, daily range): BP systolic 131–155; BP diastolic 50–72
--- NOTE | 2019-08-24 01:00 | NUR ---
RECEIVED CALL FROM PATIENTS SISTER. SHE WAS DEMANDING TO KNOW INFORMATION ABOUT THE PT. SOMEWHAT ARGUMENTATIVE WHEN SHE WAS INFORMED THAT THE PT HAS STATED THAT SHE DOES NOT WANT HER SISTER TO HAVE ANY INFORMATION IN REGARDS TO HER STATUS OR CARE HERE. DID SPEAK WITH PT DIRECTLY AND SHE CONFIRMED THAT TO THIS RN. ASKED IF SHE WAS WANTED TO TAKE ANY CALLS FROM HER SISTER AND SHE SAID SHARPLY "NO!"
--- NOTE | 2019-08-24 05:12 | NUR ---
PT MAKING SLOW PROGRESS TOWARDS GOALS. LUNGS CLEAR, DIMINISHED MILDLY IN BOTH BASES. NO COUGH NOTED OR REPORTED. O2 AT 4L PER NC. ROOM AIR O2 SAT 88%, 93% WHEN ON 4L. NO SOA REPORTED WHILE AT REST.
[2019-08-24 08:13] LABS: INR 1.8; PROTIME 18.7 Seconds (9.3-11.4)
[2019-08-24 09:51] LABS: HEMATOCRIT 30.2 % (37.0-47.0); HEMOGLOBIN 9.8 gm/dL (12.0-15.0); MCH 31.2 pg (26.0-34.0); MCHC 32.4 g/dL (28.0-37.0); MCV 96.2 fL (80.0-100.0); RBC 3.14 mil/uL (4.20-5.00); RDW 14.4 % (10.5-14.5); WBC 7.3 thou/uL (4.0-11.0)
[2019-08-24 09:57] LABS: CALCIUM 9.6 mg/dL (8.5-10.1); CREATININE 0.5 mg/dL (0.6-1.0)
--- NOTE | 2019-08-24 10:25 | HC ---
[facility] [address] [address] CONSULTATION Name: DAVID VINCENT Room #: 357-P ADM IN .R.#: [id number] Admission: 08/14/19 Attend Phys: Maral Cortes Discharge: Date of : 50 Report #: [id number] THIS REPORT FOR: //name// CC: Cole Britton DATE OF SERVICE: 08/23/2019 ENDOCRINE CONSULTATION NOTE REASON FOR CONSULTATION: Thyroid nodules. HISTORY OF PRESENT ILLNESS: This is a 69-year-old female patient who was admitted on 08/14/2019 due to altered mental status in the context of active COPD, emphysema, pneumonia as well as CHF. She was subsequently admitted for further care and monitoring. Since admission, she has been dealing with the issues of acute on chronic hypoxemic hypercapnic respiratory failure secondary to emphysema and COPD exacerbation as well as pneumonia and possibly heart failure. Also, she was identified as having acute encephalopathy and had an acute kidney injury that resolved as well as atrial fibrillation. During the patient's stay in the hospital, she has undergone multiple imaging studies some of which revealed the presence of thyroid nodules. I interviewed the patient in the presence of her sister and son and when asked whether she has had a prior knowledge of thyroid abnormalities she denied having that knowledge in the past. She has not appreciated neck fullness, neck pain, voice changes or compressive symptoms that she recalls. Also while the patient was being imaged for her pulmonary issues she was accidentally identified as having a 2 cm left adrenal adenoma which she has not known of in the past either. REVIEW OF SYSTEMS: CONSTITUTIONAL: Fatigue, tiredness, fever, chills but no changes in body weight. HEENT: Negative for sore throat, sinus pain, ear drainage. PULMONARY: Shortness of breath, cough but not hemoptysis. CARDIAC: Occasional palpitations, lower extremity swelling, dyspnea on exertion but not chest pain. GASTROINTESTINAL: Occasional abdominal distention, nausea but no vomiting or major changes in bowel frequency. NEUROLOGY: Noted for occasional dizziness, lightheadedness but not loss of consciousness or seizure activity. MUSCULOSKELETAL: Sporadic issues with arthralgia, myalgia. PSYCHIATRIC: Occasional alterations in mood, but no hallucinations or delusions. Otherwise, review of system is noncontributory other than those [address] [address] CONSULTATION Name: DAVID VINCENT Room #: 357-P [facility] IN .R.#: [id number] Admission: 08/14/19 Attend Phys: Maral Cortes Discharge: Date of : 50 Report #: [id number] mentioned in HPI. PAST MEDICAL HISTORY: 1. COPD, emphysema. 2. CHF. 3. Hypertension. 4. Hyperlipidemia. 5. Right brachial plexus injury. 6. Ovarian cyst with oophorectomy in 2008. 7. Factor V Leiden, on chronic anticoagulation therapy. 8. AFib. OUTPATIENT MEDICATIONS: Include folic acid 1 mg daily, methotrexate 2.5 mg taken as 20 mg weekly, atenolol 50 mg b.i.d., atorvastatin 10 mg b.i.d., amlodipine 10 mg daily, furosemide 40 mg b.i.d., KCl 40 mEq daily, Zoloft 50 mg daily, Colace 100 mg daily, warfarin 4 mg daily, gabapentin 300 mg. ALLERGIES: MORPHINE. FAMILY HISTORY: Noncontributory. SOCIAL HISTORY: The patient is an ex-smoker, quit smoking over a year ago. PHYSICAL EXAMINATION: GENERAL: Pleasant female patient who is not in apparent pain or distress. VITAL SIGNS: Blood pressure is 151/60 mmHg, heart rate is 57 beats per minute, respirations 18 per minute, temperature 36.5 degrees. CONSTITUTIONAL: The patient sits comfortably in her reclining chair, not in apparent pain or distress. HEENT: Anicteric sclerae. Intact extraocular motions. NECK: Supple, without JVD. Thyroid gland is appreciated, seems enlarged with an irregular texture and right-sided fullness. The exam is nontender. It is not associated with lymphadenopathy. CHEST: Noted for limited air entry bilaterally, with scattered rhonchi, rales, and wheezes, scattered crackles. HEART: Regular rate and rhythm, without murmurs or gallops. ABDOMEN: Soft and lax, without tenderness or organomegaly. No guarding. She has active bowel sounds. EXTREMITIES: Lower extremity exam is noted for bilateral ankle edema. No skin break, deformities or ulcerations. NEUROLOGIC: Awake, alert and oriented to time, place and person. The rest of her examination was noted for right-sided weakness. PSYCH: Pleasant, interactive. Normal mood and affect. LABORATORY AND RADIOLOGY RESULTS: Sodium 137, potassium 3.8, chloride 101, CO2 [address] [address] CONSULTATION Name: DAVID VINCENT Room #: 357-P [facility] IN M.R.#: [id number] Admission: 08/14/19 Attend Phys: Maral Cortes Discharge: Date of : 50 Report #: [id number] of 33, anion gap 3, BUN 27, creatinine 0.5, glucose 108, AST 30, amylase 27, lipase 51, total bilirubin 0.3, calcium 9.4, magnesium 2.0, alkaline phosphatase 71, ALT 17, total protein 6.7, albumin 3.1, GFR 122. Ammonia 29. Lactic acid 0.6. Total CPK 445. Troponin undetectable. Total cholesterol 206, triglycerides 131, HDL 46, LDL 134. BNP 1337. Free T4 1.1. INR 1.9. White blood count 6.9, hemoglobin 9.8, hematocrit 29.9, platelets 208. TSH 1.42. Radiology reports were reviewed in their entirety and significantly a thyroid ultrasound was done and reported right thyroid nodule that measures 1.3 x 1.2 x 1.0 cm. Left thyroid nodule that measures 1.5 x 1.7 cm and an isthmus nodule that measures 1.9 x 1.4 x 1.8 cm. The report also points out to the fact that the thyroid gland is diffusely inhomogeneous and difficult to evaluate. The left lower thyroid nodule shows hypoechoic appearance with ill-defined borders considered to be a T1-RADS 4 nodule while the thyroid isthmus nodule was felt to be a T1-RADS 4 and the left thyroid nodule was more isoechoic and defined as a T1-RADS 3. Also, a CT scan of the head without contrast was done and a CT scan of the chest without contrast was done and pointed out to the presence of a left adrenal mass that measures 2.0 cm. ASSESSMENTAND PLAN: 1. Multinodular goiter, thyroid nodules. As noted above, the patient was accidentally identified as having multiple thyroid nodules as detailed in the thyroid ultrasound above. This is an incidental finding without a prior known history of these and no active symptoms associated with them as well. The patient and her family were counseled at length about the implications of such nodules, their pathogenesis, and the best course of action. I do agree with the recommendations contained and the radiology report when it comes to selecting the isthmus nodule for further evaluation with a needle biopsy given its size. I relate the same recommendation to the patient and her family who were agreeable to proceed as advised having understood the nature of an ultrasound-guided FNA procedure, the desired objectives and potential complications. Further recommendations in terms of long-term management will follow the results of her upcoming FNA. I am quite hopeful that once the benign nature of this nodule is confirmed that she would be able to be monitored periodically both clinically and with an ultrasound. 2. Left adrenal mass. While the patient was being imaged for her active pulmonary issues, she was incidentally found to have a left adrenal mass that is 2 cm. The Radiology cuts that identified this lesion were limited and there is not a whole lot of input on the consistency of this mass. As a newly identified adrenal lesion, the efforts would be mostly geared towards assessing the structural and functional nature of this lump via obtaining a full endocrine workup including aldosterone renin activity, plasma metanephrines and the 24-hour urine studies for metanephrines and cortisol as well as requesting a dedicated adrenal study to further elucidate tissue constituency of this lesion. Further recommendations will be based on these results. 3. Hypertension. The patient's level of blood pressure control has mostly been [facility] [address] [place] [address] CONSULTATION Name: DAVID VINCENT Room #: 357-P ADM IN M.R.#: [id number] Admission: 08/14/19 Attend Phys: Maral Cortes Discharge: Date of : 50 Report #: [id number] reasonable, she is to continue with the same. 4. Hyperlipidemia. The patient is currently on atorvastatin therapy and tolerates it well, she is to continue with the same. I have reviewed the patient's present and past clinical notes, laboratory data, radiologic studies and other pertinent items in her electronic medical chart for over 35 minutes. I appreciate this consult. <ELECTRONICALLY SIGNED> By: Dorian Chong MD 08/24/19 1025 1215 0016 Dorian Chong MD /nt
--- NOTE | 2019-08-24 14:09 | NUR ---
CLARENCE reviewed chart and spoke with nursing and attending physician. Pt had KUB earlier today and has an ileus. Plan is for pt to have a bx tomorrow and then discharge to 5N. SW updated 5N regional rehabilitation director. CLARENCE left a voice message for [place] [facility] telehealth case manager, Robert Arriola to provide update and notify of discharge plan. CLARENCE is following to assist as needed with discharge planning.
--- NOTE | 2019-08-24 16:05 | NUR ---
AM: Pt was NPO overnight. Complained of nausea this AM when brought to have MRI done so MRI was not done due to pt refusal. Will attempt again tomorrow AM. Biopsy was not done today due to high INR. Will attempt tomorrow. Pt was agitated this AM. Noon: Pt complains of pain in R hand, R arm, chest, and abdomen at times. Pt's 2 sisters are at bedside. Pt's AM meds were given once off NPO. 1400: Pt is now on clear liquid diet and NPO after midnight tonight. Pt was given applesauce and fitz mist and tolerates them well. Swallow test was done ealier and lead to progression of diet to clear liquids. Pt is currently resting in chair comfortably. Pt is no longer agitated. Given ice pack for hand pain this afternoon and says it seems to be helping a little.
[2019-08-25 03:30] VITALS: BP 125/64
[2019-08-25 05:05] LABS: HEMATOCRIT 30.2 % (37.0-47.0); HEMOGLOBIN 10.2 gm/dL (12.0-15.0); MCH 31.9 pg (26.0-34.0); MCHC 33.8 g/dL (28.0-37.0); MCV 94.4 fL (80.0-100.0); RBC 3.2 mil/uL (4.20-5.00); RDW 14.1 % (10.5-14.5); WBC 6.9 thou/uL (4.0-11.0)
[2019-08-25 05:12] LABS: CALCIUM 9.6 mg/dL (8.5-10.1); CREATININE 0.5 mg/dL (0.6-1.0); POTASSIUM 4.3 mmol/L (3.5-5.1)
[2019-08-25 05:13] LABS: PROTIME 20.3 Seconds (9.3-11.4)
--- NOTE | 2019-08-25 06:05 | NUR ---
PT MAKING SLOW PROGRESS TOWARDS GOALS. ON O2 AT 4L PER NC. LUNGS CLEAR, DIMINISHED THROUGHOUT. DENIES ANY SOA WHILE AT REST.
[2019-08-25 07:32] VITALS: BP 154/66
--- NOTE | 2019-08-25 14:20 | NUR ---
DISCHARGE NOTE: SW reviewed chart and spoke with nursing and attending physician. Pt to have thyroid nodule bx today per endocrinology. Pt will discharge to 5N later today. CLARENCE met with pt at bedside to provide update. Pt is aware and agreeable with plan. CLARENCE left another voice message for Robert Arriola with [place] [facility] ([phone]) to notify of pt's discharge plan. Contact info for Rehab CM provided to Robert as well. CM/SW following to assist as needed with discharge planning.
--- NOTE | 2019-08-25 16:01 | NUR ---
Assumed care approx. 0700
--- NOTE | 2019-08-25 16:31 | NUR ---
Assumed care approx. 0700 this AM. Pt NPO from midnight until biopsy today. Heart healthy diet ordered upon arrival back from biopsy. Tap water enema x2 ordered as pt hasn't had a recent BM; ileus noted per Dr. Gutierrez. Half of first tap water enema given and patient refused the rest; small/liquid BM (mainly water) obtained in BSC. Dr. Gutierrez notified of the result plus the patients refusal to continue the enema. During this process, the patient was agressive with language while laying hands on this RN and cussing at staff members. Foul language and disrespectful mannerisms has since then continued; this activity was mainly noted after the biopsy; although, has continued as the day has gone on. Dr. Gutierrez notified of the patient's behavior. Haldol has been ordered if needed for agitation. Pt is no longer going to rehab today as the patient refused her lunch tray and hasn't had a true BM on her own yet. Pt hopefully to dc to rehab tomorrow. Pt has not progressed toward plan of care goals during this shift at this time.
[2019-08-25 16:38] VITALS: BP 149/64
[2019-08-25 19:50] VITALS: BP 144/69
[2019-08-26 03:25] VITALS: BP 138/60
[2019-08-26 06:13] LABS: HEMATOCRIT 30.1 % (37.0-47.0); HEMOGLOBIN 9.9 gm/dL (12.0-15.0); MCH 31.3 pg (26.0-34.0); MCHC 32.8 g/dL (28.0-37.0); MCV 95.3 fL (80.0-100.0); RBC 3.16 mil/uL (4.20-5.00); RDW 14.3 % (10.5-14.5); WBC 8.4 thou/uL (4.0-11.0)
[2019-08-26 06:23] LABS: INR 2.3; PROTIME 23.4 Seconds (9.3-11.4)
[2019-08-26 06:28] LABS: CALCIUM 9.1 mg/dL (8.5-10.1); CREATININE 0.5 mg/dL (0.6-1.0)
--- NOTE | 2019-08-26 06:56 | NUR ---
ASSUMED CARE OF PT AT 1900. A&Ox4, COOPERATIVE AND PLEASANT WITH THIS RN ALL SHIFT. VS STABLE. PT HAD LARGE, SOFT BM IN BSC AT START OF SHIFT. STATED SHE HAD PAIN, 8/10 IN UPPER EXTREMITY. PICC LINE PATENT WITH DRESSING INTACT, HAS LOTS OF BRUISING AROUND INSERTION SITE, SKIN IS INTACT. ABLE TO SLEEP OVER NOC. PROGRESSING WELL TOWARDS POC GOALS.
[2019-08-26 07:14] VITALS: BP 156/69
[2019-08-26 08:11] LABS: ALDOSTERONE < 1.0 ng/dL (0.0-30.0)
[2019-08-26] MEDS ORDERED: FLECAINIDE ACET50 M1 PO (10:23)
[2019-08-26] MEDS ORDERED: COUMADIN 4 MG TA4 M1 PO (10:23)
[2019-08-26] MEDS ORDERED: LIPITOR 20 MG T20 M1 PO (10:23)
[2019-08-26] MEDS ORDERED: METHADONE HCL 110 MG PO (10:33)
[2019-08-26] MEDS ORDERED: PERCOCET PO (10:33)
[2019-08-26] MEDS ORDERED: LASIX 40 MG TAB40 MG PO (10:44)
[2019-08-26] MEDS ORDERED: PULMICORT0.5 MG/21 INH (10:44)
[2019-08-26] MEDS ORDERED: SENNA-TIME S T1 EACH PO (10:45)
[2019-08-26] MEDS ORDERED: PREDNISONE 20 M20 MG PO (10:46)
[2019-08-26] MEDS ORDERED: LEVAQUIN 750 M750 MG PO (10:48)
[2019-08-26] MEDS ORDERED: PROTONIX40 M3 PO (10:49)
[2019-08-26 11:06] VITALS: BP 156/69
[2019-08-26 11:09] LABS: RENIN 0.733 ng/mL/hr (0.167-5.380)
--- NOTE | 2019-08-26 12:48 | NUR ---
PT is A&OX3 , but pt is forgetful, pt is continuing o2 3L/MIN/NC, pt's vs and o2sat are stable, pt denies pain and sob at this time, PT will D/C to 5 N rehab unit, RN has giving report now.
--- NOTE | 2019-08-26 13:24 | NUR ---
PT's Otero catheter was D/C at 1300pm, after D/C pt's Otero catheter , pt has voided 150ml urine, pt was D/C to 5N at 1320pm.
--- NOTE | 2019-08-26 14:39 | NUR ---
DISCHARGE NOTE: SW reviewed chart and spoke with nursing and attending physician. Pt is medically stable for discharge to 5 today. Pt agreeable with plan. Rehab CM to follow and assist as needed with discharge planning.
[2019-08-26 21:09] LABS: ADENOVIRUS Negative (Negative); INFLUENZA A Negative (Negative); INFLUENZA B Negative (Negative); METAPNEUMOVIRUS Negative (Negative); PARAINFLUENZA 1 Negative (Negative); PARAINFLUENZA 2 Negative (Negative); PARAINFLUENZA 3 Negative (Negative); RHINOVIRUS Negative (Negative); RSV A Negative (Negative); RSV B Negative (Negative)
[2019-08-27 12:08] LABS: URINE FREE CORTISOL 10 ug/24 hr (6-42)
--- NOTE | 2019-08-27 13:08 | PATH ---
[facility] [address] [address] PATHOLOGY RPT PROCEDURE Name: DAVID VINCENT Room #: 357-P [facility] IN M.R.#: [id number] Admission: 08/14/19 Date of : 50 Discharge: 08/26/19 Report #: [id number] Path Case #: [id number] Note [facility] Accession Number: [id number] TESTS RESULT FLAG UNITS REF RANGE LAB Clinician Provided Cytology Information No. of containers..01 Other (Miscellaneous) Source: LEFT ISTHMUS NODULE DIAGNOSIS: LEFT ISTHMUS NODULE, FINE NEEDLE ASPIRATION NEGATIVE FOR MALIGNANT CELLS. BETHESDA CATEGORY II. SPECIMEN CONSISTS OF GROUPS OF FOLLICULAR CELLS, HEMOSIDERIN-LADEN MACROPHAGES, COLLOID, AND BLOOD. THIS PATTERN IS COMPATIBLE WITH A COLLOID NODULE. COLLOID IS PRESENT. RED BLOOD CELLS ARE PRESENT. THIS INTERPRETATION INCLUDES EVALUATION OF A CELL BLOCK. Comment: Nuclear features of papillary thyroid carcinoma are not identified. The differential diagnosis includes a macrofollicular adenoma. Please note sample may not be entirely retail account representative. Correlate clinically and follow-up as indicated. Pathologist ICD10: 02 E04.1 Signed out by: Lauren Baum MD, Pathologist NPI- [id number] Performed by: Johanne Hand, Public Health Advisor (ASCP) Gross description: 01 30ML, RED, /LCS 10/19/1840 0000 Local FLAG LEGEND: L-Low Normal,H-High Normal,LL-Alert Low,HH-Alert High <-Panic Low,>-Panic High,A-Abnormal,AA-Critical Abnormal Performed at: 01 [facility] [address] [place] [address] [address] [place] [address] Jayme Woods MD, 02 [facility] [address] [address] Lauren Baum MD, Specimen Comment: A courtesy copy of this report has been sent to [phone] [address] PATHOLOGY RPT PROCEDURE Name: DAVID VINCENT Room #: 357-P DIS IN M.R.#: [id number] Admission: 08/14/19 Date of : 50 Discharge: 08/26/19 Report #: [id number] Path Case #: [id number] Specimen Comment: Report sent to DR ANDRADE Specimen Comment: A duplicate report has been generated due to demographic updates. Performed at: 01 [facility] [place] [address], [place], [place] [id number] MD Jayme Woods MD Phone: [phone]
--- NOTE | 2019-08-31 12:00 | HC ---
[facility] [place] [address] CONSULTATION Name: DAVID VINCENT Room #: 357-P [facility] IN .R.#: [id number] Admission: 08/14/19 Attend Phys: Maral Cortes Discharge: 08/26/19 Date of : 50 Report #: [id number] THIS REPORT FOR: //name// CC: Cole Britton DATE OF SERVICE: 08/23/2019 HISTORY OF PRESENT ILLNESS: The patient is a 69-year-old white female who was admitted with acute mental status changes x 2 days. O2 sats in the 80s. She was noted to have multilobar pneumonia and hemoptysis was intubated. Her course was complicated by the encephalopathy. She was seen by Neurology. She was treated for paroxysmal atrial fibrillation. She had iiwcg-lv-kqlvjbb diastolic heart failure with cardiology involved. Her acute renal insufficiency has resolved. She does have thyroid nodules and is getting an ultrasound of her thyroid and apparently there are plans for a biopsy. She has a factor V Leiden deficiency. We are seeing her in rehabilitation medicine consultation. PAST MEDICAL HISTORY: Includes COPD, premorbidly on 4 liters. She has had prior histories of pneumonia. She does have a history of rheumatoid arthritis, atrial fibrillation, factor V Leiden. 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 She continues to have significant weakness of that right upper extremity. MEDICATIONS: Please see the full medication listing. HABITS: Former tobacco abuse, quit greater than a year ago. No history of alcohol abuse. SOCIAL HISTORY: Lives in a ranch style house with her daughter. She is on 4 liters nasal prong O2. Daughter works. The patient's gait was without adaptive aids, one step in. REVIEW OF SYSTEMS: No current complaints of chest pain, shortness of breath or abdominal discomfort. PHYSICAL EXAMINATION: GENERAL: A 69-year-old white female in no obvious distress. She is on nasal prong O2. Facies appeared symmetric. She will follow basic 1 step commands. NEUROLOGIC: There is some latency to her responses. She notes some frustration with her current status. EXTREMITIES: Functional range of motion of the left upper extremity, strength is grade 4-/5. DTRs are trace to 1. Right upper extremity, she has weakness, especially of C5 innervated musculature including biceps and supination. She has a well-healed scar over her right-sided neck over the brachial plexus area. [address] [address] CONSULTATION Name: DAVID VINCENT Room #: 357-P [facility] IN M.R.#: [id number] Admission: 08/14/19 Attend Phys: Maral Cortes Discharge: 08/26/19 Date of : 50 Report #: [id number] Lower extremities, there is no focal calf swelling. Strength is probably a grade 3+ to 4-/5. DTRs are trace to 1. Functionally, she is mod assist with sit to stand. Gait was mod assist to pivot to the chair. ASSESSMENT: A 69-year-old white female with the following problem list: 1. 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 2. Toxic metabolic encephalopathy with likely hypoxic component from initial presentation. This has improved. 3. Zkexa-hd-ngzeobh respiratory failure with prior mechanical ventilation, now extubated. 4. Multilobar pneumonia. 5. Paroxysmal atrial fibrillation. 6. Eczzo-kj-nyluhos diastolic heart failure. 7. Acute kidney injury, which has resolved. 8. Thyroid nodules apparently to get ultrasound of the thyroid and to have a biopsy done per discussion with nursing. 9. Factor V Leiden deficiency. PLAN: The patient is a candidate for an acute [address] [place] [address] inpatient rehabilitation stay when medically ready and a bed available. With further thyroid evaluation underway, we will need to hold off on rehab unit transfer until this evaluation is completed. We will be glad to follow along with you. <ELECTRONICALLY SIGNED> By: Kam Gray MD 08/31/19 1200 [id number] Kam Gray MD /nt
[2019-09-01 08:07] LABS: METANEPHRINE-PL 16 pg/mL (0-62); NORMETANEPHRINE - PL 38 pg/mL (0-145)
== END 2019-08-26 13:36 | DRG 870 ==
LOC: ER 11:40 → ICU 14:07 → EROBS 14:07 → ICU 14:35 → 3W 08-21 18:32
PROVIDERS: Emergency Medicine; Hospitalist; Internal Medicine; Internal Medicine Pulmonary Disease; Nurse Practitioner Acute Care; Nurse Practitioner Family; Pediatrics; Specialist; ADMIT Hospitalist
PROC: 0BH17EZ Insertion of Endotracheal Airway into Trachea, Via Natural or Artificial Opening (ICD-10-PCS; principal; 2019-08-14)
PROC: 5A1955Z Respiratory Ventilation, Greater than 96 Consecutive Hours (ICD-10-PCS; principal; 2019-08-14)
PROC: 30233K1 Transfusion of Nonautologous Frozen Plasma into Peripheral Vein, Percutaneous Approach (ICD-10-PCS; principal; 2019-08-14)
PROC: 02HV33Z Insertion of Infusion Device into Superior Vena Cava, Percutaneous Approach (ICD-10-PCS; principal; 2019-08-14)
PROC: 0BD68ZX Extraction of Right Lower Lobe Bronchus, Via Natural or Artificial Opening Endoscopic, Diagnostic (ICD-10-PCS; 2019-08-15)
PROC: 0B9D8ZX Drainage of Right Middle Lung Lobe, Via Natural or Artificial Opening Endoscopic, Diagnostic (ICD-10-PCS; 2019-08-15)
PROC: 0GBG3ZX Excision of Left Thyroid Gland Lobe, Percutaneous Approach, Diagnostic (ICD-10-PCS; 2019-08-25)
DX: A41.9 Sepsis, unspecified organism (principal); J96.21 Acute and chronic respiratory failure with hypoxia; G92 Toxic encephalopathy; I50.33 Acute on chronic diastolic (congestive) heart failure; J96.22 Acute and chronic respiratory failure with hypercapnia; J18.1 Lobar pneumonia, unspecified organism; R04.2 Hemoptysis; D68.9 Coagulation defect, unspecified; D68.51 Activated protein C resistance; N17.9 Acute kidney failure, unspecified; K56.7 Ileus, unspecified; M06.9 Rheumatoid arthritis, unspecified; R65.20 Severe sepsis without septic shock; G89.4 Chronic pain syndrome; I48.0 Paroxysmal atrial fibrillation; D64.9 Anemia, unspecified; E04.1 Nontoxic single thyroid nodule; E04.2 Nontoxic multinodular goiter; E27.9 Disorder of adrenal gland, unspecified; I27.20 Pulmonary hypertension, unspecified; D69.6 Thrombocytopenia, unspecified; I11.0 Hypertensive heart disease with heart failure; E66.9 Obesity, unspecified; J43.9 Emphysema, unspecified; K59.00 Constipation, unspecified; Z87.891 Personal history of nicotine dependence; Z88.6 Allergy status to analgesic agent; Z99.81 Dependence on supplemental oxygen; Z82.49 Family history of ischemic heart disease and other diseases of the circulatory system; Z68.34 Body mass index [BMI] 34.0-34.9, adult
CPT/HCPCS: 10078; 10779; 10879; 27000; 85076

== ENCOUNTER 2019-08-25 09:05 | Inpatient (IN) | payer OTHER ==
[~2019-08-25] VITALS: Ht 160 cm; Wt 97.3 kg
[2019-08-26] MEDS ORDERED: LIPITOR 20 MG T20 M1 PO (10:23)
[2019-08-26] MEDS ORDERED: FLECAINIDE ACET50 M1 PO (10:23)
[2019-08-26] MEDS ORDERED: COUMADIN 4 MG TA4 M1 PO (10:23)
[2019-08-26] MEDS ORDERED: PERCOCET PO (10:33)
[2019-08-26] MEDS ORDERED: METHADONE HCL 110 MG PO (10:33)
[2019-08-26] MEDS ORDERED: PULMICORT0.5 MG/21 INH (10:44)
[2019-08-26] MEDS ORDERED: LASIX 40 MG TAB40 MG PO (10:44)
[2019-08-26] MEDS ORDERED: SENNA-TIME S T1 EACH PO (10:45)
[2019-08-26] MEDS ORDERED: PREDNISONE 20 M20 MG PO (10:46)
[2019-08-26] MEDS ORDERED: LEVAQUIN 750 M750 MG PO (10:48)
[2019-08-26] MEDS ORDERED: PROTONIX40 M3 PO (10:49)
[2019-08-26 13:40] VITALS: BP 135/66
--- NOTE | 2019-08-26 14:31 | NUR ---
PT ARRIVED TO UNIT EXTREMELY ANXIOUS, AND IMMEDIATELY PLACED ON O2 AT THE WALL. DURING ASSESSMENT, PT WAS VERY ANXIOUS, C/O BEING HOT, BUT WHEN ROOM TEMP TURNED DOWN AND FAN PLACED, C/O BEING TOO COLD, STATED THAT SHE HAD TO GO HOME NOW BECAUSE SHE COULDN'T STAND BEING IN THIS ROOM IT IS TOO SMALL. PT STATED THAT SHE WOULD BE OK AT HOME BECAUSE HER DAUGHTER COULD TAKE CARE OF HER. NOTED SEVERE MEMORY AND COGNITIVE DEFICITS WELL RESTLESSNESS BUT NO ATTEMPTS TO GET OOB WITHOUT ASSIST. PT WAS INCONT OF BLADDER IN THE BED, THEN CALMED CONSIDERABLY WHEN A FAMIILIAR AIRPORT CONTROL OPERATOR CAME TO THE ROOM TO ASSIST HER. PT WAS ASSISTED TO THE WITH MOD ASSIST PIVOT TRANSFER AND BRIEF PLACED, THEN PT TAKEN TO THE DINIG ROOM. PT'S NURSE AND PHYSICAL THERAPIST WERE ALERTED TO HER PRESENT LOCATION, AND PT IS MORE CALM IN DINING ROOM, WATCHING TV.
[2019-08-26 19:42] VITALS: BP 147/60
--- NOTE | 2019-08-27 02:35 | NUR ---
ASSUMED CARE @ 08/26/19 @ 19:20. A&OX2. DAUGHTER @ BEDSIDE. CONFUSION AND COGNITIVE DEFICIT NOTED. PATIENT REQUESTING TO GET DRESSED AND PUT SHOES ON. PATIENT ORIENTED TO TIME OF DAY AND HOSPITAL GOWN CHANGED INTO A CLEAN HOSPITAL GOWN. NEW ORDER FOR METHADONE HCL PROVIDED @ HS. MEDS TAKEN ONE TABLET AT A TIME PO WITH THIN WATER. LUNGS DIMINISHEDD IN LOWER [place]. PATIENT AND FAMILY MEMBER REQUESTING TO KNOW WHEN SHE WILL BE D/C. ALSO REQUESTING APRIL BANDAGE FOR R HAND WITH BRACHIAL PLEXIS INJURY. BED IN LOW POSITION, BED ALARM SET, CALL LIGHT WITHIN REACH, WILL CONTINUE 1 HOUR ROUNDING FOR PATIENT SAFETY.
[2019-08-27 05:18] LABS: CREATININE 0.5 mg/dL (0.6-1.0); POTASSIUM 3.7 mmol/L (3.5-5.1)
[2019-08-27 05:19] LABS: PROTIME 20.7 Seconds (9.3-11.4)
[2019-08-27 06:30] LABS: HEMATOCRIT 31.2 % (37.0-47.0); HEMOGLOBIN 10.3 gm/dL (12.0-15.0); MCH 31.3 pg (26.0-34.0); MCHC 33.1 g/dL (28.0-37.0); MCV 94.8 fL (80.0-100.0); RBC 3.29 mil/uL (4.20-5.00); RDW 14.2 % (10.5-14.5); WBC 9.6 thou/uL (4.0-11.0)
[2019-08-27 09:38] VITALS: BP 141/103
--- NOTE | 2019-08-27 11:52 | NUR ---
Nutrition: RD recieved consult via rehab admission order, no reason stated. Poor intake recently was documented in nsg admission assessment. Admit to rehab with acute encephalopathy, hypoxic vs metabolic. Familiar with pt from acute admit w/ respiratory failure and need for enteral nutrition. Unable to speak with pt. Nsg reports need for pain meds, was sleeping/unable to wake. UBW 220#. Current wt down 6# or 2% within the past week. BMI 38, obesity class 2. PO intake average 50% meals past 5 days. 08/26 PO 60-85% meals so improved. Requires mechanically altered chopped diet. RD will follow for need to add supplements and for consistent improvement in % intake of meals. Otherwise place pt as low nutrition risk.
[2019-08-27 13:55] VITALS: BP 142/54
--- NOTE | 2019-08-27 14:23 | NUR ---
chart review, cm notified by nurse construction supervisor/carpenter that rola gave verb ok with be able to speak with sister dominga and gerry at bedside. rola resting in be with eyes closed, o2 per nasal hailey. noted in chart that pt lives with daughter joi. has cane, walker and home o2 from [facility]. been to skilled rehab at [facility] past. [facility] owns [phone] to keep updated on dc. unable to visit with pt rt resting with eyes closed. intro to cm, transition of care, home health, and team meetings to dominga and gerry. will cont following as needed for dc needs.
--- NOTE | 2019-08-27 14:25 | NUR ---
PATIENT AWAKENED TO VERBAL STIMULUS, AND ANSWERED THE QUESTION, "WHO IS IN YOUR ROOM VISITING RIGHT NOW?" PT ABLE TO IDENTIFY SISTERS LETY AND ROMI. PT ANSWERED THEIR QUESTIONS REGARDING HOW SHE WAS FEELING AND WHAT SHE DID TODAY, AND WHEN NURSE RAILROAD TRACK REPAIR SUPERVISOR ASKED PT IF HER MEDICAL INFORMATION COULD BE SHARED WITH LETY AND ROMI, SHE STATED, "YES." SISTERS EXPRESSED CONCERN REGARDING PT'S LEVEL OF SLEEPINESS, AND REQUESTED INFORMATION ABOUT WHAT MEDS SHE RECEIVED THIS MORNING, AND WHY. THEY ALSO SPOKE WITH DR. WALKER AND DR. TIPTON, REQUESTING THAT CHANGES BE MADE TO MEDICATIONS TO REDUCE THE RISK OF SEDATION. SISTER ROMI ASKED DR. TIPTON ABOUT THE BIOPSY RESULTS, AND DR. TIPTON ANSWERED ALL OF HER QUESTIONS. PER PT'S REQUEST YESTERDAY, TALIA WAS REMOVED FROM THE LIST OF APPROVED CONTACTS, AND PER DISCUSSION WITH PT TODAY, SISTERS LETY AND ROMI HAVE BEEN ADDED TO THE LIST OF APPROVED CONTACTS AND GIVEN THE CODE 4522 TO ALLOW THEM TO GET INFORMATION OVER THE PHONE.
--- NOTE | 2019-08-27 15:57 | NUR ---
PATIENT HAS BEEN MOVED TO A LARGER ROOM PER HER REQUEST YESTERDAY AND TODAY. EXPLAINED THIS MOVE TO THE PATIENT IN THE PRESENCE OF HER SISTERS, BUT DID NOT HAVVE A ROOM # AT THAT TIME. ROOM 511 HAS BEEN VACATED NOW. AND PT IS UP IN THE DIING ROOM WHILE HER PERSONAL EFFECTS ARE MOVED TO ROOM 511. ATTEMPTED TO REACH THE PT'S DAUGHTER ORALIA AT BOTH NUMBERS THAT WE HAVE IN THE SYSTEM FOR HER, BUT ONE NUMBER WENT TO A VOICEMAIL OF A MALE PERSON WHO STATED FOR THE CALLER TO NOT LEAVE A MESSAGE AND TO PLACE HIM ON A "DO NOT CALL" LIST. THE SECOND NUMBER RECALLED IN THE ADMISSION ASSESSMENT WAS CALLED, AND A VOICEMAIL (GENERIC) WAS LEFT FOR THE PERSON TO CALL THE NURSE'S STATION REGARDING HER FAMILY MEMBER IN THE HOSPITAL. PT DID HAVE ANOTHER SHORT SESSION WITH PHYSICAL THERAPY, AND IS SITTING IN THE DINING ROOM CURRENTLY.
--- NOTE | 2019-08-27 18:41 | NUR ---
ASSUMED CARES AT 1430, PT WALKING WITH PT. SAT IN THE DINING AREA AFTER PT UNTIL DINNER TIME ( ASKED MULTIPLE TIMES IF SHE WANTED TO LAYDOWN OR GO TO HER ROOM BUT SHE SAID NO). ATE 80% OF HER DINNER. SPILLED WATER (ACCIDENTLLY) ALL OVER THE FLOOR AND ONTO HER FEET, FEET DRIED AND SOCKS CHANGED. PT TRANSFERRED TO ROOM 511, FAMILY CALLED AND LEFT A VOICEMAIL. REPORT GIVEN TO ONCOMING SHIFT. FALL PRECAUTIONS IN PLACE. CALL LIGHT WITHIN REACH
--- NOTE | 2019-08-27 18:41 | NUR ---
ASSUMED CARE OF PT AT 0715. PT ALERT AND WORKING WITH OT. PT ON TOILET CRYING AND SAYING "MY HAND HURTS", WHEN THIS NURSE ASKED PT TO RATE PAIN ON SCALE OF 0-10 PT RESPONDED WITH "IT HURTS" PT WAS GRIMICING AND CRADLING RIGHT ARM, ROCKING BACK AND FORTH ON THE TOILET, PT UNABLE TO RATE PAIN. NURSE REQUESTED PAIN MEDICATION FROM PHARMACY AT THAT TIME IT WAS NOT AVAILABLE ON UNIT. PT WAS ALSO ASKING QUESTIONS REPEATEDLY AND STATED "I CAN'T DO THIS", "I NEED TO LEAVE", "I CAN'T STAY HERE". PT RELUCTANT TO WORK WITH THERAPY, CRYING, ROCKING BACK AND FORTH AND AND MADE SEVERAL ATTEMPTS TO CRAWL INTO BED DURING ASSESSMENT AND CARES. THIS NURSE OBTAINED ORDERED LORAZEPAM FOR ANXIETY. AT AT APPROXIMATELY 1045, NURSE CHECKED ON PT WHO REPORTED NAUSEA, WAS BENT OVER THE BEDSIDE TABLE WITH EMESIS BUCKET, AND STILL REPORTED THAT SHE WAS HAVING PAIN IN HER RIGHT HAND. NURSE OBTAINED ORDERED PRN PAIN MEDICATION AND NEW ORDERS FOR ZOFRAN. WHEN PT WAS RECHECKED AT APPROXIMATELY 1140 PT WAS BEING ASSISTED INTO BED BY INSTRUMENT TECHNICIAN AND WHEN ASKED IF HER NAUSEA AND PAIN HAD RESOLVED, PT DID NOT RESPOND. PT FELL ASLEEP DURING ASSESSMENT. RESPIRATIONS 14, HR 62 AT THAT TIME. PT OPENED EYES TO VERBAL STIMULI, BUT QUICKLY FELL ASLEEP AND DID NOT RESPOND TO QUESTIONS. PT NOT LUNCH HELD AT THAT TIME DUE TO LETHARGY. SISTERS ON UNIT AT APPROXIMATELY 1215, EXPRESSED CONCERNS ABOUT SEDATION. SISTERS NOT LISTED DPOA AND NOT LISTED CONTACTS. REPORTED CONCERNS TO MAI, NURSE COURT REGISTRY OFFICER.
[2019-08-27 19:41] VITALS: BP 133/66
--- NOTE | 2019-08-28 02:13 | NUR ---
picc line dcd by IV nurse earlier in shift. dressing in place intact. will continue to monitor.
--- NOTE | 2019-08-28 03:55 | NUR ---
assumed care at approx 1900 evening 08/27. pt sitting up in w/c at change of shift. assisted pt into bed and into gown. pt fell asleep early and has been sleeping soundly since hs. pt did awaken for hs meds and took without difficulty. pt assisted with turning and repositioning. 02 at 4l per n/c. bed alarm on, call light in reach. hourly rounding. will continue to monitor.
[2019-08-28 05:39] LABS: INR 1.7; PROTIME 18.2 Seconds (9.3-11.4)
[2019-08-28 08:30] VITALS: BP 128/75
--- NOTE | 2019-08-28 10:04 | HC ---
[facility] [place] [address] CONSULTATION Name: DAVID VINCENT Room #: 511-P [facility] IN M.R.#: [id number] Admission: 08/26/19 Attend Phys: Kam Gray MD Discharge: Date of : 50 Report #: [id number] THIS REPORT FOR: //name// CC: Kam Hunter DATE OF SERVICE: 08/27/2019 ENDOCRINE CONSULTATION NOTE REASON FOR CONSULTATION: Multinodular goiter and left adrenal mass. HISTORY OF PRESENT ILLNESS: This is a 69-year-old female patient whose medical background is significant for multiple medical issues, including COPD, congestive heart failure, atrial fibrillation and obstructive sleep apnea. The patient was admitted to [facility] primarily due to pulmonary issues, including pneumonia and respiratory failure. During that hospital stay, the patient was worked up with a variety of imaging studies, which accidentally identified a multinodular goiter. This was later on verified with a dedicated thyroid ultrasound. Her thyroid ultrasound described multinodular goiter changes with a right-sided thyroid nodule that measures 1.3 x 1.2 x 1.0 cm, left thyroid nodule that measures 1.5 x 1.7 cm and an isthmus nodule that measures 1.9 x 1.4 x 1.8 cm. Upon discussing these findings with the patient, she explained that she has not had a prior history of thyroid disease and denied having had issues with compressive symptoms or neck pain over the past several months. The patient is not aware of a family history of thyroid disease. Also, while she was being imaged for her pulmonary issues, the patient was identified as having a left-sided adrenal mass. This was worked up with an adrenal-dedicated MRI that did confirm the presence of a left adrenal gland mass that measures 1.4 x 1.4 x 1.6 cm with the characteristics of a benign adenoma. Again, the patient had no prior knowledge of having had an adrenal mass and has not given an outlook of episodic palpitations, flushing, resistant hypertension or significant body weight changes over the past several months. The patient's active issues otherwise include hyperlipidemia for which she is treated with atorvastatin 20 mg daily, as well as hypertension for which she receives furosemide. REVIEW OF SYSTEMS: CONSTITUTIONAL: Fatigue, tiredness, but no fever or significant body weight changes. PULMONARY: Shortness of breath and cough, but no hemoptysis. CARDIAC: Occasional palpitations, no chest pain, lower extremity swelling, dyspnea on exertion or orthopnea. GASTROINTESTINAL: Occasional abdominal distention, nausea, but not vomiting, no [address] [address] CONSULTATION Name: DAVID VINCENT Room #: 511-P [facility] IN [facility].#: [id number] Admission: 08/26/19 Attend Phys: Kam Gray MD Discharge: Date of : 50 Report #: [id number] hematemesis. NEUROLOGY: Chronic pain in her right arm due to brachial plexus injury, otherwise occasional lightheadedness, dizziness, but without syncope, loss of consciousness or seizure activity. MUSCULOSKELETAL: Diffuse aches, arthralgias, myalgias. The patient has baseline issues with fibromyalgia. SKIN: Negative for rash, ulceration or other major skin changes. Otherwise, review of systems noncontributory other than those mentioned in HPI. PAST MEDICAL HISTORY: 1. Multinodular goiter as above. 2. Left adrenal mass as above. 3. Chronic obstructive pulmonary disease. 4. Congestive heart failure. 5. Atrial fibrillation. 6. Right brachial plexus injury. 7. Fibromyalgia. 8. Ovarian cyst. 9. Rheumatoid arthritis. 10. Anemia. 11. Obstructive sleep apnea. REPORTED MEDICATIONS: Folic acid 1 mg daily, atenolol 50 mg b.i.d., amlodipine 10 mg daily, potassium 20 mEq daily, Zoloft 50 mg daily and atorvastatin 20 mg daily. ALLERGIES: MORPHINE. FAMILY HISTORY: Noncontributory. SOCIAL HISTORY: The patient denies active use of tobacco, alcohol or illicit drugs. PHYSICAL EXAMINATION: GENERAL: This is a female patient who is not in apparent pain or distress. VITAL SIGNS: Blood pressure is 141/103 mmHg, heart rate is 71 beats per minute, respirations 22 per minute, temperature 36.7 degrees. CONSTITUTIONAL: The patient appears somewhat uncomfortable, but not in distress. HEENT: Anicteric sclerae. Intact extraocular motions. NECK: Supple, without JVD, carotid bruits or lymphadenopathy. Thyroid exam is noted for right thyroid fullness, slight discomfort, but no alexsander tenderness. No associated lymphadenopathy. CHEST: Noted for diminished air entry bilaterally with scattered rales, rhonchi and wheezes. [address] [address] CONSULTATION Name: DAVID VINCENT Room #: 511-P ADM IN M.R.#: [id number] Admission: 08/26/19 Attend Phys: Kam Gray MD Discharge: Date of : 50 Report #: [id number] HEART: Regular rate and rhythm without murmurs or gallops. ABDOMEN: Slightly distended, but not tense, slightly uncomfortable to deep palpation in a generalized fashion. No guarding. She has active bowel sounds. EXTREMITIES: Lower extremity exam is noted for ankle edema. No skin breaks or other deformities. NEUROLOGIC: Awake, alert and oriented to time, place and person. The remainder of her examination is nonfocal other than for sensory deficits over the lower extremities. The patient does not like to utilize or move her right arm due to pain. PSYCHIATRIC: Flat mood and affect, minimally interactive, clearly not interested in giving lengthy answers. LABORATORY RESULTS: White blood count 9.6, hemoglobin 10.3, hematocrit 31.2, platelets 227, creatinine 0.5, BUN 27, GFR 122, calcium 9.0. Sodium 139, potassium 3.7, chloride 101, CO2 of 31, anion gap 7, BUN 27, creatinine 0.5, lipase 51. Amylase 27, total bilirubin 0.3, alkaline phosphatase 71, ALT 17, total protein 6.7, albumin 3.1. EGFR 122. Ammonia 29. Lactic acid 0.6. CPK 445. Free T4 of 1.1. BNP 1337. INR 2.0. White blood count 9.6, hemoglobin 10.3, hematocrit 31.2, platelets 227, creatinine 0.9. TSH 1.42, 24-hour urine studies are noted for normal VMA. Metanephrines and free cortisol are pending. Plasma metanephrine pending. Aldosterone was less than 1. ASSESSMENT AND PLAN: 1. Multinodular goiter. As noted in the detailed description in the patient's HPI, she was found to have a multinodular goiter. Based on the findings, her isthmus thyroid nodule was selected for further evaluation with an FNA, which she has undergone a few days ago uneventfully. Her FNA cytopathology report was consistent with a benign follicular nodule. Given this benign outlook and the lack of compressive symptoms, the patient can be elected for clinical and ultrasonographic followup in 6 months from now. 2. Left adrenal mass. This was also an accidental find. Her adrenal-dedicated MRI study confirmed the presence of this mass and labeled it as a benign-appearing adenoma and it was actually of a smaller size at 1.6 cm. The patient's functional endocrine assessment of this mass has been collected, but her 24-hour urine studies are predominantly pending other than the VMA that returned and was negative. Her serum aldosterone was negative as well. The patient does not give a clinical outlook of a functional adrenal lesion and once the nonfunctional outlook of this lesion is confirmed, she would be safely elected for annual clinical and radiologic monitoring of this mass. 3. Hypertension. The patient's level of blood pressure control is currently mostly within reasonable limits. She is on atenolol and amlodipine, and she is to continue with the same. 4. Hyperlipidemia. The patient is maintained on a regimen of atorvastatin therapy and she tolerates it well. [place] [address] CONSULTATION Name: DAVID VINCENT Room #: 511-P [facility] IN M.R.#: [id number] Admission: 08/26/19 Attend Phys: Kam Gray MD Discharge: Date of : 50 Report #: [id number] I certainly appreciate this consultation. <ELECTRONICALLY SIGNED> By: Dorian Chong MD 08/28/19 1004 [id number] Dorian Chong MD /nt
--- NOTE | 2019-08-28 10:12 | H ---
[facility] [place] [address] HISTORY AND PHYSICAL Name: DAVID VINCENT Room #: 511-P ADM IN M.R.#: [id number] Admission: 08/26/19 Attend Phys: Kam Gray MD Discharge: Date of : 50 Report #: [id number] THIS REPORT FOR: //name// CC: Kam Hunter DATE OF SERVICE: 08/26/2019 NOTE: I am covering for Dr. Kam Gray and therefore completing this history and physical for him. He will be returning to the rehabilitation vides on 08/30/2019. CHIEF COMPLAINT: Weakness. HISTORY OF PRESENT ILLNESS: The patient is a very pleasant 69-year-old right-hand dominant female, who was admitted to [facility] with a COPD exacerbation and pneumonia. There was concern about her cognition and she was diagnosed with an acute encephalopathy, hypoxic versus metabolic. She was found to have oxygen saturations that were in the 80s. She was also found to have a multilobar pneumonia and hemoptysis, requiring intubation. Her hospital course was complicated by the encephalopathy. Neurology evaluated her. She was treated for a paroxysmal atrial fibrillation. Additional issues include [id number] diastolic heart failure with cardiology involved in her care. She also has acute renal insufficiency, which has resolved. There were plans for an ultrasound of the thyroid and a biopsy. Additionally, she has factor V Leiden deficiency. She was evaluated for inpatient rehabilitation by Dr. Gray and found to be an appropriate candidate for this level of care. Secondary to a decline in her overall function and the need for rehabilitation management of her complex medical condition as outlined above, she is now being admitted to the rehabilitation program for comprehensive therapies. PAST MEDICAL HISTORY: As above, also COPD premorbidly on 4 liters of oxygen, prior history of pneumonias, rheumatoid arthritis, atrial fibrillation, factor V Leiden, prior right brachial plexus injury, which appears to be the upper plexus, significant weakness of that right upper extremity. MEDICATIONS: Reviewed. Please see the written documentation of this history and physical. SOCIAL HISTORY: Lives in a ranch style home with her daughter as well as her daughter's boyfriend. There are no stairs to climb in that home. Her daughter works during the day. [facility] [address] [place] [address] HISTORY AND PHYSICAL Name: DAVID VINCENT Room #: 511-P [facility] IN .R.#: [id number] Admission: 08/26/19 Attend Phys: Kam Gray MD Discharge: Date of : 50 Report #: [id number] FUNCTIONAL HISTORY: She states that she walked without an assistive device before admission, but does say that she has a rolling walker. She states that she was able to drive. FAMILY HISTORY: The patient denies neurological issues. REVIEW OF SYSTEMS: As above. Specifically, she denies chest pain, shortness of breath, fevers, chills, headaches, bowel or bladder changes. Otherwise, the remainder of the 12-point review is negative except for what was stated above. PHYSICAL EXAMINATION: GENERAL: No acute distress. Well-developed, well-nourished, afebrile. CARDIOVASCULAR: Pulses are 2+ and irregular. LUNGS: Aerating fairly well. She has oxygen by nasal cannula. No dyspnea on exertion. ABDOMEN: Soft, nontender, nondistended, positive bowel sounds. EXTREMITIES: Calves are nontender. Homans sign is negative. LYMPHATICS: No cervical adenopathy. MUSCULOSKELETAL: Functionally, she has very poor abduction of the right shoulder, especially the C5 innervated musculature including biceps and deltoid and has difficulty supinated the arm. She has 4/5 strength in the lower extremities proximally and distally. Tone is within normal limits. There is no muscle atrophy. She does require moderate assistance to transfer to the standing position from the sitting position and she requires moderate assistance to ambulate with a rolling walker. SKIN: Intact. IMPRESSION: Mobility and self-care deficits in the 69-year-old right-hand dominant female secondary to: 1. Toxic metabolic/hypoxic encephalopathy. 2. Previous history of right brachial plexopathy with upper trunk involvement. 3. Multilobar pneumonia, improving. 4. Paroxysmal atrial fibrillation, ongoing problem. 5. Cblvg-lp-ixorldg diastolic heart failure. 6. Acute kidney injury, resolved. 7. Thyroid nodules. 8. Factor V Leiden deficiency. 9. Rheumatoid arthritis. 10. Chronic obstructive pulmonary disease, requiring supplemental oxygenation premorbidly on 4 liters. 11. Former history of tobacco abuse, quit greater than 1 year ago. PLAN: 1. Admit to the rehabilitation unit for comprehensive therapies. 2. Please see the plan of care and individualized overall plan of care for further details of this admission. [address] [address] HISTORY AND PHYSICAL Name: DAVID VINCENT Room #: 511-P ADM IN M.R.#: [id number] Admission: 08/26/19 Attend Phys: Kam Gray MD Discharge: Date of : 50 Report #: [id number] 3. Consultations to the hospitalist medicine group to help manage her care. POST-ADMISSION PHYSICIAN EVALUATION: A rehabilitation admission is medically necessary due to the multiple comorbidities that have been mentioned above. There are no relevant changes since the preadmission screen. She will require management of her complex case, which includes the brachial plexopathy, her oxygen needs, and confusion issues. It is likely that she will have difficulty swallowing and speech therapy will need to help her with this. It is also important for her to have Internal Medicine follow her heart rate, which has gone into atrial fibrillation and she appears to be in atrial fibrillation at the current time, but not with rapid ventricular response. This needs to be followed. She has the risk for clinical complications including falls, hypoxia, injury to herself due to poor safety awareness, exacerbation of her COPD, respiratory failure, exacerbation of her congestive heart failure, further debilitation and even . She does have poor endurance, poor functional mobility, and self-care abilities. INDIVIDUALIZED OVERALL PLAN OF CARE: Medical necessity of this admission is as above. She has a good prognosis to recover with the appropriate interventions including PT, OT, and ST. She will need to work diligently with these disciplines. Unfortunately, she is stating that she wants to go home in a few days and I discussed with her the importance of sticking it out with the therapies to get her maximal improvement. She will need at least 5 days a week of therapy 3 hours a day of each discipline. Her estimated length of stay is 10-14 days. She will likely improve to a level of modified independent with mobility and the activities of daily living and be able to return home with her family if she is able to continue to work hard with the therapy team over the next 10-14 days. <ELECTRONICALLY SIGNED> By: Bobby Pringle DO 08/28/19 1012 [id number] Bobby Pringle DO /rahul
--- NOTE | 2019-08-28 17:07 | NUR ---
ASSUME PT CARE AT 0700. REPORTS SLEPT FAIR LAST NIGHT.HAS CHRONIC RHEUMATOID ARTHRITIS ON RIGHT HAND. RATES PAIN 7/10, METHADONE GIVEN SCHEDULE. OBTAINED ORDER FOR PRN TYLENOL FOR BREAK THROUGH PAIN. PAIN DOWN TO 4/10 TOLERATE. OT GAVE BATH. HAS SOME REDNESS AND MOISTER UNDER BREASTS. APPLY INNER DRY. ENCOURAGED PT TO TURN Q2HR WHEN IN BED. PT ALERT AND ORIENTED X4, IGIUGIG AND AGITATED AT TIME. OFFERED SUPPORTIVE CARE. ENCOURAGED PT TO VOICE HER NEEDS. UP WITH ASSIST TO BSC. VSS ON 4L OF OXGYGEN. REASSESSMENT PER CHART. MEDS GIVEN ORDERED WITH APPLE SAUCE. FAMILY AT BEDSIDE. LAST BM WAS 4 DAYS AGO ON SENNA 4TABLETS BM NO BM RESULT. BS PRESENT. NOTIFIED DOCTOR AARON AND OBTAINED ORDER FOR MIRALAX BID, HOLD IF LOOSE STOOL AND BISACODYL SUPP PRN. NOTIFIED DR. WALKER INR 1.7 CONTINUE WITH COUMADIN 4MG AND DAILY INR. ENCOURAGED PT TO DO DEEP BREATHING AND GETTING UP. PT REFUSES TO GET UP AT TIME. FALL PRECAUTION IN PLACE. CALL LIGHT WITHIN REACH. WILL GIVE REPORT TO NIGHT NURSE TO CONTINUE TO MONITOR.
[2019-08-28 19:25] VITALS: BP 136/74
--- NOTE | 2019-08-29 02:50 | NUR ---
ASSUMED CARE AT APPROX 1900 EVENING 08/28. PT LYING IN BED WITH HEAD OF BED ELEVATED DOZING OFF AND ON. PT AWOKE TO TAKE HS MEDS WITHOUT DIFFICULTY. PT STATED SHE HAD A GOOD DAY WITH THERAPY. PT APPEARS TO BE SLEEPING SOUNDLY WITH HOURLY ROUNDIMG CHECKS. BED ALARM ON AND CALL LIGHT IN REACH. WILL CONTINUE TO MONITOR.
[2019-08-29 09:12] LABS: PROTIME 35.7 Seconds (9.3-11.4)
[2019-08-29 09:13] LABS: INR 3.4
[2019-08-29 10:22] VITALS: BP 131/74
--- NOTE | 2019-08-29 16:35 | NUR ---
ASSUMED CARE PF PT AT 0715. PT IS A&OX3. IS ON ROOM AIR, BUT MAY REQUIRE 3-4L/NC WITH ACTIVITY ACCORDING TO NIGHT NURSE. IS STABLE. REPORTS CHRONIC GENERALIZED PAIN & RIGHT WRIST PAIN. HAS SCHEDULED NORCOTIC & PRN TYLENOL. PT IS UP WITH MIN-MOD ASSIST OF 1, GB, WALKER. FALL PRECAUTIONS & HOURLY ROUNDING MAINTAINED. LABS & VITALS REVIEWED. PT IS CURRENTLY RESTING IN BED. CALL LIGHT WITHIN REACH. WILL CONTINUE TO MONITOR.
[2019-08-29 19:53] VITALS: BP 127/72
--- NOTE | 2019-08-30 02:45 | NUR ---
PT ALERT AND ORIENTED X 4. SEEMS CONFUSED AT TIMES. 02 ON AT 3L PER NC CONT. APRIL WRAP INTACT TO RIGHT WRIST. PT DENIES PAIN OR DISCOMFORT. SCHEDULED METHADONE GIVEN ORDERED. PT REFUSED DULCOLAX SUPP AT HS. HASN'T HAD A BM SINCE 08/25. SCHEDULED SENNA AND MIRALAX GIVEN AT HS. BED ALARM ON FOR SAFETY. PT APPEARS TO BE SLEEPING ON HOURLY ROUNDS.
[2019-08-30 05:59] LABS: PROTIME 58.8 Seconds (9.3-11.4)
[2019-08-30 06:02] LABS: INR 5.7
--- NOTE | 2019-08-30 06:18 | NUR ---
INR 5.7 THIS MORNING. CALLED TO GISELLE SCHAEFER NP WITH ORDER RECEIVED TO HOLD COUMADIN FOR TODAY. EMAR UPDATED.
[2019-08-30 08:00] VITALS: BP 123/60
--- NOTE | 2019-08-30 09:42 | NUR ---
ASSUMED CARE PF PT AT 0715. REPORTS SLEPT GOOD LAST NIGHT. NIGHT NURSE REPORT INR 5.7 AND HOLD COUMADIN TODAY. PT IS A&OX3. VSS ON 3L. B/P 127/72, HR 55. PT IS ON NORVASC 10MG, ATENOLOL 50MG, LASIX AND OTHERS SEE [place]. NOTIFIED MERYL AND OBTAINED PARAMETER FOR NORVAC AND ATENOLOL. HELD THESE PER MERYL REPORTS CHRONIC GENERALIZED PAIN & RIGHT WRIST PAIN. HAS SCHEDULED NORCOTIC & PRN TYLENOL. PT IS UP WITH MIN-MOD ASSIST OF TRUPTI Sweeney WALKER. OFFERED SUPPORTIVE CARE. ENCOURAGED PT TO VOICE HER NEEDS AND UP FOR MEALS INSTEAD OF LAYING DOWN. HER GOALS ARE TO CONTINUE WITH HER THERAPY TO GET STRONGER. PT IS WORKING WITH OT NOW. FALL PRECAUTIONS & HOURLY ROUNDING MAINTAINED. LABS & VITALS REVIEWED. PT IS CURRENTLY RESTING IN BED. CALL LIGHT WITHIN REACH. WILL CONTINUE TO MONITOR.
--- NOTE | 2019-08-30 11:21 | HC ---
[facility] [place] [address] CONSULTATION Name: DAVID VINCENT Room #: 511-P ADM IN M.R.#: [id number] Admission: 08/26/19 Attend Phys: Kam Gray MD Discharge: Date of : 50 Report #: [id number] THIS REPORT FOR: //name// CC: Kam Hunter DATE OF SERVICE: 08/28/2019 NEUROBEHAVIORAL STATUS EXAM AGE: 69. ATTENDING PHYSICIAN: Kam Gray MD INSURANCE FOLLOW UP SPECIALIST: Neftali De Oliveira, PhD CLINICAL PRESENTATION: The patient is a 69-year-old female admitted to the rehabilitation unit for a comprehensive inpatient rehabilitation program to improve functional mobility, activities of daily living and self care and cognitive functioning. Her initial admission to the [facility] was for COPD exacerbation and pneumonia. Concern in regard to cognition was noted and her diagnoses included acute encephalopathy, hypoxic versus metabolic. Her assessment on admission to the rehabilitation unit includes toxic metabolic/hypoxic encephalopathy, previous history of right brachial plexopathy with upper tract involvement, multilobar pneumonia, paroxysmal atrial fibrillation, acute on chronic diastolic heart failure, acute kidney injury, resolved, thyroid nodules, factor V Leiden deficiency, rheumatoid arthritis, COPD, requiring supplemental oxygenation premorbidly on 4 liters, former history of tobacco abuse with discontinuation of greater than 1 year. A complete description of her medical condition, history and medications can be found in her medical record. Neuropsychological consultation was requested to provide assistance in the assessment of cognitive and emotional status and to provide recommendations and services. Prior to this most recent admission, she was living at home with her daughter, her daughter's boyfriend and a nephew. The patient has one child. She is from a family with 4 brothers and 3 sisters. The patient is a high school graduate. 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 Her daughter indicates that she had been having problems with functioning prior to her hospitalization. Within the last 4-6 months, she has required assistance with the management of medication, finances and nutrition. However, she was occasionally doing cooking and is reported to have been driving. Her [facility] [address] [place] [address] CONSULTATION Name: DAVID VINCENT Room #: 511-P [facility] IN M.R.#: [id number] Admission: 08/26/19 Attend Phys: Kam Gray MD Discharge: Date of : 50 Report #: [id number] daughter indicated that she was primarily managing her own medication with only minimal assistance that was required. She was often left alone throughout the day. Her daughter also indicated that she had a period of delusional ideation and memory loss that included repeating herself during the period of time that preceded her hospitalization. TECHNIQUES UTILIZED: Clinical interview, review of medical records, staff consultation and behavioral observation, mini mental status exam 2 standard version, verbal fluency assessment and family interview -- daughter. EXAMINATION FINDINGS: The patient was alert and cooperative with the assessment. However, intermittent irritability was noted. She repoted that her symptoms include variability in memory, decreased appetite and insight. Inconsistency in the extent of assistance that was provided prior to her hospitalization is noted, as her daughter indicates providing more help than reported by the patient. Her performance on the MMSE 2 brief version was extremely low with a T score of 27 and percentile rank of 1. She was 3/3 for initial registration, 5/5 for orientation to time, 4/[address] and 0/3 for immediate recall of 3 items after a brief time delay and distraction. Subtests of standard version of the MMSE 2 were administered. The patient was not able to utilize her right hand, so any writing and drawing tasks were not administered. She was 0/5 for serial sevens, 2/2 for naming, 1/1 for repetition. She was 3/3 for auditory comprehension. She could read and follow single command. Performance in verbal fluency assessment was extremely low for category letter and total fluency. Letter fluency was a T score of 19, percentile rank of less than 1, category fluency was a T score 19, percentile rank of less than 1 and total fluency was a T score of 19 and percentile rank of less than 1. The patient is presenting with variability in her cognitive functioning. Impairment with memory, attention/concentration and executive functioning are suggested. Additionally, she has a chronic pain disorder and has been taking sedating medications including lorazepam and methadone. Psychiatric assessment suggested a generalized anxiety disorder with depression versus an adjustment disorder with depressed mood and resolving delirium. Hypoxia that is associated with respiratory failure may also be contributing to her presentation. DIAGNOSTIC IMPRESSION: [address] [address] CONSULTATION Name: DAVID VINCENT Room #: 511-P [facility] IN M.R.#: [id number] Admission: 08/26/19 Attend Phys: Kam Gray MD Discharge: Date of : 50 Report #: [id number] Delirium, acute -- mixed level of activity, possibly resolving. Neurocognitive disorder -- extent to be determined, likely in the moderate range. Unspecified depressive disorder with anxiety. RECOMMENDATIONS: The patient will likely benefit from a continued reduction in sedating medication. Use of an antidepressant medication will also be of benefit, example Cymbalta. Followup neuropsychological assessment would be of value to determine her level of cognitive functioning upon resolution of delirium and current medical crisis. The patient will require assistance in the management of medication, finances and nutrition in order to maintain safety. Driving should be discontinued pending a more thorough evaluation. Thank you very much for allowing me to provide a consultation on this patient. <ELECTRONICALLY SIGNED> By: Neftali De Oliveira, PhD 08/30/19 1121 [id number] Neftali De Oliveira, PhD /nt
[2019-08-30 11:44] LABS: FOLIC ACID 17.1 ng/mL (8.6-58.9)
[2019-08-30 19:05] VITALS: BP 140/63
--- NOTE | 2019-08-30 23:12 | NUR ---
PT ASSESSMENT DONE AND VSS. MEDICATION GIVEN AND WELL TOLERATED. FALL PRECAUTIONS IN PLACE. HOURLY ROUNDING DONE. CALL LIGHT IN REACH. SLEEPING WELL. WILL CONTINUE TO MONITOR.
[2019-08-31 06:05] LABS: ABSOLUTE NEUTROPHILS 4.2 thou/uL (1.4-8.2); BASOPHILS 0.7 % (0.0-2.0); EOSINOPHILS 2.7 % (0.0-3.0); HEMATOCRIT 32.5 % (37.0-47.0); HEMOGLOBIN 10.5 gm/dL (12.0-15.0); LYMPHOCYTES 17.4 % (24.0-44.0); MCH 31.1 pg (26.0-34.0); MCHC 32.3 g/dL (28.0-37.0); MCV 96.3 fL (80.0-100.0); MONOCYTES 7.5 % (1.0-8.0); PLATELET COUNT 184 thou/uL (150-400); POLYS 71.7 % (36.0-66.0); RBC 3.37 mil/uL (4.20-5.00); RDW 14.3 % (10.5-14.5); WBC 5.8 thou/uL (4.0-11.0)
[2019-08-31 06:16] LABS: PROTIME 63.1 Seconds (9.3-11.4)
[2019-08-31 06:20] LABS: CREATININE 0.8 mg/dL (0.6-1.0); MAGNESIUM 1.9 mg/dL (1.8-2.4); POTASSIUM 4.4 mmol/L (3.5-5.1)
[2019-08-31 06:25] LABS: INR 6.1
--- NOTE | 2019-08-31 06:42 | NUR ---
LAB CALLED THIS NURSE AT 0625 TO REPORT A CRITICAL VALUE OF 6.1 FOR INR. YASHIRA SCHAEFER CALLED AT 0630 TO REPORT AND GET ORDERS. ORDER RECEIVED TO HOLD COUMADIN TODAY AND HAVE SHRUB GROWER MERYL FOLLOW UP ON DAY SHIFT. WILL PASS ON TO DAY SHIFT.
[2019-08-31 08:00] VITALS: BP 147/65
--- NOTE | 2019-08-31 10:02 | NUR ---
received phone call from aramis pinedos with [facility], he stated he is going to stop by and visit with rola and discuss what is going on"/aramis. eileen passed on information to [employer] supervisor that she he will be coming to speak with rola today.
--- NOTE | 2019-08-31 15:33 | NUR ---
DISCHARGE PLANNING. ANTICIPATED DISCHARGE PLANNED FOR 09/03-09/06. PLAN IS FOR PATIENT TO DISCHARGE TO HOME WITH [facility]. PATIENT REFERRAL FAXED TO [facility] INTA[facility]. DELIO TO REVIEW REFERRAL AND NOTIFY CM. FOLLOWING TO ASSIST.
--- NOTE | 2019-08-31 17:12 | NUR ---
ASSUMED CARE AT 0700, SHIFT ASSESSMENT DONE, MEDS GIVEN, VSS. REPORTED PAIN, PRN PAIN MEDS GIVEN WITH SOME COMFORT. WORKED WITH THERAPHY, UP WITH STANDBY. WILL CONTINUE TO ASSESS AND ASSIST WITH ADLs NEEDED.
[2019-08-31 19:44] VITALS: BP 145/73
--- NOTE | 2019-08-31 23:31 | NUR ---
PT ASSESSMENT DONE AND VSS. MEDS GIVEN AND WELL TOLERATED. FALL PRECAUTIONS IN PLACE. HOURLY ROUNDING. CALL LIGHT IN PLACE. SLEEPING WELL. WILL CONTINUE TO MONITOR.
[2019-09-01 05:54] LABS: PROTIME 15.6 Seconds (9.3-11.4)
[2019-09-01 06:03] LABS: INR 1.5
--- NOTE | 2019-09-01 06:13 | NUR ---
CAPRICE FROM THE LAB CALLED THIS NURSE TO REPORT A CRITICAL VALUE OF 1.5 INR. YASHIRA SCHAEFER CALLED WITH REPORT. NO ORDERS RECEIVED. YASHIRA SHETH WILL FOLLOW UP ON DAYS.
[2019-09-01 07:00] VITALS: BP 142/67
--- NOTE | 2019-09-01 10:33 | NUR ---
ASSUMED CARE AT 0700. PATIENT IS ALERT AND ORIENTED X3. PATIENT TRUJILLO'S, INSIDE SALES ASSOCIATE ARE EQUAL. LUNGS ARE CLEAR AND DEMINISHED. ABD IS SOFT WITH BSX4. PATIENT C/O CONSTIPATION. PRN AND SCHEDULED LAXATIVES GIVEN . UP TO THE DINING ROOM WITH WALKER, GAIT BELT AND ASSIST OF 1 STAFF. MEDS TAKEN WITH APPLESAUCE TODAY. FALL AND SAFETY PROTOCOLS IN PLACE. C/O PAIN IN HER SHOULDER. MEDICATED WITH PRN PAIN MED. PATIENT IS UP WITH SBA WITH GAIT BELT AND WALKER. PATIENT CONTINUES TO PROGRESS SLOWLY TOWARDS D/C GOALS. WILL CONTINUE TO MONITER.
--- NOTE | 2019-09-01 14:11 | NUR ---
Patient participated in community reintegration on 09/01/19 with PHYSICAL THERAPY. Refer to documentation by PHYSICAL THERAPY.
--- NOTE | 2019-09-01 14:21 | NUR ---
cm followed up with pt to see if she knew what time her daughter joi was going to pick her up on " no you have to call her"/rola. cm left message for daughter joi to call cm back. will cont following as needed for dc needs.
[2019-09-01 19:53] VITALS: BP 136/66
--- NOTE | 2019-09-02 03:21 | NUR ---
APPRECIATES MIRALAX, SENNA AND OTHER MEDS WITH APPLESAUCE. UP TO BATHROOM WITH STANDBY ASSIST. ONE TIME DOSE OF LOVENOX GIVEN, PATIENT HAS HEARD OF FACTOR V LEIDEN. QUIET TONIGHT, WATCHING TV WHEN AWAKE
[2019-09-02 05:47] LABS: INR 1.1; PROTIME 11.5 Seconds (9.3-11.4)
[2019-09-02 09:00] VITALS: BP 109/64
--- NOTE | 2019-09-02 10:00 | NUR ---
cm visited with rola at bedside, let her know that cm has not been able to reach her daughter joi in order to finishing up dcp. " you mean you have not called her or she not calling you back?"/rola. education that cm has left many voice message requesting return call on dcp. pt had me call from bedside and cm still had to leave a message for joi.
--- NOTE | 2019-09-02 15:03 | NUR ---
ASSUMED CARE AT 0700. PATIENT IS ALERT AND ORIENTED X3. PATIENT TRUJILLO'S, SLAGGER ARE EQUAL. LUNGS ARE CLEAR AND DEMINISHED. PATIENT CONTINUES ON 02 AT 3L PER N/C. PATIENT IS SBA WITH GAIT BELT AND WALKER TO BATHROOM TO VOID AND HAVE LARGE BM. FALL AND SAFETY PROTOCOLS IN PLACE. UP IN RECLINER FOR BREAKFAST. C/O PAIN IN HER WRIST. MEDICATED WITH PRN PAIN MEDS. CONTINUES TO PROGRESS TOWARDS D/C GOALS. WILL CONTINUE TO MONITER.
[2019-09-02 15:10] LABS: URINE PROTEIN (MG/DL) 13.2 mg/dL (Not Estab.)
[2019-09-02 17:06] LABS: GLOBULIN TOTAL 2.5 g/dL (2.2-3.9); M-SPIKE Not Observed g/dL (Not Observed)
[2019-09-02 19:06] VITALS: BP 134/58
--- NOTE | 2019-09-02 22:46 | NUR ---
PT ASSESSMENT COMPLETED AND VSS. MEDS GIVEN ORDERED AND WELL TOLERATED. FALL PRECAUTIONS IN PLACE. PT DENIES NEEDS. SLEEPING WELL. WILL CONTINUE TO MONITOR FREQUENTLY.
[2019-09-03 02:06] LABS: ANGIOTENSIN CONVERTNG ENZ 25 U/L (14-82)
[2019-09-03 05:52] LABS: INR 1.1
[2019-09-03 08:00] VITALS: BP 132/62
--- NOTE | 2019-09-03 09:17 | NUR ---
ASSUMED CARE AT 0700. PATIENT IS ALERT AND ORIENTED X3, FORGETFUL AT TIME. REPORTS DIDN'T SLEEP WELL LAST NIGHT. DENIES NEED FOR SLEEPING AID. WILL BE DISCHARGE TOMORROW. UP TO DINNING ROOM FOR BREAKFAST AND WORKING WITH ST. REASSESSMENT PER CHART. ST WILL UPGRADE TO REGULAR DIET TODAY. REASSESSMENT PER CHART. LAST BM WAS YESTERDAY. HAS HX OF CONSTIPATION. CONTINUE TO BE ON MIRALAX AND TY SCHEDULED. C/O WRIST PAIN 5/10, PRN TYLENOL GIVEN WITH REGULAR MORNING MEDS. LOVENOX GIVEN, INR 1.1, WILL NOTIFY MERYL,MANAGER PRODUCT AND CONTINUE TO MONITOR FOR ANTICOAGULANT FOR AFIB.. LUNGS ARE CLEAR AND DEMINISHED. PATIENT CONTINUES ON 02 AT 3L PER N/C. PATIENT UP SBA WITH GAIT BELT AND WALKER, OFFER TOILETING FREQUENTLY. HAS STRESS INCONT AT TIME. FALL AND SAFETY PROTOCOLS IN PLACE. CONTINUES TO PROGRESS TOWARDS D/C GOALS. WILL CONTINUE TO MONITOR.
--- NOTE | 2019-09-03 13:57 | NUR ---
rola hitesh to dc home with daughter joi tomorrow 09/04/19. bedside nurse to fax dc orders and sum to [facility] (pt, ot, st , nursing, bath aid and sw ) at [phone]. pt daughter joi will be picking up pt on friday. left message with aramis owns with [facility] with dcp and date.
[2019-09-03 14:01] VITALS: BP 132/62
[2019-09-03 19:50] VITALS: BP 134/76
--- NOTE | 2019-09-04 01:32 | NUR ---
PATIENT ASSESSED AND IS ALERT X 4. SKIN WARM AND DRY. RESP EVEN AND UNLABORED. WILL BE DC IN AM. UP WITH 1 PERSON ASSIST. IV PRESENT. TAKES METHADONE. ASSIST TO BATHROOM AND GAIT BELT. INCONT AT TIMES. WEARS BREIFS. INSTRUCTED ON GIVING LOVENOX BUT PATIENT WAS NOT REALLY INTERESTED ON LEARNING. NO SKIN ISSUES. DID TAKES MEDS WHOLE WITH APPLESAUSE. RN WILL TEACH MORE IN AM ABOUT LOVENOX INJECTION PRIOR TO LEAVING. CONT PLAN OF CARE.NO EDEMA NOTED TO LOWER EXTREMITIES.
[2019-09-04 05:57] LABS: INR 1.2; PROTIME 12.2 Seconds (9.3-11.4)
[2019-09-04] MEDS ORDERED: LORAZEPAM 0.50.5 MG PO (07:06)
[2019-09-04] MEDS ORDERED: TYLENOL EXTRA500 MG PO (07:07)
[2019-09-04] MEDS ORDERED: ENOXAPARIN100 MG/11 SUBQ (07:07)
[2019-09-04 07:48] VITALS: BP 119/44
--- NOTE | 2019-09-04 07:56 | NUR ---
ASSUME PT CARE AT 0700. NIGHT NURSE SAID PT SLEPT WELL. DOESN'T INTERESTING IN LOVENOX INJECTION. INR IS 1.[address] ZIMMERMAN TO WORKING ON PT'S MEDS DISCHARGE AND DOCTOR IS AWARE PT DOESN'T LIKE TO TAKE LOVENOX UNLESS SHE HAS TO. DOCTOR SAID HE WILL LOOKING TO THAT. PT SAID HER DAUGHTER WILL PICK HER UP AROUND 11AM. WILL CONTINUE TO MONITOR.
[2019-09-04 11:37] VITALS: BP 132/62
[2019-09-04 13:00] VITALS: BP 132/62
== END 2019-09-04 12:53 | disposition home health service (06) | DRG 91 ==
LOC: RT 09:05
PROVIDERS: Internal Medicine; Nurse Practitioner; Nurse Practitioner Family; ADMIT Physical Medicine & Rehabilitation
DX: G93.1 Anoxic brain damage, not elsewhere classified (principal); J18.9 Pneumonia, unspecified organism; I50.33 Acute on chronic diastolic (congestive) heart failure; J96.21 Acute and chronic respiratory failure with hypoxia; J96.22 Acute and chronic respiratory failure with hypercapnia; N17.9 Acute kidney failure, unspecified; D68.51 Activated protein C resistance; K56.7 Ileus, unspecified; G47.33 Obstructive sleep apnea (adult) (pediatric); E04.2 Nontoxic multinodular goiter; E78.5 Hyperlipidemia, unspecified; M79.7 Fibromyalgia; M06.9 Rheumatoid arthritis, unspecified; N83.209 Unspecified ovarian cyst, unspecified side; D64.9 Anemia, unspecified; I48.0 Paroxysmal atrial fibrillation; R41.0 Disorientation, unspecified; R41.9 Unspecified symptoms and signs involving cognitive functions and awareness; G89.4 Chronic pain syndrome; J43.9 Emphysema, unspecified; R53.81 Other malaise; F41.1 Generalized anxiety disorder; E27.9 Disorder of adrenal gland, unspecified; F32.9 Major depressive disorder, single episode, unspecified; I11.0 Hypertensive heart disease with heart failure; Z88.6 Allergy status to analgesic agent; Z87.891 Personal history of nicotine dependence; Z87.820 Personal history of traumatic brain injury; Z79.899 Other long term (current) drug therapy; Z82.49 Family history of ischemic heart disease and other diseases of the circulatory system; Z82.5 Family history of asthma and other chronic lower respiratory diseases
CPT/HCPCS: 10112

== ENCOUNTER 2019-09-15 13:28 | Inpatient (IN) | payer OTHER ==
[~2019-09-15] VITALS: Ht 157.5 cm; Wt 92.1 kg
[~2019-09-15 13:28] MED LIST changes: +ENOXAPARIN100 MG/11 SUBQ; +LASIX 40 MG TAB40 MG PO; +LEVAQUIN 750 M750 MG PO; +LIPITOR 20 MG T20 M1 PO; +LORAZEPAM 0.50.5 MG PO; +METHADONE HCL 110 MG PO; +PERCOCET PO; +PROTONIX40 M3 PO; +PULMICORT0.5 MG/21 INH; +SENNA-TIME S T1 EACH PO; +TYLENOL EXTRA500 MG PO
[2019-09-15 13:30] VITALS: BP 135/55
[2019-09-15 14:03] LABS: ABSOLUTE NEUTROPHILS 3.4 thou/uL (1.4-8.2); BASOPHILS 0.7 % (0.0-2.0); EOSINOPHILS 1.1 % (0.0-3.0); HEMATOCRIT 28.2 % (37.0-47.0); LYMPHOCYTES 12.2 % (24.0-44.0); MCH 30.7 pg (26.0-34.0); MONOCYTES 7.5 % (1.0-8.0); PLATELET COUNT 204 thou/uL (150-400); POLYS 78.5 % (36.0-66.0); RBC 2.94 mil/uL (4.20-5.00); RDW 14.7 % (10.5-14.5); WBC 4.3 thou/uL (4.0-11.0)
[2019-09-15 14:12] LABS: URINE BILIRUBIN NEGATIVE (Negative); URINE BLOOD NEGATIVE (Negative); URINE CLARITY CLEAR; URINE COLOR YELLOW; URINE GLUCOSE-RANDOM* NEGATIVE (Negative); URINE KETONES NEGATIVE (Negative); URINE LEUKOCYTES-REFLEX NEGATIVE (Negative); URINE NITRITE-REFLEX NEGATIVE (Negative); URINE PROTEIN (DIPSTICK) NEGATIVE (Negative); URINE SPECIFIC GRAVITY 1.025 (1.005-1.035); URINE UROBILINOGEN 0.2 E.U./dl (0.2-1.0)
[2019-09-15 14:14] LABS: CALCIUM 8.8 mg/dL (8.5-10.1); CREATININE 0.7 mg/dL (0.6-1.0)
[2019-09-15 14:17] LABS: INR 4.5; PROTIME 46.2 Seconds (9.3-11.4)
[2019-09-15 14:24] LABS: TOTAL BILIRUBIN 0.2 mg/dL (<0.1-1.0); TOTAL PROTEIN 6.2 g/dL (6.4-8.2); TROPONIN-I 0.14 ng/mL (<0.06)
[2019-09-15 14:28] LABS: BE(vivo) 6.6 mmol/L (-2 to +3); HCO3 33.7 mmol/L (22.0-26.0); PCO2 63.8 mmHg (35.0-45.0); PO2 62.7 mmHg (80.0-100.0); pH 7.341 (7.360-7.450)
[2019-09-15 17:12] VITALS: BP 111/59
[2019-09-15 17:24] VITALS: BP 116/46
[2019-09-15 17:45] LABS: AMP/METHAMP Negative (Negative); BARBITURATES Negative (Negative); BENZODIAZEPINES Negative (Negative); COCAINE Negative (Negative); METHADONE POSITIVE (Negative); OPIATES Negative (Negative); PCP Negative (Negative)
[2019-09-15 18:20] VITALS: BP 103/54
--- NOTE | 2019-09-15 18:44 | NUR ---
PT ARRIVED TO UNIT FROM ED AT APPROX 1800 ACCOMPANIED BY ED STAFF. PT ALERT, ORIENTED X3. VSS. DENIES PAIN. O2 SATS WNL ON 5L O2. DENIES CP/SOB. ADMISSION COMPLETE WITH HELP FROM DAUGHTER. PT CONFUSED AT TIMES, FORGETS LIMITATIONS. TELE STRIP PRINTED AND DOCUMENTED. ADMISSION COMPLETE. PT UNABLE TO SIGN CONSENTS. PT CURRENTLY EATING DINNER IN ROOM WITH HELP FROM DAUGHTER. DENIES NEEDS/CONCERNS AT THIS TIME. WILL CONT MONITOR AND FOLLOW POC.
[2019-09-15 19:40] VITALS: BP 119/60
[2019-09-16 04:26] VITALS: BP 143/57
[2019-09-16 05:05] LABS: INR 3.1; PROTIME 32.1 Seconds (9.3-11.4)
[2019-09-16 05:06] LABS: ABSOLUTE NEUTROPHILS 2.5 thou/uL (1.4-8.2); BASOPHILS 0.5 % (0.0-2.0); EOSINOPHILS 2.4 % (0.0-3.0); HEMATOCRIT 25.3 % (37.0-47.0); HEMOGLOBIN 8.2 gm/dL (12.0-15.0); LYMPHOCYTES 17.7 % (24.0-44.0); MCH 30.7 pg (26.0-34.0); MCHC 32.2 g/dL (28.0-37.0); MCV 95.2 fL (80.0-100.0); MONOCYTES 10.6 % (1.0-8.0); PLATELET COUNT 174 thou/uL (150-400); POLYS 68.8 % (36.0-66.0); RBC 2.66 mil/uL (4.20-5.00); RDW 14.7 % (10.5-14.5); WBC 3.7 thou/uL (4.0-11.0)
[2019-09-16 05:08] LABS: CALCIUM 8.1 mg/dL (8.5-10.1); CREATININE 0.6 mg/dL (0.6-1.0); MAGNESIUM 1.7 mg/dL (1.8-2.4); POTASSIUM 3.4 mmol/L (3.5-5.1); TROPONIN-I 0.13 ng/mL (<0.06)
--- NOTE | 2019-09-16 06:33 | NUR ---
PT A&O X3 OCC CONFUSION. ABLE TO MAKE NEEDS KNOWN. C/O L ARM PAIN THIS MORNING EFFECTIVELY CONTROLLED VIA PRN PAIN MEDS. ASSIST X1 WITH TRANSFERS. PT ON 4L PER NC USES 4L AT HOME NC. INCONT OF B&B.
[2019-09-16 07:20] VITALS: BP 119/62
--- NOTE | 2019-09-16 09:34 | EKG ---
[address] [place] [address] ELECTROCARDIOGRAM REPORT Name: DAVID VINCENT Room #: 203-P ADM IN M.R.#: [id number] Admission: 09/15/19 Attend Phys: [place] MD Discharge: Date of : 50 Report #: [id number] THIS REPORT FOR: //name// [facility] ED Test Date: 2019-09-15 Test Time: 13:35:52 Pat Name: DAVID VINCENT Department: Room: 203 Gender: F Principal Software Architect: LIDYA : [id number] Requested By: Magali Veras Order Number: [id number] MD: Walt Carter Measurements Intervals [place] Rate: 80 P: 80 NH: 185 QRS: 30 QRSD: 151 T: -20 QT: 419 QTc: 484 Interpretive Statements Sinus rhythm Right bundle branch block Compared to ECG 08/16/2019 06:57:49 No significant changes Electronically Signed On 09-16-2019 9:33:55 NURSE GENERAL DUTY by Walt Carter [email or web address] <ELECTRONICALLY SIGNED> By: Walt Carter MD 09/16/19 0933 D: 11/1334 34 Walt Carter MD /TORO
[2019-09-16 11:20] VITALS: BP 122/50
[2019-09-16 11:35] LABS: CALCIUM 8.7 mg/dL (8.5-10.1); CREATININE 0.6 mg/dL (0.6-1.0); POTASSIUM 3.5 mmol/L (3.5-5.1)
[2019-09-16 16:40] VITALS: BP 129/43
--- NOTE | 2019-09-16 17:09 | NUR ---
PT ALERT AND ORIENTED TIMES FOUR. VSS, 99%RA, SR ON TELE. PT C/O PAIN PRN PAIN MEDICATIONS GIVEN WITH GOOD RELEIF. PT UP TO RESTROOM WITH STAND BY ASSIST. PT TOLERATES MEDS AND MEALS. PT PROGRESSING TOWRADS POC GOALS.
[2019-09-16 19:42] VITALS: BP 129/56
[2019-09-17 03:41] VITALS: BP 139/53
[2019-09-17 04:01] LABS: INR 2.4; PROTIME 24.5 Seconds (9.3-11.4)
[2019-09-17 04:21] LABS: CALCIUM 8.5 mg/dL (8.5-10.1); CREATININE 0.5 mg/dL (0.6-1.0); POTASSIUM 3.4 mmol/L (3.5-5.1)
[2019-09-17 04:25] LABS: HEMATOCRIT 25.3 % (37.0-47.0); HEMOGLOBIN 8.3 gm/dL (12.0-15.0); MCH 30.9 pg (26.0-34.0); MCHC 32.7 g/dL (28.0-37.0); MCV 94.7 fL (80.0-100.0); RBC 2.68 mil/uL (4.20-5.00); RDW 14.3 % (10.5-14.5); WBC 2.9 thou/uL (4.0-11.0)
--- NOTE | 2019-09-17 07:11 | NUR ---
[facility] 1900. PT/VITALS STABLE. INTERMITTENT RGHT ARM PAIN WITH STOMACH DISCOMFORT AND NAUSEA NOTED. ZOFRAN FOR NAUSEA/TYLENOL FOR PAIN. PT NOTES RELIEF WITH MEDS. MODERATE TOLERANCE TO CTIVITY. SR ON MONITOR. PROGRESSING WELL WITH POC. PT A/O X 4 STILL ON 4LNC. WILL CONTINUE TO MONITOR LOC/AND WATCH FOR INFECTION. WILL CONTINUE TO MONITOR AND FOLLOW WITH POC
[2019-09-17 08:21] VITALS: BP 158/75
--- NOTE | 2019-09-17 10:45 | NUR ---
Nutrition: Pt admitted with hypoxia. H/o severe COPD on O2, CHF, afib, narcotic use. Consult for "malnutrition." RD is unable to physically assess pt today. Wt: 217#. Albumin 3. +BM yday. Heart Healthy diet ordered, eating 100%. Pt is at risk for malnutrition d/t comorbidities of COPD, CHF. Hopeful for continued good po intake. RD to fully assess on Friday09/20/19 for possible malnutrition DX.
[2019-09-17 11:41] VITALS: BP 144/74
[2019-09-17] MEDS ORDERED: COLACE100 MG PO (13:36)
[2019-09-17] MEDS ORDERED: SLOW FE142 MG PO (13:37)
[2019-09-17] MEDS ORDERED: FLECAINIDE ACET50 M2 PO (13:38)
[2019-09-17] MEDS ORDERED: NEURONTIN 300M300 M2 PO (13:39)
[2019-09-17] MEDS ORDERED: OXTELLAR XR300 MG PO (13:42)
[2019-09-17 16:22] VITALS: BP 135/53
--- NOTE | 2019-09-17 18:47 | NUR ---
ASSUMED CARE 0700. ALERT X3, PAIN MANAGED WITH MEDICATIONS, HOME MEDS LIST UPDATED PER FAMILY AND DR WALKER MADE AWARE OF UPDATE. BM TODAY X2 LOOSE. UP WITH ASSIST X1, ABLE TO MAKE NEEDS KNOWN. FAMILY VISITED PATIENT AND VOICE CONCERN OF PT GOING TO SNF VERSES HOME. DR WALKER VISIT WITH FAMILY AND PT ON PLAN OF CARE. NEW ORDER FOR NYSTATIN FOR UNDER BREAST. INTRA-DRY IN PLACE AT THIS TIME. FALL PRECATION IN PLACE.
[2019-09-17 19:08] VITALS: BP 157/69
[2019-09-18 04:05] VITALS: BP 125/50
--- NOTE | 2019-09-18 04:14 | NUR ---
ASSUMED PT CARE AT 1900. PT A/OX4, VITAL SIGNS STABLE, ASSESSMENT CHARTED. FALL PRECAUTIONS MAINTAINED. NO COMPLAINTS OF PAIN, ON 4L O2, SITS ON SIDE OG BED IF SOB. RESTED WELL THROUGH THE NIGHT. NO ACUTE CHANGES. PROGRESSING TOWARD PLAN OF CARE. WILL CONTINUE TO MONITOR
[2019-09-18 05:02] LABS: HEMATOCRIT 28.2 % (37.0-47.0); HEMOGLOBIN 9.1 gm/dL (12.0-15.0); MCH 30.4 pg (26.0-34.0); MCHC 32.4 g/dL (28.0-37.0); MCV 93.8 fL (80.0-100.0); RDW 14.2 % (10.5-14.5); WBC 3.7 thou/uL (4.0-11.0)
[2019-09-18 05:19] LABS: CALCIUM 8.5 mg/dL (8.5-10.1); CREATININE 0.5 mg/dL (0.6-1.0); POTASSIUM 3.2 mmol/L (3.5-5.1)
[2019-09-18 05:22] LABS: INR 3.5; PROTIME 36.1 Seconds (9.3-11.4)
[2019-09-18 07:50] VITALS: BP 144/69
[2019-09-18 11:36] VITALS: BP 124/80
--- NOTE | 2019-09-18 13:51 | NUR ---
ASSUMED CARE 0700. ALERT X4, PAIN UNDER BREAST MANAGED WITH NYSTATIN CREAM THAT PT VOICED IS IMPROVING. LOOSE STOOL TODAY. PER DR FRANCIA NEELY STOOL SOFTENER MEDICATION. RESTLESS IN BED MOVING FROM SITTING ON SIDE OF BED TO LAYING DOWN. PT DTR INFORMED NURSE PATIENT IS RESTLESS AT HOME WELL. FALL PRECAUTIONS REMAIN IN PLACE. CALLS FOR ASSISTANCE
[2019-09-18 15:55] VITALS: BP 147/55
[2019-09-18 19:00] VITALS: BP 120/40
[2019-09-19 03:40] VITALS: BP 133/49
[2019-09-19 04:52] LABS: PROTIME 55.9 Seconds (9.3-11.4)
[2019-09-19 04:58] LABS: ABSOLUTE NEUTROPHILS 2.6 thou/uL (1.4-8.2); BASOPHILS 0.5 % (0.0-2.0); EOSINOPHILS 2.1 % (0.0-3.0); HEMATOCRIT 28.2 % (37.0-47.0); HEMOGLOBIN 9.1 gm/dL (12.0-15.0); LYMPHOCYTES 15.9 % (24.0-44.0); MCH 30.4 pg (26.0-34.0); MCHC 32.4 g/dL (28.0-37.0); MCV 93.7 fL (80.0-100.0); MONOCYTES 11.7 % (1.0-8.0); PLATELET COUNT 223 thou/uL (150-400); POLYS 69.8 % (36.0-66.0); RBC 3.01 mil/uL (4.20-5.00); RDW 14.1 % (10.5-14.5); WBC 3.7 thou/uL (4.0-11.0)
--- NOTE | 2019-09-19 05:06 | NUR ---
ASSUMED PT CARE AT 1900. PT A/OX3, VITAL SIGNS STABLE, ASSESSMENT CHARTED. PAIN IN RIGHT HAND ADEQAUTELY MANAGED WITH PAIN MEDICATION. 4L O2 MAINTAINED. FALL PRECAUTIONS MAINTAINED. PT RESTED WELL TOWARD PLAN OF CARE. PROGRESSING TOWARD PLAN OF CARE. WILL CONTINUE TO MONITOR.
[2019-09-19 05:18] LABS: ALBUMIN 2.6 g/dL (3.4-5.0); CALCIUM 8.6 mg/dL (8.5-10.1); CREATININE 0.5 mg/dL (0.6-1.0); MAGNESIUM 1.7 mg/dL (1.8-2.4); PHOSPHORUS 3.9 mg/dL (2.5-4.9); TOTAL BILIRUBIN 0.5 mg/dL (<0.1-1.0); TOTAL PROTEIN 5.9 g/dL (6.4-8.2)
[2019-09-19 05:25] LABS: POTASSIUM 3.9 mmol/L (3.5-5.1)
[2019-09-19 05:46] LABS: INR 5.4
[2019-09-19 08:38] VITALS: BP 158/60
--- NOTE | 2019-09-19 11:32 | NUR ---
ASSUMED CARE AT 0700, SHIFT ASSESSMENT DONE, MEDS GIVEN, VSS. DENIES PAIN, NAUSEA, VOMITING. UP WITH STANDBY, FALL PRECAUTIONS IN PLACE. CALLS APPROPRIATELY. NSR ON TELE, REMAINS ON 4LNC. WILL CONTINUE TO ASSESS AND ASSIST WITH ADLs NEEDED.
[2019-09-19 12:32] VITALS: BP 106/72
[2019-09-19 16:29] VITALS: BP 130/54
[2019-09-19 20:10] VITALS: BP 130/53
[2019-09-20 03:18] VITALS: BP 138/68
[2019-09-20 03:56] LABS: ABSOLUTE NEUTROPHILS 2.7 thou/uL (1.4-8.2); BASOPHILS 0.6 % (0.0-2.0); EOSINOPHILS 2.3 % (0.0-3.0); HEMOGLOBIN 9.7 gm/dL (12.0-15.0); LYMPHOCYTES 16.2 % (24.0-44.0); MCH 30.5 pg (26.0-34.0); MCHC 32.5 g/dL (28.0-37.0); MCV 93.6 fL (80.0-100.0); MONOCYTES 11.6 % (1.0-8.0); PLATELET COUNT 252 thou/uL (150-400); POLYS 69.3 % (36.0-66.0); RDW 14.1 % (10.5-14.5); WBC 3.9 thou/uL (4.0-11.0)
[2019-09-20 04:10] LABS: PROTIME 26.6 Seconds (9.3-11.4)
[2019-09-20 04:14] LABS: INR 2.6
--- NOTE | 2019-09-20 05:05 | NUR ---
ASSESSMENT DOCUMENTED.PT BEEN RESING IN NO ACUTE DISTRESS.A/OX3.VSS.SR/SB ON MONITOR.UP WITH ASSIST TO BSC.C/O PAIN TO RIGHT HAND,MEDICATED WITH TYLENOL WITH PARTIAL RELIEF.POC IS TO POSSIBLE DISCHARGE TO REHAB OR SNF.PT REMAINS ON O2 AT 4LITERS PNC.NO RESP DISTRESS NOTED.
[2019-09-20 08:25] VITALS: BP 151/70
--- NOTE | 2019-09-20 11:37 | NUR ---
Nutrition followup: pt assessed 09/[address] not able to visit in person. Able to interview pt today. PO intake records are variable from 30-100% on heart healthy diet, generally > 50%. Not drinking ensure ordered, will D/C. UBW reported as 200#. Admit 217#, current 203#. Is trending downward with diuresis. Pt voices no questions for RD. Deferring malnutrition diagnosis to physician. Pt is low risk.
[2019-09-20 12:07] VITALS: BP 121/53
[2019-09-20] MEDS ORDERED: TAMBOCOR 100 M100 M1 PO (12:07)
[2019-09-20] MEDS ORDERED: COUMADIN 2.5MG2.5 M1 PO (12:17)
[2019-09-20 13:00] VITALS: BP 121/53
--- NOTE | 2019-09-20 13:46 | NUR ---
FAXED REFERRAL TO [facility] SPOKE WITH AMARI PT HAS BEEN ON SERVICE WITH THEM PATIENT SUPPORT PARTNER AND WILL RESUME CARE AT DISCHARGE. FAXED CLINICAL UPDATE AND DC ORDERS AND THEY WILL NOTIFY PT TIME OF VISITS.
--- NOTE | 2019-09-20 14:08 | HC ---
[facility] [place] [address] CONSULTATION Name: DAVID VINCENT Room #: 203-P ADM IN M.R.#: [id number] Admission: 09/15/19 Attend Phys: [place] MD Discharge: Date of : 50 Report #: [id number] THIS REPORT FOR: //name// CC: [place] Wayne [facility] physician/PCP REASON FOR CONSULTATION: Atrial fibrillation and positive troponin. HISTORY OF PRESENT ILLNESS: This is a 69-year-old patient who I follow in the Cardiology Clinic for atrial fibrillation. She is on warfarin therapy and flecainide therapy. I saw her when she was recently hospitalized in July with pneumonia. She was intubated at that time. Eventually, she was extubated and sent to rehabilitation. During her hospitalization, she did not really have any significant atrial fibrillation and she was maintained on her flecainide therapy. She did have an echo performed during the hospitalization, which showed an EF of 60-65% with mild aortic stenosis. Speaking with her today, the patient reports that she was with her sisters yesterday, sitting at the dinner table and said that she just felt odd. That is all she really complains of. They decided to bring her to the Emergency Room for this reason. She denies any change in her shortness of breath. She denied any fevers or chills. She denied chest pain or chest tightness. She denied PND or orthopnea. She denied any increased swelling. She denied any symptoms to suggest recurrent AFib. She had a CT scan in the ER that did not show anything significant. Chest x-ray, I visualized, did not show anything significant, does not really look like CHF. Her EKG shows sinus rhythm with no ischemic changes. REVIEW OF SYSTEMS: A 12-point review of system was negative other than what I mentioned above. PAST MEDICAL HISTORY: AFib, some diastolic dysfunction, COPD, obstructive sleep apnea, chronic pain syndrome, rheumatoid arthritis, factor V Leiden. SOCIAL HISTORY: Does not smoke. FAMILY HISTORY: Noncontributory. ALLERGIES: MORPHINE. MEDICATIONS: Include flecainide, warfarin and other meds have been reviewed. PHYSICAL EXAMINATION: VITAL SIGNS: Reviewed and stable and afebrile. GENERAL: No acute distress. HEENT: Oropharynx clear. NECK: Supple, with no thyromegaly or carotid bruits. HEART: Regular rate and rhythm with no murmurs, rubs or gallops. She does not have elevated JVD. [facility] [address] [place] [address] CONSULTATION Name: DAVID VINCENT Room #: 203-P [facility] ..#: [id number] Admission: 09/15/19 Attend Phys: [place] MD Discharge: Date of : 50 Report #: [id number] LUNGS: Clear bilaterally. ABDOMEN: Soft, nontender, nondistended with no hepatosplenomegaly. EXTREMITIES: No clubbing, cyanosis or edema. NEUROLOGIC: Cranial nerves 2-12 are intact. LABORATORY DATA: CBC: Hemoglobin 8, white count 3.7, platelets 174. Blood gas: pH 7.3, pCO2 of 63, pO2 of 62. Coags: INR mildly elevated at 4.5, today 3.1. Chemistries: Sodium 148, potassium 3.4, chloride 108, bicarbonate 38, BUN 15, creatinine 0.6. Troponin 0.13. ProBNP 4212. Recent echocardiogram shows normal LV size and function. Her EKG shows normal sinus rhythm with right bundle-branch block and no ischemic changes. ASSESSMENT AND PLAN: 1. Altered mental status. I think this is the reason, she presented to the ER and etiology of this is unclear. Unsure if this is related to some hypoxemia and hypercapnia, but these all appeared to be mild. 2. Elevated troponin. Etiology of this is unclear. The patient has no chest pain nor does she have any ischemic changes on her EKG. She has had a recent normal echocardiogram. Given the lack of symptoms, I do not think an ischemic evaluation is warranted. I do not think a repeat echo is required either. This may be due to some hypoxemia. We can monitor this. 3. Atrial fibrillation, this appears to be well controlled. We will continue with flecainide. We can resume warfarin therapy. We will continue to follow. <ELECTRONICALLY SIGNED> By: Walt Carter MD 09/20/19 1408 [id number] 1007 Walt Carter MD /nt
[2019-09-20 15:39] VITALS: BP 121/53
[2019-09-20 16:19] VITALS: BP 134/59
--- NOTE | 2019-09-20 19:36 | NUR ---
ASSUMED CARE AT 0700, SHIFT ASSESSMENT DONE, MEDS GIVEN, VSS. NSR ON TELE. ON 4LNC. DISCHARGE ORDER RECEIVED, PERIPHERAL IV WAS TAKEN OUT. DC PAPER WORK GIVEN. PT LEFT WITH FAMILY AT 1600.
[2019-09-21] MEDS ORDERED: COUMADIN 2.5MG2.5 M1 PO (13:57)
[2019-09-21] MEDS ORDERED: TAMBOCOR 100 M100 M1 PO (13:57)
[2019-09-21] MEDS ORDERED: PULMICORT0.5 MG/21 INH (13:57)
== END 2019-09-20 16:27 | disposition home health service (06) | DRG 280 ==
LOC: ER 13:28 → 2N 16:57 → EROBS 16:57 → 2N 17:34 → ENTRNSPT 09-20 16:18 → 2N 09-20 16:27
PROVIDERS: Hospitalist; Internal Medicine; Nurse Practitioner; Physician Assistant; ADMIT Hospitalist
DX: I48.0 Paroxysmal atrial fibrillation (principal); J96.21 Acute and chronic respiratory failure with hypoxia; I21.A1 Myocardial infarction type 2; I50.33 Acute on chronic diastolic (congestive) heart failure; G93.41 Metabolic encephalopathy; J96.22 Acute and chronic respiratory failure with hypercapnia; F11.20 Opioid dependence, uncomplicated; E44.0 Moderate protein-calorie malnutrition; D68.2 Hereditary deficiency of other clotting factors; N17.9 Acute kidney failure, unspecified; D68.59 Other primary thrombophilia; I47.1 Supraventricular tachycardia; M06.9 Rheumatoid arthritis, unspecified; J43.9 Emphysema, unspecified; E04.1 Nontoxic single thyroid nodule; D35.02 Benign neoplasm of left adrenal gland; D63.8 Anemia in other chronic diseases classified elsewhere; I27.20 Pulmonary hypertension, unspecified; E66.9 Obesity, unspecified; S14.3XXA Injury of brachial plexus, initial encounter; X58.XXXA Exposure to other specified factors, initial encounter; I35.0 Nonrheumatic aortic (valve) stenosis; E87.6 Hypokalemia; I11.0 Hypertensive heart disease with heart failure; E78.5 Hyperlipidemia, unspecified; G47.33 Obstructive sleep apnea (adult) (pediatric); G89.4 Chronic pain syndrome; Z94.89 Other transplanted organ and tissue status; Z87.820 Personal history of traumatic brain injury; Z88.6 Allergy status to analgesic agent; Z87.891 Personal history of nicotine dependence; Z82.5 Family history of asthma and other chronic lower respiratory diseases; Z82.49 Family history of ischemic heart disease and other diseases of the circulatory system; Z68.37 Body mass index [BMI] 37.0-37.9, adult; Z79.01 Long term (current) use of anticoagulants; Y93.89 Activity, other specified; Y92.89 Other specified places as the place of occurrence of the external cause; Y99.8 Other external cause status; Z79.899 Other long term (current) drug therapy
CPT/HCPCS: 10081

== ENCOUNTER → 2019-10-08 | Outpatient (CLI) | payer OTHER ==
[~2019-10-08] VITALS: Ht 160 cm; Wt 99.1 kg
[~2019-10-08] MED LIST changes: +FLECAINIDE ACET50 M2 PO; +MELOXICAM15 MG PO; +MELOXICAM7.5 MG PO; +NARCAN4 MG NARES; +OXTELLAR XR300 MG PO; +PROTONIX40 M4 PO; +SENNA LAX8.6 MG PO; +SLOW FE142 MG PO; +TAMBOCOR 100 M100 M1 PO; +TREXALL10 MG PO; +VITAMIN D250 MCG PO; +VITAMIN D35000 UNI2 PO
[2019-10-08 14:29] VITALS: BP 131/53
--- NOTE | 2019-10-08 14:36 | NUR ---
Pain Clinic Assessment: 1. History of Osteoarthritis: VANGIE KNEES RIGHT WRIST HANDS History of Rheumatoid Arthritis: Left Lower Extremity Right Lower Extremity 2. Height: 5 ft. 3 in. 160.0 cm. Weight: 218.5 lb. oz. 99.111 kg. Patient's BMI: 38.7 3. Vital Signs: BP: 131/53 Pulse: 64 Resp: 18 Temp: 02 Sat: 97 ECG Mon: 4. Pain Intensity: 6 5. Fall Risk: Dizziness: Needs help standing or walking: Fallen in the last 3 months: Fall risk comments: USES CANE SOMETIMES- NOT TODAY 6. Patient on Blood Thinner: WARFARIN 7. History of Hypertension: Y 8. Opioid Therapy greater than 6 weeks: Y Opiate Contract Signed: 05/02/16 9. Risk Assessment Tool Provided: LOW RISK 0/3 10. Functional Assessment Tool: 11. Recreational Drug Use: Never Drug Type: Tobacco Use: Former Smoker Tobacco Type: Amount or Packs/day: How Many Years: Alcohol Use: No Frequency: Quant:
--- NOTE | 2019-12-10 09:03 | HPC ---
[facility] [address] [place] [address] PAIN MANAGEMENT CONSULTATION Name: DAVID VINCENT Room #: REG MICHAEL [facility].#: [id number] Admission: 10/08/19 Attend Phys: Asya Lai MD Discharge: Date of : 50 Report #: [id number] THIS REPORT FOR: cc: Cole Hunter MD, Eric K. MD Brown,Asya Calhoun MD ~ THIS REPORT FOR: //name// CC: Cole Lai DATE OF SERVICE: 10/08/2019 CHIEF COMPLAINT: "Pain in my wrists, upper arm, shoulders, right knee." HISTORY: The patient is a 69-year-old female who has been followed in the pain clinic because of chronic brachial plexus pain and discomfort. She has found her current medications to be efficacious. Feels that the methadone medication is beneficial. She continues with gabapentin. She has returned today for renewal of her medications. She has osteoarthritis in the upper extremities as well as rheumatoid arthritis in her lower extremities. She continues to have some pain in her right knee. Has some pain and rates it as a 7/10 at this juncture. She notes that holding her arm close to her chest can decrease some of the discomfort. As you may recall, this injury happened greater than 9 years ago. She has had multiple surgeries. ALLERGIES: MORPHINE. CURRENT MEDICATIONS: Pulmicort inhalations b.i.d., flecainide 100 mg b.i.d., warfarin 2.5 mg, Colace 100 mg b.i.d., Tylenol Extra Strength 500 mg, Lovenox 100 mg subcutaneous b.i.d., Protonix 40 mg, Senna 70 b.i.d., methadone 10 mg q.8 hours, Lipitor 20 mg, Zoloft 50 mg, potassium 20 mEq, amlodipine 10 mg, Tenormin 50 mg b.i.d., folic acid 1 gram. PAIN CLINIC ASSESSMENT AND PQRS: 1. The patient has a history of osteoarthritis. She has osteoarthritic changes involving her upper extremity. She is also being treated for rheumatoid arthritis. 2. Height 5 feet 3 inches, weight 218 pounds, BMI is 38.7. 3. Vital Signs: Blood pressure 131/58, pulse 64, respiratory rate 18, room air saturation 97%. 4. Pain intensity /10. 5. Fall history: The patient uses a cane and sometimes is somewhat unsteady, but she has not fallen. 6. Blood thinner. The patient is on warfarin for atrial fibrillation history. 7. History of hypertension. [address] [address] PAIN MANAGEMENT CONSULTATION Name: DAVID VINCENT Room #: REG [facility]#: [id number] Admission: 10/08/19 Attend Phys: Asya Lai MD Discharge: Date of : 50 Report #: [id number] 8. Opioids greater than 6 weeks. The patient received medication from one source the pain clinic. 9. Risk assessment tool, low for opioid use. 10. Functional assessment tool, . 11. Recreational drugs: The patient denies. 12. Tobacco: The patient is a former smoker. 13. Alcohol: The patient denies frequent use of alcoholic beverages. PHYSICAL EXAMINATION: GENERAL: The patient is a well-developed, well-nourished white female. Appears her stated age. She is alert and oriented x 3. Her affect is appropriate. Speech is fluent. HEENT: Normocephalic, atraumatic. Extraocular eye muscles intact. Sclerae nonicteric. Mucous membranes moist. The patient is wearing oxygen. NECK: Without adenopathy or JVD. EXTREMITIES: 1. Upper extremity muscle strength judged to be 5-/5 for the major muscle groups. Has pain and discomfort in her right shoulder and forearm. The patient is able to move her extremities in a reasonable range of motion without significant difficulty. 2. The patient complains of allodynia involving her arm. Lower extremity muscle strength is judged to be 5-/5 for the major muscle groups in the lower extremity. Muscle tone appears normal. IMPRESSION: 1. 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 2. Rheumatoid arthritis. 3. Osteoarthritis involving her shoulders and knees. 4. Chronic pain treated with an opioid medication to help control the pain. RECOMMENDATIONS: We discussed treatment options with the patient. Risks and benefits of opioid medications were again discussed. The patient is aware that opioid medications can become less effective as time prolongs. She feels her medications are working reasonably well. She does not have any problems. She keeps her medications in a guarded area. She rates her pain as 6/10 at this juncture. We will continue with the patient's medication. A script for Neurontin 300 mg tablets 3 tablets in the morning, 2 tablets noon, and ____ tablets at bedtime has been written. The patient will also continue with oxcarbazepine 300 mg 3-month supply has been provided. The patient will continue with methadone 2 tablets of 10 mg, 2 in the morning, 1 tablet at noon and 1 tablet at bedtime. The patient will call us if she has any concerns. [address] [address] PAIN MANAGEMENT CONSULTATION Name: DAVID VINCENT Room #: REG MICHAEL [facility]#: [id number] Admission: 10/08/19 Attend Phys: Asya aLi MD Discharge: Date of : 50 Report #: [id number] We would like to thank you for letting us participate in her care. We hope she continues to improve. <ELECTRONICALLY SIGNED> By: Asya Lai MD 12/10/19 0903 1813 9 Asya Lai MD /nt
== END ==
LOC: PAIN 06:52
DX: M17.0 Bilateral primary osteoarthritis of knee (principal); M19.011 Primary osteoarthritis, right shoulder; M19.012 Primary osteoarthritis, left shoulder; M25.531 Pain in right wrist; M25.532 Pain in left wrist; M06.9 Rheumatoid arthritis, unspecified; G89.29 Other chronic pain; Z88.6 Allergy status to analgesic agent; Z79.899 Other long term (current) drug therapy

== ENCOUNTER → 2019-12-08 | Outpatient (CLI) | payer OTHER ==
[~2019-12-08] VITALS: Ht 160 cm; Wt 95.7 kg
[2019-12-08 12:51] VITALS: BP 145/66
--- NOTE | 2019-12-08 13:08 | NUR ---
Pain Clinic Assessment: 1. History of Osteoarthritis: VANGIE KNEES RIGHT WRIST HANDS History of Rheumatoid Arthritis: Left Lower Extremity Right Lower Extremity 2. Height: 5 ft. 3 in. 160.0 cm. Weight: 211.0 lb. oz. 95.709 kg. Patient's BMI: 37.4 3. Vital Signs: BP: 145/66 Pulse: 57 Resp: 14 Temp: 02 Sat: 95 ECG Mon: 4. Pain Intensity: 7 5. Fall Risk: Dizziness: N Needs help standing or walking: N Fallen in the last 3 months: N Fall risk comments: USES CANE SOMETIMES- NOT TODAY 6. Patient on Blood Thinner: WARFARIN 7. History of Hypertension: Y 8. Opioid Therapy greater than 6 weeks: Y Opiate Contract Signed: 05/02/16 9. Risk Assessment Tool Provided: LOW RISK 0/3 10. Functional Assessment Tool: 11. Recreational Drug Use: Never Drug Type: Tobacco Use: Former Smoker Tobacco Type: Amount or Packs/day: How Many Years: Alcohol Use: No Frequency: Quant:
--- NOTE | 2019-12-09 12:57 | HPC ---
[facility] [address] [place] [address] PAIN MANAGEMENT CONSULTATION Name: DAVID VINCENT [id number] Admission: 12/08/19 Attend Phys: Hamida Nava Discharge: Date of : 50 Report #: [id number] THIS REPORT FOR: cc: Cole Hunter MD, Eric K. MD Hocker,Hamida HENRIQUEZ ~ THIS REPORT FOR: //name// CC: Hamida Hunter DATE OF SERVICE: 12/08/2019 CHIEF COMPLAINT: Chronic brachial plexus pain. HISTORY OF PRESENT ILLNESS: This is a 69-year-old female who returns to the pain clinic today for refill of her medications of methadone that we use to help treat her brachial plexus pain as a result of a right brachial avulsion injury. She also takes gabapentin for her neuropathic pain. Today, she reports her pain score is 7/10. She reports overall she is doing quite well. She was hospitalized last fall and since that time, she has decreased some of her medications, though she does report that Dr. Laboy will be starting her on methotrexate, meloxicam and vitamin D. starting this Friday. Today, she is reporting a pain score 7/10 in her right arm and shoulder. It is aching, sharp, shooting pain. She feels though that elevating her arm as well as taking her medication is beneficial. ALLERGIES: MORPHINE. CURRENT LIST OF MEDICATIONS: Vitamin D, meloxicam, methotrexate, Coumadin, methadone 10 mg 3 times a day, gabapentin 300 mg t.i.d., Pulmicort, flecainide, Colace, Protonix, Senokot, atorvastatin, Zoloft, potassium, amlodipine, atenolol, oxygen and folic acid. PQRS: 1. She has a history of osteoarthritis in her upper extremities and also being treated for rheumatoid arthritis. 2. Height is 5 feet 3 inches, weight is 211, BMI is 37. 3. Vital signs 145/66, pulse is 57, respirations 14, oxygen sat is 95. 4. Pain score is 7/10. 5. Denies dizziness, does not need help walking or standing, has not fallen in the last 3 months. 6. The patient is on warfarin as well as medicines for hypertension. 7. Opioid therapy is greater than 6 weeks; therefore, an opioid signed contract is on the chart. Risk assessment is low. Functional assessment is . 8. Recreational drug use, she denies. She is a former [place] [address] PAIN MANAGEMENT CONSULTATION Name: DAVID VINCENT Room #: REG [facility]#: [id number] Admission: 12/08/19 Attend Phys: Hamida Nava Discharge: Date of : 50 Report #: [id number] drink alcohol. According to the prescription monitoring system, the patient is filling appropriately for her medications. According to the CDC guidelines, her morphine mEq per day is 120 on the low end of the methadone conversion. PHYSICAL EXAMINATION: GENERAL: This is alert and orientated, well-nourished 69-year-old female who is placing her current pain score at 7/10. HEENT: Normocephalic, atraumatic. Extraocular eye muscles are intact. She is currently wearing 4 liters nasal cannula in her nares. NECK: Without adenopathy or JVD. EXTREMITIES: She has increased pain in her right shoulder into her right arm that radiates into her hands. Some allodynia is present in her upper extremity. Her upper extremity strength judged to be 4/5 on her right, 5/5 on her left. Her lower extremity strength judged to be 5/5 in all major muscle groups. IMPRESSION: 1. 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 2. Rheumatoid arthritis. 3. Osteoarthritis involving her shoulders and knees. 4. Chronic pain. 5. Complex medical management under terms of written opioid agreement. 6. On anticoagulation therapy, warfarin. We reviewed the fact that opiate medications are being used to provide analgesia adequate to support activities of daily living, not attempting to achieve a specific pain score on the 0-10 Visual Analog Scale. The current opiate medications are providing sufficient analgesia to allow the patient to participate in activities of daily living. The patient is not exhibiting any aberrant behavior suggestive of drug diversion. The patient is not having any adverse reactions to medications. The patient is not suffering from daytime somnolence or mental acuity changes. The patient is managing opiate-induced constipation with appropriate pygu-vok-jxhhvnn agents and dietary considerations. The patient was counseled on concern for caution with operating a motor vehicle while using opiate medications. A physical exam was performed and the patient's functional status was evaluated. All patients with back pain were advised against the bed rest greater than 4 days and were advised to return to normal activities. Pain score assessment was noted and the treatment plan was reviewed with the patient. All current medications, both prescribed and OTC were reviewed and reconciled on the electronic medical record. Tobacco screening was accomplished and smoking cessation was advised when indicated. BMI was noted and diet/exercise modification was recommended for all patients following outside normal [facility] [address] [place] [address] PAIN MANAGEMENT CONSULTATION Name: DAVID VINCENT Room #: REG MICHAEL [facility]#: [id number] Admission: 12/08/19 Attend Phys: Hamida Nava Discharge: Date of : 50 Report #: [id number] parameters. I reviewed with the patient today their responsibilities to safeguard prescription medications, reviewed their responsibility to utilize medications only as prescribed by the physician. They are to seek and receive pain medications only from 1 physician group ( [facility]). They are to use 1 pharmacy and keep the clinic informed if they change pharmacies. Their responsibilities include making followup visits in a timely fashion and to avoid abrupt discontinuation of medication usage. Their responsibilities further include bringing their medications (bottles from the pharmacy with residual pills) to the visit for possible confirmation of pill counts and the patient understands it is their responsibility to submit to random drug screens to ensure both that the medications prescribed are present, and that no other controlled substances are present. All prescriptions provided today were generated electronically. PLAN: 1. We discussed treatment options with the patient today. The patient had stated she was going to start taking methotrexate, meloxicam and vitamin D. from Dr. Laboy. I reminded her of the interaction with Coumadin and anti-inflammatories. She reported that Dr. Laboy is aware of those and is continuing to keep her on these two medications. I described the risks and benefits of these meds as well and to notify Dr. Laboy if she develops any side effects. 2. Dr. Benoit Lai will refill her methadone 10 mg t.i.d., #90 for today and 4-week release as well and I will refill her gabapentin 300 mg t.i.d., this will be sent electronically to the pharmacy. 3. Dr. Benoit Lai collaborated on care today did see the patient as well. The patient will return in 2 months for medication management. <ELECTRONICALLY SIGNED> By: Hamida Nava 12/09/19 1257 [id number] Hamida Nava /nt
== END ==
LOC: PAIN 06:43
DX: Z76.0 Encounter for issue of repeat prescription (principal); S14.3XXD Injury of brachial plexus, subsequent encounter; M06.80 Other specified rheumatoid arthritis, unspecified site; M17.0 Bilateral primary osteoarthritis of knee; M19.011 Primary osteoarthritis, right shoulder; M19.012 Primary osteoarthritis, left shoulder; G89.29 Other chronic pain; Z88.5 Allergy status to narcotic agent; Z79.01 Long term (current) use of anticoagulants; Z79.891 Long term (current) use of opiate analgesic; Z79.899 Other long term (current) drug therapy; X58.XXXD Exposure to other specified factors, subsequent encounter

== ENCOUNTER → 2020-02-04 | Outpatient (CLI) | payer OTHER ==
[~2020-02-04] VITALS: Ht 160 cm; Wt 89.4 kg
[2020-02-04 09:44] VITALS: BP 161/68
--- NOTE | 2020-02-04 09:55 | NUR ---
Pain Clinic Assessment: 1. History of Osteoarthritis: VANGIE KNEES RIGHT WRIST HANDS History of Rheumatoid Arthritis: Left Lower Extremity Right Lower Extremity 2. Height: 5 ft. 3 in. 160.0 cm. Weight: 197.0 lb. oz. 89.359 kg. Patient's BMI: 34.9 3. Vital Signs: BP: 161/68 Pulse: 73 Resp: 14 Temp: 02 Sat: 96 ECG Mon: 4. Pain Intensity: 8 5. Fall Risk: Dizziness: N Needs help standing or walking: N Fallen in the last 3 months: N Fall risk comments: USES CANE SOMETIMES- NOT TODAY 6. Patient on Blood Thinner: WARFARIN 7. History of Hypertension: Y 8. Opioid Therapy greater than 6 weeks: Y Opiate Contract Signed: 05/02/16 9. Risk Assessment Tool Provided: LOW RISK 0/3 10. Functional Assessment Tool: 11. Recreational Drug Use: Never Drug Type: Tobacco Use: Former Smoker Tobacco Type: Amount or Packs/day: How Many Years: Alcohol Use: No Frequency: Quant:
--- NOTE | 2020-02-16 08:03 | HPC ---
[facility] [address] [place] [address] PAIN MANAGEMENT CONSULTATION Name: DAVID VINCENT Room #: REG MICHAEL [facility].#: [id number] Admission: 02/04/20 Attend Phys: Asya Lai MD Discharge: Date of : 50 Report #: [id number] THIS REPORT FOR: cc: Cole Hunter MD, Eric K. MD Brown, N. Wayne MD ~ CC: Cole Lai DATE OF SERVICE: 02/04/2020 CHIEF COMPLAINT: Arm pain, wrist pain, shoulder pain, and knee pain. HISTORY: The patient is a 69-year-old female who has been followed in the Pain Clinic. As you recall, she suffers from chronic brachial plexus pain. She feels that her medications, which include methadone are helpful. She also feels that the gabapentin medication offers benefit. She has a history of rheumatoid arthritis in the upper extremities. She has pain involving her knee, particularly on the right side. She rates her pain today as an 8/10. Describes as aching, sharp, shooting, radiating, constant discomfort. She feels that over the last few days, her pain has been worse. The exact etiology is not clear. As you may recall, she had an avulsion of the brachial plexus. She has had a right knee replaced. ALLERGIES: MORPHINE. CURRENT MEDICATIONS: Pulmicort inhaler b.i.d., flecainide 100 mg b.i.d., warfarin 2.5 mg, Colace 100 mg b.i.d., Tylenol Extra Strength 500 mg, Lovenox 100 mg subcutaneous b.i.d., Protonix 40 mg, Senna 70 mg b.i.d., methadone 10 mg q. 8 hours, Lipitor 20 mg, Zoloft 50 mg, potassium 20 mEq, amlodipine 10 mg, Tenormin 50 mg b.i.d., and folic acid 1 mg. PAIN CLINIC ASSESSMENT/PQRS: 1. The patient has a history of osteoarthritis. She has osteoarthritic changes involving her upper extremity. She is also being treated for rheumatoid arthritis. 2. Height 5 feet 3 inches, weight 197 pounds, BMI is 34.9. 3. Vital Signs: Blood pressure 161/68, pulse 73, respiratory rate 14, room air saturation 96%. 4. Pain intensity, 8-9 and on occasion, 9/10. 5. Fall risk. The patient has not fallen in the last 3 months. She uses a cane sometimes, but not today. 6. Blood thinner. The patient is on a blood thinning medication warfarin. 7. History of hypertension. The patient is being [place] [address] PAIN MANAGEMENT CONSULTATION Name: DAVID VINCENT Room #: REG MICHAEL [facility]#: [id number] Admission: 02/04/20 Attend Phys: Asya Lai MD Discharge: Date of : 50 Report #: [id number] 8. Opioids greater than 6 weeks. The patient receives medication from the Pain Clinic. 9. Risk assessment tool, low for opioid use. 10. Functional assessment tool, . 11. Recreational drug use. The patient denies. 12. Tobacco: The patient is a former smoker. 13. Alcohol. The patient denies frequent use of alcoholic beverages. PHYSICAL EXAMINATION: GENERAL: The patient is a well-developed, well-nourished white female. Appears her stated age. She is alert and oriented x 3. Her affect is appropriate. Speech is fluent. HEENT: Normocephalic, atraumatic. Extraocular eye muscles intact. Sclerae nonicteric. Mucous membranes are moist. MUSCULOSKELETAL: Upper extremity muscle strength judged to be 5-/5 for the major muscle groups in the right upper shoulder and forearm area. The patient is able to move her extremities with a reasonable range of motion without significant difficulty. The patient complains of allodynia involving her arm. Lower extremity muscle strength is judged to be 5-/5 for the major muscle groups in the lower extremity. Muscle tone appears normal. IMPRESSION: 1. 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 2. Rheumatoid arthritis. 3. Osteoarthritis involving her shoulders and knees. 4. Chronic pain treated with opioid medication to help control the pain. RECOMMENDATIONS: We discussed treatment options with the patient. Risks and benefits of opioid medications were again discussed. The patient is aware that medications can become less effective. She is not showing signs of addiction. Takes her medication as prescribed. Rates her pain today is somewhat high at 8-9/10. A script for her medications have been written. She is using less of the meloxicam per her doctor, Dr. Laboy. A script for Protonix 40 mg, methotrexate 2.5 mg have been written. She will call us if she has any concerns. We would like to thank you for letting us participate in her care. We hope she continues to improve. <ELECTRONICALLY SIGNED> By: Asya Lai MD 02/16/20 0803 [id number] Asya Lai MD /nt
== END ==
LOC: PAIN 09:20
DX: M19.012 Primary osteoarthritis, left shoulder (principal); M19.011 Primary osteoarthritis, right shoulder; M17.0 Bilateral primary osteoarthritis of knee; Z87.81 Personal history of (healed) traumatic fracture; M25.569 Pain in unspecified knee; F11.20 Opioid dependence, uncomplicated; Z87.39 Personal history of other diseases of the musculoskeletal system and connective tissue; Z87.891 Personal history of nicotine dependence; Z88.5 Allergy status to narcotic agent; Z79.899 Other long term (current) drug therapy

== ENCOUNTER → 2020-04-17 | Outpatient (CLI) | payer OTHER ==
[~2020-04-17] VITALS: Ht 160 cm; Wt 89.6 kg
[2020-04-17 10:35] VITALS: BP 141/58
--- NOTE | 2020-04-17 10:59 | NUR ---
Pain Clinic Assessment: 1. History of Osteoarthritis: VANGIE KNEES RIGHT WRIST HANDS History of Rheumatoid Arthritis: Left Lower Extremity Right Lower Extremity 2. Height: 5 ft. 3 in. 160.0 cm. Weight: 197.6 lb. oz. 89.631 kg. Patient's BMI: 35.0 3. Vital Signs: BP: 141/58 Pulse: 58 Resp: 14 Temp: 02 Sat: 93 ECG Mon: 4. Pain Intensity: 10 5. Fall Risk: Dizziness: N Needs help standing or walking: N Fallen in the last 3 months: N Fall risk comments: USES CANE SOMETIMES- NOT TODAY 6. Patient on Blood Thinner: WARFARIN 7. History of Hypertension: Y 8. Opioid Therapy greater than 6 weeks: Y Opiate Contract Signed: 05/02/16 9. Risk Assessment Tool Provided: LOW RISK 0/3 10. Functional Assessment Tool: 11. Recreational Drug Use: Never Drug Type: Tobacco Use: Former Smoker Tobacco Type: Amount or Packs/day: How Many Years: Alcohol Use: No Frequency: Quant:
--- NOTE | 2020-04-19 12:22 | HPC ---
[facility] [address] [address] PAIN MANAGEMENT CONSULTATION Name: DAVID VINCENT [id number] Admission: 04/17/20 Attend Phys: Hamida Nava Discharge: Date of : 50 Report #: [id number] THIS REPORT FOR: cc: Cole Hunter MD, Eric K. MD Hocker,Hamida HENRIQUEZ ~ CC: Lexus Lai MD DATE OF SERVICE: 04/17/2020 CHIEF COMPLAINT: Right arm, wrist and shoulder pain due to chronic brachial plexus. HISTORY OF PRESENT ILLNESS: As you know, this is a 70-year-old female who is well known to the pain clinic for her opioid medications as she comes and is stable on her methadone therapy. She continues to also take gabapentin for her neuropathic pain in her arm. Today, she is rating her pain score slightly elevated at 10/10. She states the weather has increased her pain today in her right shoulder, arm and wrist. She also was complaining of right knee pain. She reports she needs it to be replaced, but because of the COVID virus, things have been backlogged and she is unable to have her appointments. She states that it is a sharp, aching, shooting pain. Elevating her arm and taking her medication are beneficial. ALLERGIES: MORPHINE. CURRENT LIST OF MEDICATIONS: Meloxicam 7.5 mg, methadone 10 mg 3 times a day, gabapentin 300 mg 3 times a day, vitamin D2, Traxol, Protonix, senna, Tambocor, Lipitor, vitamin D3, Coumadin, Colace, Zoloft, potassium, amlodipine, Tenormin, and folic acid. PQRS: 1. She has a history of osteoarthritis with changes in her upper extremity. She has also been treated for rheumatoid arthritis. 2. Height is 5 feet 3 inches, weight is 197, BMI is 35. 3. Vital signs 141/58, pulse is 58, respirations 14, oxygen sat is 93. 4. Pain score is 10/10. 5. Denies dizziness. Does use a cane occasionally. The patient has not fallen in the last 3 months. 6. The patient is on warfarin as well as medicines for hypertension. 7. Opioid therapy is greater than 6 weeks; therefore, an opioid signed contract is on the chart. Risk assessment tool is low. Functional assessment is . 8. Recreational drug use, she denies. She is a former smoker and does not drink alcohol. [facility] [address] [place] [address] PAIN MANAGEMENT CONSULTATION Name: DAVID VINCENT Room #: REG MICHAEL [facility]#: [id number] Admission: 04/17/20 Attend Phys: Hamida Nava Discharge: Date of : 50 Report #: [id number] According to the prescription monitoring system, the patient still has a prescription at the pharmacy to fill for her 8-week prescription. Her morphine mEq according to the CDC guidelines is 84 MME, she does fill in a timely fashion. PHYSICAL EXAMINATION: GENERAL: This is a well-developed, well-nourished, well-hydrated 70-year-old female who appears her stated age. She is anxious today. Her speech is appropriate and fluent. HEENT: Normocephalic, atraumatic. Extraocular eye muscles are intact. Sclerae are nonintrinsic. She is wearing a mask. MUSCULOSKELETAL: Upper extremity strength judged to be 5/5. She is able to move her extremities in all range of motions with some pain in her right arm. Allodynia is present in her right upper extremity. Complains of right knee tenderness today. IMPRESSION: 1. Chronic right brachial plexus avulsion with history of neuropathic pain. 2. Rheumatoid arthritis. 3. Osteoarthritis involving her shoulders and knees. 4. Chronic pain under treatment of opioid medications and agreement. We reviewed the fact that opiate medications are being used to provide analgesia adequate to support activities of daily living, not attempting to achieve a specific pain score on the 0-10 Visual Analog Scale. The current opiate medications are providing sufficient analgesia to allow the patient to participate in activities of daily living. The patient is not exhibiting any aberrant behavior suggestive of drug diversion. The patient is not having any adverse reactions to medications. The patient is not suffering from daytime somnolence or mental acuity changes. The patient is managing opiate-induced constipation with appropriate [id number] agents and dietary considerations. The patient was counseled on concern for caution with operating a motor vehicle while using opiate medications. PLAN: 1. We discussed treatment options with the patient today. The patient does have a methadone prescription that she filled at the pharmacy. She was slightly confused, thinking that she needed to come for an appointment due to the electronic scripts being sent. We have called the pharmacy and instructed them to fill that today for her methadone. Dr. Lai will fill her next prescriptions to fill in, 4-week, 8-week and 12-week. The patient then will need to come in early August or end of July. The patient verbalizes understanding. 2. I will send a script for her gabapentin to fill in June that will correlate with her methadone prescriptions, so she was in a timely fashion for both of those medications. [address] [address] PAIN MANAGEMENT CONSULTATION Name: DAVID VINCENT Room #: PB [facility]#: [id number] Admission: 04/17/20 Attend Phys: Hamida Nava Discharge: Date of : 50 Report #: [id number] 3. The patient encouraged to call for an appointment beginning of July. The patient is seen today in collaboration with Dr. Lai. <ELECTRONICALLY SIGNED> By: Hamida Nava 04/19/20 [id number] Hamida Nava /nt
== END ==
LOC: PAIN 07:00
PROVIDERS: ATTEND Clinical Nurse Specialist Adult Health
DX: G54.0 Brachial plexus disorders (principal); G89.4 Chronic pain syndrome; M06.9 Rheumatoid arthritis, unspecified; M17.0 Bilateral primary osteoarthritis of knee; M19.011 Primary osteoarthritis, right shoulder; M19.012 Primary osteoarthritis, left shoulder; F11.20 Opioid dependence, uncomplicated; Z88.5 Allergy status to narcotic agent; Z79.899 Other long term (current) drug therapy

== ENCOUNTER → 2020-04-25 | Outpatient (CLI) | payer OTHER | LOC: SJCVCIMAG 11:27 | PROVIDERS: ATTEND Internal Medicine Cardiovascular Disease | DX: I08.3 Combined rheumatic disorders of mitral, aortic and tricuspid valves (principal); R94.31 Abnormal electrocardiogram [ECG] [EKG]; I45.10 Unspecified right bundle-branch block; R00.0 Tachycardia, unspecified; I27.20 Pulmonary hypertension, unspecified; I48.0 Paroxysmal atrial fibrillation; G47.33 Obstructive sleep apnea (adult) (pediatric); I11.0 Hypertensive heart disease with heart failure; I50.33 Acute on chronic diastolic (congestive) heart failure; D68.59 Other primary thrombophilia; J44.9 Chronic obstructive pulmonary disease, unspecified; Z79.01 Long term (current) use of anticoagulants; Z79.899 Other long term (current) drug therapy; Z87.891 Personal history of nicotine dependence ==

== ENCOUNTER → 2020-08-25 | Outpatient (CLI) | payer OTHER ==
[~2020-08-25] VITALS: Ht 160 cm; Wt 83.5 kg
--- NOTE | ~2020-08-25 | HPC ---
[facility] [address] [place] [address] PAIN MANAGEMENT CONSULTATION Name: DAVID VINCENT Room #: REG MICHAEL [facility].#: [id number] Admission: 08/25/20 Attend Phys: Asya Lai MD Discharge: Date of : 50 Report #: [id number] THIS REPORT FOR: cc: Cole Hunter MD, Eric K. MD Brown,Asya Calhoun MD ~ CC: Cole Lai DATE OF SERVICE: 08/25/2020 CHIEF COMPLAINT: Right arm pain. HISTORY: The patient is a 70-year-old female who has been followed in the pain clinic. 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 She finds that her medications are helpful. She feels that the methadone and gabapentin are beneficial. She has complained of some pain in the right forearm area. She rates it as a 5/10. She described it as shooting, aching, constant discomfort. She suffered from avulsion of the brachial plexus. She has returned today for renewal of her medications. Pain involves her right wrist, right upper arm, shoulders. She also has some complaints of right knee pain. She feels that it needs to be replaced at some juncture. ALLERGIES: MORPHINE. CURRENT MEDICATIONS: Pulmicort inhaler b.i.d., flecainide 100 mg b.i.d., warfarin 25 mg, Colace 100 mg b.i.d., Tylenol Extra Strength 500 mg, Lovenox 100 mg, Protonix 40 mg, senna 70 mg b.i.d., methadone 10 mg q.8 hours, Lipitor 20 mg, Zoloft 50 mg, potassium 20 mEq, amlodipine 10 mg, Tenormin 50 mg b.i.d., folic acid 1 mg. PAIN CLINIC ASSESSMENT AND PQRS: 1. The patient does have a history of osteoarthritis. She has osteoarthritic changes involving her upper extremity. She is also being treated for rheumatoid arthritis. 2. Height 5 feet 3 inches, weight 184 pounds, BMI is 32. 3. Vital signs: Blood pressure 146/71, pulse 58, respiratory rate 18, room air saturation is 94%. 4. Pain intensity 02/26. 5. Fall risk. The patient has not fallen in the last 3 months. She uses a cane at times. 6. Blood thinner. The patient is on a blood thinning medication, warfarin. 7. History of hypertension. 8. Opioids therapy. The patient receives medication from the pain clinic. 9. Risk assessment tool 0 out of 3 for risk. 10. Functional assessment tool, [place] [address] PAIN MANAGEMENT CONSULTATION Name: DAVID VINCENT Room #: REG [facility]#: [id number] Admission: 08/25/20 Attend Phys: Asya Lai MD Discharge: Date of : 50 Report #: [id number] 11. Recreational drug use: The patient denies. 12. Tobacco: The patient is a former smoker. 13. Alcohol. The patient denies use of alcoholic beverages. PHYSICAL EXAMINATION: GENERAL: The patient is a well-developed, well-nourished white female. Appears her stated age. She is alert and oriented x 3. Her affect is appropriate. Speech is fluent. HEENT: Normocephalic, atraumatic. Extraocular eye muscles intact. Sclerae nonicteric. Mucous membranes are moist. Sclerae nonicteric. The patient is wearing a facial covering. MUSCULOSKELETAL: Upper extremity muscle strength judged to be 5-/5 for the major muscle groups on the right upper extremity and forearm. The patient has complained of pain and is able to move her extremity and reasonable range of motion without significant difficulty. The patient complains of allodynia involving her arm. Lower extremity muscle strength judged to be 5-/5 for the major muscle groups in the lower extremity. Muscle tone appears to be normal. The patient without significant scoliosis, kyphosis or lordosis. IMPRESSION: 1. 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 2. Rheumatoid arthritis. 3. Osteoarthritis involving shoulder and knees. 4. Chronic pain treated with opioid medications to help control the pain. RECOMMENDATIONS: We discussed the risks and benefits of opioid use. The patient is aware these medications can become less effective as time goes on. Feels that the methadone medication as well as the gabapentin medication continue to be helpful with the neuropathic component of her pain. A script for her medications have been written. She will also continue with Protonix. She will continue to follow up with Dr. Laboy who is her paraprofessional aide teacher. She will call us if she has any concerns. We would like to thank you for letting us participate in her care. We hope she continues to improve. By: [id number] Asya Lai MD /rahul
[2020-08-25 12:38] VITALS: BP 146/71
--- NOTE | 2020-08-25 12:41 | NUR ---
Pain Clinic Assessment: 1. History of Osteoarthritis: VANGIE KNEES RIGHT WRIST HANDS History of Rheumatoid Arthritis: YES 2. Height: 5 ft. 3 in. 160.0 cm. Weight: 184.0 lb. oz. 83.462 kg. Patient's BMI: 32.6 3. Vital Signs: BP: 146/71 Pulse: 58 Resp: 18 Temp: 02 Sat: 94 ECG Mon: 4. Pain Intensity: 5 5. Fall Risk: Dizziness: N Needs help standing or walking: N Fallen in the last 3 months: N Fall risk comments: USES CANE SOMETIMES- NOT TODAY 6. Patient on Blood Thinner: WARFARIN 7. History of Hypertension: Y 8. Opioid Therapy greater than 6 weeks: Y Opiate Contract Signed: 05/02/16 9. Risk Assessment Tool Provided: LOW RISK 0/3 10. Functional Assessment Tool: 11. Recreational Drug Use: Never Drug Type: Tobacco Use: Former Smoker Tobacco Type: Amount or Packs/day: How Many Years: Alcohol Use: No Frequency: Quant:
== END ==
LOC: PAIN 06:56
PROVIDERS: ATTEND Anesthesiology Pain Medicine
DX: M79.601 Pain in right arm (principal); M06.9 Rheumatoid arthritis, unspecified; M19.011 Primary osteoarthritis, right shoulder; M19.012 Primary osteoarthritis, left shoulder; M17.0 Bilateral primary osteoarthritis of knee; Z88.8 Allergy status to other drugs, medicaments and biological substances; Z79.899 Other long term (current) drug therapy